=== PATIENT | female | born 1995 | race Caucasian/White ===

== ENCOUNTER 2020-07-16 19:59 | Emergency (ER) | payer MEDICAID, SELFPAY ==
[2020-07-16 20:05] VITALS: BP 110/67; PULSE 64; RESP 16; TEMP 36.4; O2SAT 97; BMI 23.4
--- NOTE | 2020-07-16 20:36 | ED.FEMALEGU ---
HPI - Female Genitourinary General Chief complaint: Vaginal Bleeding Stated complaint: abd pain Time Seen by Provider: 07/16/20 20:27 Source: patient Mode of arrival: ambulatory Limitations: no limitations History of Present Illness HPI Narrative: Who comes to the emergency room complaining of vaginal bleeding for 1 week. Patient states he has been using extra absorbent pads per day the last week. Patient complaining cramping. Patient states a few days ago she was supposed to get her menstrual period. Related Data Previous Rx's Medication Instructions Recorded sulfamethoxazole-trimethoprim 1 tab PO BID #5 tab 07/16/20 [Bactrim] Allergies Allergy/AdvReac Type Severity Reaction Status Date / Time No Known Allergies Allergy Verified 07/16/20 20:05 [No Known Allergies*] Review of Systems Review of Systems: Constitutional : No Weight loss, No Fever, No Chills, No Night Sweats, No Fatigue, No Malaise ENT/Mouth : No Hearing loss, No Ear Pain, No Nasal Congestion, No Sinus Pain, No Hoarseness, No sore throat, No Rhinorrhea, No Swallowing Difficulty Eyes: No Eye Pain, No Swelling, No Redness, No Foreign Body, No Discharge, No Vision Changes Cardiovascular : No Chest Pain, No SOB, No Dyspnea on Exertion, No Orthopnea, No Edema, No Palpitations Respiratory : No Cough, No Sputum, No Wheezing, No Smoke Exposure, No Dyspnea Gastrointestinal : No Nausea, No Vomiting, No Diarrhea, No Constipation, No abdominal Pain, No Hematochezia, No Melena Genitourinary : Patient complaining of irregular vaginal bleeding starting 5 days ago, No Dysuria, No Urinary Frequency, No Hematuria, No Urinary Incontinence, No Urgency, No Flank Pain, No Urinary Flow Changes, No Hesitancy Musculoskeletal : No joint pain, No Myalgias, No Joint Swelling Skin : No Skin Lesions, No rash Neuro : No Weakness, No Numbness, No Paresthesias, No Loss of Consciousness, No Dizziness, No Headache Psych : No Anxiety/Panic, No Depression, No SI/HI/AH/VH, No Social Issues, Heme/Lymph: No Bruising, No Bleeding,No Lymphadenopathy Endocrine : No Polyuria, No Polydipsia, No Temperature Intolerance PMF Past Medical History Surgical History (Updated 07/16/20 @ 20:10 by Kiara Penny) H/O tubal ligation Social History Social History Alcohol intake: unknown Smoked in Last 30 Days: No Use of substances other than those prescribed or required for medical reasons: No Advance Directives: No Advance Directives Information Provided: No Physical Exam Vital Signs: Vital Signs: Last Vital Signs Temp 97.6 F 07/16/20 20:05 Pulse 61 07/16/20 21:26 Resp 16 07/16/20 20:05 BP 101/74 07/16/20 21:26 Pulse Ox 97 07/16/20 20:05 Body Mass Index 23.4 Appearance: Alert. Oriented X3. No acute distress. Eyes: Pupils equal, round and reactive to light. ENT: Pharynx normal. Neck: Normal inspection. Neck supple. No lymph nodes noted. No crepitus CVS: Normal heart rate and rhythm. Pulses normal. Normal S1 and S2 Respiratory: No respiratory distress. Breath sounds normal. No Wheezing. No rales Abdomen: Soft and nontender. No rigidity. No distention. good BS x4 : small to moderate amount of dark colored blood in vaginal canal, there is no active bleeding from the cervix or the vaginal shipley Skin: Skin warm and dry. Normal skin color. Normal skin turgor. Extremities: No lower extremity edema. No lower extremity edema. No Lacerations. No Rash Neuro: Oriented X 3. No motor deficit. No sensory deficit. Moving all extermities. No slurred speech. Course Course Course Narrative: I discussed the labs with the patient, patient will follow-up with her primary care physician. Patient's bleeding likely secondary to dysfunctional uterine bleeding MDM - Female Genitourinary Lab Data Result diagrams: 07/16/20 20:50 07/16/20 20:50 Labs: Lab Results 07/16/20 07/16/20 07/16/20 Range/Units 20:50 20:50 20:50 WBC 8.3 (4.8-10.8) X10*3/uL RBC 4.87 (4.20-5.50) X10*6/uL Hgb 14.1 (12.0-16.0) g/dl Hct 42.9 (37-47) % MCV 88.1 (80-98) fL MCH 29.0 (27.0-33.0) pg MCHC 32.9 (31.0-35.0) g/dl RDW 14.1 (11.0-16.0) % Plt Count 136 L (160-400) X10*3/uL MPV 13.2 H (9.4-12.3) fL Immature Gran % (Auto) 0.1 (0.0-0.4) % Neut % (Auto) 58.0 (45-73) % Lymph % (Auto) 35.5 (20-40) % [place] % (Auto) 3.6 (2-11) % Eos % (Auto) 2.3 (0-4) % Baso % (Auto) 0.5 (0-2) % Lymph # (Auto) 3.0 (1.2-4.9) X10*3/uL [place] # (Auto) 0.3 (0.1-1.2) X10*3/uL Eos # (Auto) 0.2 (0.0-0.4) X10*3/uL Baso # (Auto) 0.0 (0.0-0.2) X10*3/uL Abs Immat Gran (auto) 0.01 (0.00-0.03) X10*3/uL Absolute Neuts (auto) 4.8 (2.0-8.3) X10*3/uL Absolute Nucleated RBC 0.000 (0.0-0.012) X10*3/uL Nucleated RBC % (auto) 0.0 (0.0-0.2) /100WBC Smear Tech's Comments VERIFIED Sodium 142 (135-145) mmol/L Potassium 4.3 (3.3-5.1) mmol/l Chloride 110 H (96-108) mmol/L Carbon Dioxide 23 (22-29) mmol/L Anion Gap 13 (12-20) BUN 12 (9-16) mg/dL Creatinine 0.80 (0.5-1.4) mg/dL Estim Creat Clear Calc 76.5 Estimated GFR > 60 Random Glucose 81 (60-115) mg/dL Calcium 8.5 (8.4-10.2) mg/dL Total Bilirubin 0.3 (0.0-1.0) mg/dL Direct Bilirubin < 0.2 (0.0-0.5) mg/dL AST 14 (5-31) U/L ALT 7 (0-31) U/L Alkaline Phosphatase 67 (39-117) U/L Total Protein 7.0 (6.5-8.0) g/dL Albumin 4.2 (3.5-5.0) g/dL Beta HCG, Quant < 2 mIU/mL Urine Color Urine Appearance Urine pH (5.0-8.0) Ur Specific [place] (1.005-1.025) Urine Protein (NEG-TRACE) MG/DL Urine Glucose (UA) (NEG) MG/DL Urine Ketones (NEG) MG/DL Urine Blood (NEG) Urine Nitrite (NEG) Ur Leukocyte Esterase (NEG) Urine RBC (0) /HPF Urine WBC (0-4) /HPF Ur Squamous Epith Cells /LPF Urine Bacteria /LPF 07/16/ Range/Units 21:14 WBC (4.8-10.8) X10*3/uL RBC (4.20-5.50) X10*6/uL Hgb (12.0-16.0) g/dl Hct (37-47) % MCV (80-98) fL MCH (27.0-33.0) pg MCHC (31.0-35.0) g/dl RDW (11.0-16.0) % Plt Count (160-400) X10*3/uL MPV (9.4-12.3) fL Immature Gran % (Auto) (0.0-0.4) % Neut % (Auto) (45-73) % Lymph % (Auto) (20-40) % [place] % (Auto) (2-11) % Eos % (Auto) (0-4) % Baso % (Auto) (0-2) % Lymph # (Auto) (1.2-4.9) X10*3/uL [place] # (Auto) (0.1-1.2) X10*3/uL Eos # (Auto) (0.0-0.4) X10*3/uL Baso # (Auto) (0.0-0.2) X10*3/uL Abs Immat Gran (auto) (0.00-0.03) X10*3/uL Absolute Neuts (auto) (2.0-8.3) X10*3/uL Absolute Nucleated RBC (0.0-0.012) X10*3/uL Nucleated RBC % (auto) (0.0-0.2) /100WBC Smear Tech's Comments Sodium (135-145) mmol/L Potassium (3.3-5.1) mmol/l Chloride (96-108) mmol/L Carbon Dioxide (22-29) mmol/L Anion Gap (12-20) BUN (9-16) mg/dL Creatinine (0.5-1.4) mg/dL Estim Creat Clear Calc Estimated GFR Random Glucose (60-115) mg/dL Calcium (8.4-10.2) mg/dL Total Bilirubin (0.0-1.0) mg/dL Direct Bilirubin (0.0-0.5) mg/dL AST (5-31) U/L ALT (0-31) U/L Alkaline Phosphatase (39-117) U/L Total Protein (6.5-8.0) g/dL Albumin (3.5-5.0) g/dL Beta HCG, Quant mIU/mL Urine Color RED Urine Appearance TURBID Urine pH 5.0 (5.0-8.0) Ur Specific [place] 1.025 (1.005-1.025) Urine Protein 3+ H (NEG-TRACE) MG/DL Urine Glucose (UA) 100 H (NEG) MG/DL Urine Ketones 15 (NEG) MG/DL Urine Blood 3+ H (NEG) Urine Nitrite POS H (NEG) Ur Leukocyte Esterase 2+ H (NEG) Urine RBC TNTC H (0) /HPF Urine WBC 1-4 (0-4) /HPF Ur Squamous Epith Cells TRACE /LPF Urine Bacteria 2+ /LPF Discharge Plan Discharge Clinical Impression: Dysfunctional uterine bleeding UTI (urinary tract infection) Qualifiers: Urinary tract infection type: site unspecified Patient Disposition: Home, Self-Care Instructions: Dysfunctional Uterine Bleeding (ED) Additional Instructions: Please follow-up with your primary care physician tomorrow. If you have any worsening or new symptoms, please return to the emergency room or call 911 Prescriptions: New sulfamethoxazole-trimethoprim [Bactrim] 400-80 mg tablet 1 tab PO BID Qty: 5 RF: 0
[2020-07-16 20:56] LABS: Hemoglobin 14.1 g/dl (12.0-16.0); Lymphocytes Percent Auto 35.5 % (20-40); MANUAL DIFF FLAG SCAN; Mean Corpuscular HGB Conc 32.9 g/dl (31.0-35.0); Mean Corpuscular Volume 88.1 fL (80-98); Red Cell Distribution Width 14.1 % (11.0-16.0); SCAN SMEAR FLAG 1
[2020-07-16 20:58] LABS: Basophils Percent Auto 0.5 % (0-2); Eosinophils Absolute Auto 0.2 X10*3/uL (0.0-0.4); Eosinophils Percent Auto 2.3 % (0-4); Hematocrit 42.9 % (37-47); Imm Gran Abs Auto 0.01 X10*3/uL (0.00-0.03); Imm Gran Pct Auto 0.1 % (0.0-0.4); Mean Platelet Volume 13.2 fL (9.4-12.3); Monocytes Absolute Auto 0.3 X10*3/uL (0.1-1.2); Monocytes Percent Auto 3.6 % (2-11); Neutrophils Absolute Auto 4.8 X10*3/uL (2.0-8.3); Platelet Count 136 X10*3/uL (160-400); Red Blood Count 4.87 X10*6/uL (4.20-5.50); White Blood Count 8.3 X10*3/uL (4.8-10.8)
--- NOTE | 2020-07-16 20:59 | PC.NURSE ---
pT A&O, NO SOB OR CHEST PAIN. PT STATED SHE IS HAVING IRREGULAR PERIOD.
[2020-07-16 21:00] LABS: PLT ABN DIST 1
[2020-07-16 21:18] LABS: SLIDE REVIEW VERIFIED
[2020-07-16 21:19] LABS: Alanine Aminotransferase 7 U/L (0-31); Albumin Level 4.2 g/dL (3.5-5.0); Alkaline Phosphatase 67 U/L (39-117); Anion Gap 13 (12-20); Aspartate Amino Transferase 14 U/L (5-31); Bilirubin Direct < 0.2 mg/dL (0.0-0.5); Bilirubin Total 0.3 mg/dL (0.0-1.0); Blood Urea Nitrogen 12 mg/dL (9-16); Calcium 8.5 mg/dL (8.4-10.2); Carbon Dioxide 23 mmol/L (22-29); Chloride 110 mmol/L (96-108); Creatinine Clr Calc Pharmacy 76.5; Estimated Glomerular Filt Rate > 60; Glucose Random 81 mg/dL (60-115); Potassium 4.3 mmol/l (3.3-5.1); Sodium 142 mmol/L (135-145)
[2020-07-16 21:25] LABS: HCG Quantitative < 2 mIU/mL
[2020-07-16 21:26] VITALS: BP 101/74; PULSE 61
[2020-07-16] MEDS: Acetaminophen 325 MG TABLET 650 MG PO (21:26)
[2020-07-16 21:34] LABS: Glucose Urine UA 100 MG/DL (NEG); Leukocyte Esterase Urine 2+ (NEG); Nitrite Urine POS (NEG); Specific Gravity - Urine 1.025 (1.005-1.025); Urine Blood 3+ (NEG); Urine Ketones 15 MG/DL (NEG); Urine Protein 3+ MG/DL (NEG-TRACE)
[2020-07-16 21:58] LABS: Appearance Urine TURBID; Color Urine RED
[2020-07-16 21:59] LABS: Bacteria Urine 2+ /LPF; RBC Urine TNTC /HPF (0); Squamous Epithelial Cell Urine TRACE /LPF
--- NOTE | 2020-07-16 23:12 | PC.NURSE ---
pt had no abd pain or n/v. no denies any heavy bleeding at this time.
== END 2020-07-16 23:25 | disposition home or self-care (01) ==
PROVIDERS: Emergency Provider Emergency Medicine; PCP Nurse Practitioner Family
DX: N93.8 Other specified abnormal uterine and vaginal bleeding (principal); N39.0 Urinary tract infection, site not specified
CPT/HCPCS: 36415; 80048; 80076; 81001; 84702; 85025; 87086; 87147; 99283; 99284

== ENCOUNTER 2022-12-11 14:45 | Outpatient (REF) | payer MEDICAID, SELFPAY ==
--- NOTE | ~2022-12-11 | US_ITS ---
EXAMINATION: US DIAGNOSTIC ULTRASOUND BREAST, LEFT CLINICAL INFORMATION: 27-year-old with recent left breast pain. Small palpable nodule noted anterior lateral left breast at time of clinical exam. No ecchymosis. No discharge. Family history breast cancer maternal aunt. No prior breast imaging. TC score 13%. COMPARISON: None available.. TECHNIQUE: Ultrasound left breast is targeted to both areas of recent left breast pain as well as the palpable area noted at clinical exam. Grayscale imaging and color Doppler are performed without and with harmonics. Patient is able to point areas at time of imaging. FINDINGS: There is a small oval simple cyst at site of recent palpable concern anterior upper outer left breast measuring approximately 0.7 x 0.3 cm. There is no solid mass or architectural abnormality or focal duct ectasia. The remainder of the targeted areas demonstrate no cystic or solid mass or architectural abnormality. No skin thickening or edema tracking in soft tissue planes. No abnormal color flow. Results are discussed with the patient at time of visit. US/US breast LT limited IMPRESSION: -Small simple cyst at site of recent palpable concern measuring 0.7 x 0.3 cm. -No solid mass or architectural abnormality. No inflammatory changes. ASSESSMENT: BI-RADS 2: Benign RECOMMENDATION: Routine annual mammography screening, beginning age 40, or earlier as clinical risk factors warrant. This patient's information was entered into a reminder system with a target due date for their next mammogram.
== END 2022-12-11 14:46 | disposition home or self-care (01) ==
LOC: HO.MAMMO 14:45
PROVIDERS: Visit Provider General Practice
DX: N64.4 Mastodynia (principal)
CPT/HCPCS: 76642

== ENCOUNTER 2023-06-17 15:45 | Outpatient (REF) | payer MEDICAID, SELFPAY ==
[2023-06-18 13:41] LABS: CT PCR NOT DETECTED (Not Detect.); NG PCR NOT DETECTED (Not Detect.)
== END 2023-06-17 15:46 | disposition home or self-care (01) ==
LOC: HO.HHCL 15:45
PROVIDERS: Visit Provider Student in an Organized Health Care Education/Training Program
DX: Z11.3 Encounter for screening for infections with a predominantly sexual mode of transmission (principal)
CPT/HCPCS: 0353U

== ENCOUNTER 2023-07-15 16:29 | Outpatient (REF) | payer MEDICAID, SELFPAY ==
[2023-07-16 07:22] LABS: HBS Num1 0.22 mIU/mL (0-7.99); HBc Num1 0.05 S/CO (0.00-0.79); HBsAGNum1 0.44 S/CO (0.00-0.99); HIV AB/AG Nonreactive (Nonreactive); HIV Num 1 0.07 S/CO (0.00-0.99); Hepatitis A Antibody IgM 0.16 Index (0-0.79); Hepatitis B Core Antibody Nonreactive (Nonreactive); Hepatitis B Surface Antigen Negative (Negative); ~HepC Num1 0.05 S/CO (0.00-0.79); ~Hepatitis A Antibody IgM Nonreactive (Nonreactive); ~Hepatitis B Surface Antibody NONREACTIVE (Nonreactive); ~Hepatitis C Antibody Nonreactive (Nonreactive)
[2023-07-16 15:56] LABS: CT PCR NOT DETECTED (Not Detect.); NG PCR NOT DETECTED (Not Detect.)
[2023-07-17 12:01] LABS: BV Int Neg Control Negative (Negative); BV Int Pos Control Positive (Positive)
[2023-07-18 09:34] LABS: RPR Rapid Plasma Reagin NON-REACTIVE (NON-REACTIVE)
== END 2023-07-15 16:30 | disposition home or self-care (01) ==
LOC: HO.HHCL 16:29
PROVIDERS: Visit Provider Internal Medicine
DX: N89.8 Other specified noninflammatory disorders of vagina (principal)
CPT/HCPCS: 0353U; 36415; 86592; 86704; 86706; 86709; 86803; 87340; 87389; 87480; 87510; 87660

== ENCOUNTER 2023-09-04 12:17 | Outpatient (REF) | payer MEDICAID, SELFPAY | END 2023-09-04 12:18 | disposition home or self-care (01) | LOC: HO.HHCL 12:17 | PROVIDERS: Visit Provider Student in an Organized Health Care Education/Training Program | DX: Z00.00 Encounter for general adult medical examination without abnormal findings (principal); R93.89 Abnormal findings on diagnostic imaging of other specified body structures; Z11.3 Encounter for screening for infections with a predominantly sexual mode of transmission; Z11.59 Encounter for screening for other viral diseases; Z13.220 Encounter for screening for lipoid disorders; Z13.1 Encounter for screening for diabetes mellitus; Z13.29 Encounter for screening for other suspected endocrine disorder | CPT/HCPCS: 36415; 80053; 80061; 83036; 84443; 85025; 86704; 86706; 86780; 86803; 87340; 87389 ==

== ENCOUNTER 2024-05-20 | Outpatient (REF) | payer MEDICAID, SELFPAY | END 2024-05-20 00:01 | disposition home or self-care (01) | LOC: HO.HHCLNP | PROVIDERS: Visit Provider Internal Medicine | DX: M54.50 Low back pain, unspecified (principal) | CPT/HCPCS: 87086 ==

== ENCOUNTER 2024-07-16 16:32 | Outpatient (REF) | payer MEDICAID, SELFPAY ==
[2024-07-16 16:51] LABS: Appearance Urine Clear; Color Urine Yellow; Glucose Urine UA Negative (Negative); Leukocyte Esterase Urine Trace (Negative); Nitrite Urine Negative (Negative); PH 6.5 (5.0-9.0); Specific Gravity - Urine 1.025 (1.005-1.025); UMIC TRIGGER UACC YES; Urine Blood Negative (Negative); Urine Ketones Negative (Negative); Urine Protein Negative (Neg-Trace)
[2024-07-16 16:54] LABS: Bacteria Urine None Seen (None Seen); Hyaline Casts Urine 0-2 /LPF (0-2); RBC Urine 0-2 /HPF (0-2); Squamous Epithelial Cell Urine 0-2 /HPF (0-2); UACC Culture Trigger YES
[2024-07-16 18:14] LABS: Bacterial Vaginosis PCR POSITIVE (Negative); Candida Group PCR NOT DETECTED (Not Detect); Candida glab krusei PCR NOT DETECTED (Not Detect); Trichomonas vaginalis PCR DETECTED (Not Detect)
[2024-07-17 04:41] LABS: CT PCR NOT DETECTED (Not Detect.); NG PCR NOT DETECTED (Not Detect.)
== END 2024-07-16 16:33 | disposition home or self-care (01) ==
LOC: HO.HHCLNP 16:32
PROVIDERS: Visit Provider Student in an Organized Health Care Education/Training Program
DX: R10.2 Pelvic and perineal pain (principal)
CPT/HCPCS: 0352U; 81001; 87086; 87491; 87591

== ENCOUNTER 2024-07-23 10:24 | Outpatient (REF) | payer MEDICAID, SELFPAY ==
[2024-07-23 11:21] LABS: MANUAL DIFF FLAG NO
[2024-07-23 11:26] LABS: Basophils Percent Auto 0.5 % (0-2); Eosinophils Absolute Auto 0.1 X10*3/uL (0.0-0.4); Eosinophils Percent Auto 0.7 % (0-4); Hematocrit 41.2 % (37.0-47.0); Hemoglobin 13.9 g/dl (12.0-16.0); Imm Gran Abs Auto 0.03 X10*3/uL (0.00-0.03); Imm Gran Pct Auto 0.4 % (0.0-0.4); Lymphocytes Absolute Auto 2.3 X10*3/uL (1.2-4.9); Lymphocytes Percent Auto 27.4 % (20-40); Mean Corpuscular HGB Conc 33.7 g/dl (31.0-35.0); Mean Corpuscular Hemoglobin 29.3 pg (27.0-33.0); Mean Corpuscular Volume 86.7 fL (80.0-98.0); Mean Platelet Volume 12.9 fL (9.4-12.3); Monocytes Absolute Auto 0.4 X10*3/uL (0.1-1.2); Monocytes Percent Auto 5.1 % (2-11); Neutrophils Absolute Auto 5.6 x10*3/uL (2.0-8.3); Neutrophils Percent Auto 65.9 % (45-73); Platelet Count 161 X10*3/uL (160-400); Red Blood Count 4.75 X10*6/uL (4.20-5.50); Red Cell Distribution Width 15.2 % (11.0-16.0); White Blood Count 8.5 X10*3/uL (4.8-10.8)
[2024-07-23 11:47] LABS: Alanine Aminotransferase 18 U/L (0-31); Alkaline Phosphatase 66 U/L (39-117); Anion Gap 9 (12-20); Aspartate Amino Transferase 24 U/L (5-31); Bilirubin Total 0.2 mg/dL (0.0-1.0); Blood Urea Nitrogen 9 mg/dL (9-16); Calcium 9.2 mg/dL (8.4-10.2); Carbon Dioxide 25 mmol/L (22-29); Chloride 111 mmol/L (96-108); Estimated Glomerular Filt Rate > 60; Glucose Random 89 mg/dL (60-115); Sodium 141 mmol/L (135-145); Total Protein 6.5 g/dL (6.5-8.0)
[2024-07-23 12:00] LABS: HBc Num1 0.09 S/CO (0.00-0.79); HBsAGNum1 0.37 S/CO (0.00-0.99); Hepatitis B Core Antibody Nonreactive (Nonreactive); Hepatitis B Surface Antigen Negative (Negative); ~Hepatitis B Surface Antibody NONREACTIVE (Nonreactive)
[2024-07-24 11:49] LABS: HIV AB/AG Nonreactive (Nonreactive); Syphilis Screen Nonreactive (Nonreactive); ~HepC Num1 0.12 S/CO (0.00-0.79); ~Hepatitis C Antibody Nonreactive (Nonreactive)
[2024-07-26 11:24] LABS: HIV RNA PCR Qn Copies NOT DETECTED copies/mL (NOT DETECTED); HIV RNA PCR Qn Log Copies NOT DETECTED (NOT DETECTED)
== END 2024-07-23 10:25 | disposition home or self-care (01) ==
LOC: HO.HHCL 10:24
PROVIDERS: Visit Provider Student in an Organized Health Care Education/Training Program
DX: Z11.4 Encounter for screening for human immunodeficiency virus [HIV] (principal); R10.2 Pelvic and perineal pain; Z79.899 Other long term (current) drug therapy
CPT/HCPCS: 36415; 80053; 85025; 86704; 86706; 86780; 86803; 87340; 87389; 87536

== ENCOUNTER 2024-08-31 17:54 | Outpatient (REF) | payer MEDICAID, SELFPAY ==
[2024-09-01 05:26] LABS: CT PCR NOT DETECTED (Not Detect.); NG PCR NOT DETECTED (Not Detect.)
[2024-09-01 08:43] LABS: Bacterial Vaginosis PCR POSITIVE (Negative); Candida Group PCR NOT DETECTED (Not Detect); Candida glab krusei PCR NOT DETECTED (Not Detect); Trichomonas vaginalis PCR NOT DETECTED (Not Detect)
== END 2024-08-31 17:55 | disposition home or self-care (01) ==
LOC: HO.HHCLNP 17:54
PROVIDERS: Visit Provider Internal Medicine
DX: N89.8 Other specified noninflammatory disorders of vagina (principal); Z11.3 Encounter for screening for infections with a predominantly sexual mode of transmission
CPT/HCPCS: 0352U; 87491; 87591

== ENCOUNTER 2024-10-01 15:59 | Outpatient (REF) | payer MEDICAID, SELFPAY ==
--- OUTSIDE RECORDS SUMMARY | 2024-10-01 19:28 | XMS_ITS | Encounter Summary ---
Author Organization [facility] Address [address] [place] [phone] Phone Care Team Providers Care Core Stripper Name Role Phone Ericka Cheek MD Primary Care Provider [phone] Encounter Details Date Type Department Care Team (Late st Contact Info) Description 03/12/2012 Documentation EM Family Medicine [address] [place] [address] Family Medicine, Physician [address] [place], [place] [phone] Social History Tobacco Use Types Packs/Day Years Used Date Smoking Tobacco: Never Assessed Comments Unknown Sex and Gender Information Value Date Recorded Sex Assigned at Not on file Legal Sex Female 4:37 PM EDT Gender Identity Not on file Sexual Orientation Not on file documented as of this encounter Plan of Treatment Not on file documented as of this encounter Visit Diagnoses Not on filedocumented in this encounter Care Teams Core Stripper Relationship Specialty Start Date End Date Ericka Cheek MD [address] [place] [address] [place] [address] PCP - General 04/12/17 02/28/23 documented as of this encounter
--- OUTSIDE RECORDS SUMMARY | 2024-10-01 19:28 | XMS_ITS | Encounter Summary ---
Author Organization [employer] Address [address] [facility] 7t [place] [address] Care Team Providers Care Senior Occupational Therapist Name Role Phone Eli Kenny MD Primary Care Pro vider Encounter Details Date Type Department Care Team ([facility] Contact Info) Description 09/01/2024 Telephone [facility] MED & PEDS [address] [place], [place] [phone] Filemon Monge MD [address] [place], [place] [phone] Social History Tobacco Use Types Packs/Day Years Used Date Smoking Tobacco: Some Days Cigarettes Passive Smoke Exposure: Never Smokeless Tobacco: Never Comments:Start smoking 17 y of age ,stopped for few years , 1-2 cig a day Alcohol Use Standard Drinks/Week Comments Never 0 (1 standard drink = 0.6 oz pur e alcohol) Depression Answer Date Recorded Patient Health Questionnaire-9 Score 3 05/17/2023 Housing Stability Answer Date Recorded What is your housing situation today? I have emmanuelle olson 06/17/[address] you li ve. Do you have problems with any of the following? None of the above 06/17/2023 Food Insecurity Answer Date Recorded Within the past 12 months, y ou worried that your food would run out before you got money to buy more: Sometimes True 2022 Within the past 12 months,th e food you bought just didn't last and you didn't have enough money to get more: Sometimes True 06/17/2023 Transportation Answer Date Recorded In the past 12 months, has l ack of transportation kept you from medical appts, meetings, work or from getting things needed for daily living? Yes, it has kept me from medical appointments or getting medications. 06/11/2023 Utilities Answer Date Recorded In the past 12 months, has t he electric, gas, oil or water company threatened to shut off services in your home? No 06/17/2023 Depression Answer Date Recorded Patient Health Questionnaire-2 Score 1 05/17/2023 Comments Unknown Sex and Gender Information Value Date Recorded Sex Assigned at Female 07/02/2022 10:24 AM EDT Legal Sex Female 10:24 AM EDT Gender Identity Female 07/02/2022 10:24 AM EDT Sexual Orientation Straight 07/02/2022 10 :24 AM EDT documented as of this encounter Miscellaneous Notes * Telephone Encounter - Yifan Torres RN - 09/01/2024 9:22 AM EST Patient returned the call. RN informed patient of message below from Dr. Monge. Patient verbalized understanding and agreed to plan. * Telephone Encounter - Yifan Torres RN - 09/01/2024 9:11 AM EST Call placed to patient to inform of message below from Dr. Monge. No answer, left voicemail to return the call. Sending task to PCP's team nurse's to re- attempt call. * Telephone Encounter - Yifan Torres RN - 09/01/2024 9:11 AM EST ----- Message from Filemon Monge MD sent at 09/01/2024 9:00 AM EST ----- Please call. Workup is positive for bacterial vaginosis. Patient was already prescribed metronidazole to start taking 2 times a day for 7 days. No change in management for now. ----- Message ----- From: Iveth Ricardo MA Sent: 08/31/2024 11:20 AM EST To: Filemon Monge MD documented in this encounter Plan of Treatment Not on file documented as of this encounter Visit Diagnoses Not on filedocumented in this encounter Additional Health Concerns Assessment Noted Time PHQ-9 Depression Total Score: 3 05/17/20 23 1:39 PM EDT documented as of this encounter Care Teams Senior Occupational Therapist Relationship Specialty Start Date End Date Eli Kenny MD [address] [place] [address] PCP - General Internal Medicine 02/06/23 documented as of this encounter
--- OUTSIDE RECORDS SUMMARY | 2024-10-01 19:28 | XMS_ITS | Encounter Summary ---
Author Organization [employer] Address [address] [facility] 7 [place] [address] Care Team Providers Care Crushing Mill Operator Name Role Phone Eli Kenny MD Primary Care Pro vider Encounter Details Date Type Department Care Team ([facility] st Contact Info) Description 09/01/2024 Orders Only [facility] CH[facility] MED & PEDS [address] [place], [place] [phone] Filemon Monge MD [address] [place], [place] [phone] Social History Tobacco Use Types Packs/Day Years [...] AM EDT documented as of this encounter Plan of Treatment Not on file documented as of this encounter Visit Diagnoses Not on filedocumented in this encounter Additional Health Concerns Assessment Noted Time PHQ-9 Depression Total Score: 3 05/17/20 23 1:39 PM EDT documented as of this encounter Care Teams Crushing Mill Operator Relationship Specialty Start Date End Date Eli Kenny MD [address] [place] [id number] PCP - General Internal Medicine 02/06/23 documented as of this encounter
--- OUTSIDE RECORDS SUMMARY | 2024-10-01 19:28 | XMS_ITS | Encounter Summary ---
Author Organization [employer] Address [address] [facility] 7[address] [place] [address] Care Team Providers Care Communications Programmer Name Role Phone Eli Kenny MD Primary Care Pro vider Encounter Details Date Type Department Care Team (Latest Contact Info) Description 10/01/2024 Travel Social History Tobacco Use Types Packs/Day Years [...] Patient Health Questionnaire-2 Score 1 05/17/2023 Comments No Sex and Gender Information Value Date Recorded [...] documented as of this encounter Care Teams Communications Programmer Relationship Specialty Start Date End Date Eli Kenny MD [address] [place] [id number] PCP - General Internal Medicine 02/06/23 documented as of this encounter
--- OUTSIDE RECORDS SUMMARY | 2024-10-01 19:28 | XMS_ITS | Encounter Summary ---
Author Organization [employer] Address [address] [facility] 7 [place] [address] Care Team Providers Care Billiard Parlor Manager Name Role Phone Eli Kenny MD Primary Care Pro vider Reason for Visit * Reason Onset Date Comments medication 07/19/2023 Encounter Details Date Type Department Care Team ([facility] st Contact Info) Description 07/19/2023 Telephone [facility] ADULT DENTAL [address], [place] [phone] Alfredito Diaz DDS [address] [place] [address] medication Social History Tobacco Use Types Packs/Day Years [...] encounter Miscellaneous Notes * Telephone Encounter - Tasha Almaraz - 07/19/2023 2:47 PM EST Patient is looking for a script for pain to be sent to the pharmacy because the tylenol is not working. Patient was seen with [employer] student documented in this encounter Plan of Treatment Not on file documented as of this encounter Visit Diagnoses Not on filedocumented in this encounter Additional Health Concerns Assessment Noted Time PHQ-9 Depression Total Score: 3 05/17/20 23 1:39 PM EDT documented as of this encounter Care Teams Billiard Parlor Manager Relationship Specialty Start Date End Date Eli Kenny MD [address] [place] [id number] PCP - General Internal Medicine 02/06/23 documented as of this encounter
--- OUTSIDE RECORDS SUMMARY | 2024-10-01 19:28 | XMS_ITS | Encounter Summary ---
Author Organization [employer] Address [address] [place] [address] Care Team Providers Care Financial Sales Advisor Name Role Phone Eli Kenny MD Primary Care Pro vider Reason for Referral * Consultation (Routine) - Closed Specialty Diagnoses / Procedures Referred By Danyel coronado Referred To Contact Obstetrics Diagnoses Procreative management Anu Ramirez CNM [address] [place] [address] Phone: tel: fax: Reproductive Medicine[address] Phone: tel: fax: Referral ID Status Reason Start Date Expiration Date V isits Requested Visits Authorized [id number] Closed Specialty Services Required 10/01/2024 10/01/2025 1 1 Encounter Details Date Type Department Care Team (Latest Contact Info) Description 10/01/2024 11:00 AM EST Procedure Visit [facility] [address], [place] [phone] Anu Ramirez CNM [address], [place] [phone] Cervical cancer screening (Primary Dx); Procreative management; Nausea; Vaginal discharge Social History Tobacco Use Types Packs/Day Years [...] AM EDT documented as of this encounter Last Filed Vital Signs Vital Sign Reading Time Taken Comments Blood Pressure 116/73 10/01/2024 11:21 AM EST Pulse 66 10/01/2024 11:21 AM EST Temperature 36.4 ??C (97.5 ??F) 10/01/2024 11:[address] Respiratory Rate 20 10/01/2024 11:21 AM EST Oxygen Saturation 99% 10/01/2024 11:21 AM EST Inhaled Oxygen Concentration - - Weight 55.2 kg (121 lb 9.6 oz) 10/01/2024 11:21 AM EST Height 151.1 cm (4' 11.5 ) 10/01/2024 11:[address] Body Mass Index 24.15 10/01/2024 11:21 AM EST documented in this encounter Progress Notes * Anu Ramirez CNM - 10/01/2024 11:00 AM EST Subjective Patient ID: Cadence Medrano is a 29 y.o. female who presents for pap Here for pap, unsure of last pap. Treated for bacterial vaginosis 08/2024, Gonorrhea/Chlamydia/trichomonas negative. Previous history of trichomonas. Still notes discharge after finishing bacterial vaginosis treatment. She isn't sure if partner was ever treated. Has tubal ligation. Interested in tubal ligation reversal. . Previously on Truvada PrEP, doesn't want to continue. Not interested in DoxyPEP at this time. HIV, Hep C, syphilis Gonorrhea/Chlamydianegative with CRS 09/28/2024. Assisted AMAB partner, no safety concerns. Cadence is in residential with children, in process of getting more permanent housing. Feels safe. Notes some dryness of bilateral breast skin since being in residential. Using moisturizer which helps. LMP around 09/06. Notes nausea, some cramping/bloating, increased appetite and urinary frequency. Patient seen in conjunction with Brandy Ricardo, [employer] student. I was present for and confirmed all pertinent elements in the history, exam, assessment of the patient, and the plan of care, and agree with all findings. Review of Systems Genitourinary: Positive for frequency and vaginal discharge. Negative for decreased urine volume, dyspareunia, dysuria, flank pain, hematuria, menstrual problem, pelvic pain, urgency, vaginal bleeding and vaginal pain. Objective BP 116/73 (BP Location: Left arm, Patient Position: Sitting, BP Cuff Size: Adult) Pulse 66 Temp97.5 ??F (36.4 ??C) (Temporal) Resp 20 Ht 4' 11.5 (1.511 m) Wt 121 lb 9.6 oz (55.2 kg) LMP09/06/2024 (Approximate) SpO2 99% BMI 24.15 kg/m?? Physical Exam Exam conducted with a statement services representative present (Anu Ramirez CNM). Constitutional: Appearance: Normal appearance. Chest: Breasts: Right: Normal. No swelling, bleeding, inverted nipple, mass, nipple discharge, skin change or tenderness. Left: Normal. No swelling, bleeding, inverted nipple, mass, nipple discharge, skin change or tenderness. Genitourinary: General: Normal vulva. Labia: Right: No rash, tenderness, lesion or injury. Left: No rash, tenderness, lesion or injury. Vagina: Normal. No signs of injury and foreign body. No vaginal discharge, erythema, tenderness, bleeding or lesions. Cervix: No cervical motion tenderness, discharge, friability, lesion, erythema, cervical bleeding or eversion. Uterus: Normal. Not enlarged and not tender. Adnexa: Right adnexa normal and left adnexa normal. Right: No mass, tenderness or fullness. Left: No mass, tenderness or fullness. Lymphadenopathy: Upper Body: Right upper body: No supraclavicular or axillary adenopathy. Left upper body: No supraclavicular or axillary adenopathy. Neurological: Mental Status: She is alert. Psychiatric: Mood and Affect: Mood normal. Behavior: Behavior normal. Assessment/Plan Diagnoses and all orders for this visit: Cervical cancer screening - Pap Smear Cotest today. Will contact with results. Procreative management Discussed BTL as permanent control. If she is interested in future pregnancies, she would need either surgery to attempt to reverse BTL or in-vitro fertilization. Insurance may not cover these procedures. She would like referral to discuss further with infertility specialist. Nausea - POCT , urine manually resulted test negative today. Advised followup with PCP if symptoms persist. May also come to walkin clinic. Vaginal discharge - Bacterial Vaginosis Panel Bacterial vaginosis swab sent today. Will contact with results. Normal breast exam today. Continue moisturizer. documented in this encounter Plan of Treatment Scheduled Orders Name Type Priority Associated Diagnoses Order Schedule Pap Smear Pathology and Cytology Routine Cervical cancer screening Ordered: 10/01/2024 Bacterial Vaginosis Panel Microbiology Routine Vaginal discharge Ordered: 10/01/2024 Scheduled Referrals Name Type Priority Associated Diagnoses Order Schedule Referral to Infertility Outpatient Referral Routine Procreative management Expected: 10/01/2024 (Approximate), Expires: 10/01/2025 documented as of this encounter Procedures Procedure Name Priority Date/Time Associated Diagnosis Comments POCT , URINE Routine 10/01/2024 12:00 PM EST Nausea documented in this encounter Results * POCT , urine manually resulted (10/01/2024 12:00 PM EST) Preg Test, Ur Negative Negative, Indeterminate, None Detected, Invalid, Specimen unsatisfactory for evaluation, Weakly Positive QC Media Lot # [id number] Lot# Expiration Date [id number] Urine 10/01/2024 12:0 0 PM EST Anu MONTES POINT OF CARE TEST ENTER/ EDIT ORDERABLES Final Result documented in this encounter Visit Diagnoses Diagnosis Cervical cancer screening- Primary Screening for malignant neoplasm of the cervix Procreative management Nausea Nausea alone Vaginal discharge Leukorrhea, not specified as infective documented in this encounter Additional Health Concerns Assessment Noted Time PHQ-9 Depression Total Score: 3 05/17/20 23 1:39 PM EDT documented as of this encounter Care Teams Financial Sales Advisor Relationship Specialty Start Date End Date Eli Kenny MD [address] [place] [id number] PCP - General Internal Medicine 02/06/23 documented as of this encounter
--- OUTSIDE RECORDS SUMMARY | 2024-10-01 19:28 | XMS_ITS | Clinical Summary ---
Author Organization [employer] Address [address] [place] [address] 7 [place] [address] Care Team Providers Care [employer] Name Role Phone Eli Kenny MD Primary Care Pro vider Allergies No known active allergies Medications * This document contains information received from the source organization and may not represent a complete record from that organization. emtricitabine- tenofovir DF (Truvada) 200-300 MG tablet Take 1 tablet by mouth Once per day. 30 tablet 2 4 025 Active Additional Information Patient not taking.Reported on 07/16/2024 Cabotegravir ER (Apretude) 600 MG/3ML Suspension Extended Release 3 mL by Intramuscular route every 8 (eight) weeks. Ventrogluteal inj,start injection every month for 2 doses and then every other month 3 mL 3 4 025 Additional Information Patient not taking.Reported on 07/16/2024 metroNIDAZOLE (Flagyl) 500 MG tabletIndicati ons:Vaginal discharge Take 1 tablet (500 mg) by mouth 2 times daily for 7 days. 14 tablet 4 025 Active Problems Problem Noted Date Diagnosed Date Pelvic pain 07/16/2024 Acute right-sided low back pain without sciatica 05/20/2024 Breast pain 05/20/2024 History of tooth extraction 07/19/2023 Dental caries 07/16/2023 Family conflict 06/24/2023 Healthcare maintenance 05/18/2023 High risk sexual behavior 05/18/2023 Decreased hearing 05/18/2023 Tobacco use 05/18/[address] scan 05/18/2023 Depression, unspecified 05/18/2023 Assessment & Plan (06/24/2023 2:27 PM EDT): Assessment: Patient presents with depressive symptoms. No risk for self-harm, SI, or HI. Reason for visit is to assess symptoms and provide support to patient. Symptoms are present in the passing of her mother one year ago. Provided education on how to cope with symptoms. provider will complete referral for OP therapy. At this time Cadence Medrano meets criteria for Visit Diagnoses: Problem List Items Addressed This Visit Other Depression, unspecified - Primary Family conflict Patient ready to address current needs Yes Strengths include support from aunt PLAN: 1. Follow up with [facility]: Not recommended for follow-up 2. Patient goal is be connected with a therapist 3. Behavioral Recommendations a. Utilize coping skills provided b. Engage in OP therapy once established c. Reach out to [facility] for additional support Headache 05/18/2023 Encounters Date Type Department Care Team Description 10/01/2024 11:00 AM EST Procedure Visit [address] [address] Aun Ramirez CNM Cervical cancer screening (Primary Dx); Procreative management; Nausea; Vaginal discharge 10/01/2024 Travel 09/22/[address] [address] Eli Kenny MD Call Back Request 09/01/2024 Telephone [facility] [address] [place] [phone] Filemon Monge MD 09/01/2024 Orders Only [facility] [address] [place] [address] Filemon Monge MD 08/31/2024 11:20 AM EST Office Visit [facility] [address] [place] [phone] Filemon Monge MD Screen for STD (sexually transmitted disease) (Primary Dx); Vaginal discharge 08/24/[address] [address] Eli Kenny MD Nurse Triage 07/24/[address] [place] [address] Belinda Boateng, commercial electrician Orders 07/23/2024 Orders Only [address] [address] Eli Kenny MD 07/23/2024 Telephone [facility] [address] [place] [phone] Eli Kenny MD Commincation/Results Request (Pt called in requesting results. Per Pedi FD stated to pt, message will be sent to [facility] number. # in chart confirmed. Pt verbally agreed./) 07/22/[address] [address] Eli Kenny MD 07/17/2024 Orders Only [address] [address] Eli Kenny MD 07/16/2024 1:45 PM EST Office Visit [address] [phone] Eli Kenny MD Decreased hearing of left ear (Primary Dx); Pelvic pain; Encounter for immunization; Dietary counseling; Exercise counseling; Breast pain; High risk sexual behavior, unspecified type; Tobacco use 07/16/2024 Travel 07/16/[address] [address] Eli eKnny MD Nurse Triage from Last 3 Months Immunizations Name Administration Dates Next Due DTP 03/01/1995, 4,01/10/1994,10/24 DTaP, 5 pertussis antigens 01/31/1999,,06/07/1994,01/10,1993 HPV, Quadrivalent 06/21/2009, 9,02/16/2009,12/17 Hep B, Adolescent or Pediatric 08/01/1994,1993,1993 Hep B, adult 11/30/2013 Hib (PRP-T) 11/30/1994, 4,01/10/1994,10/24 IPV 01/31/1999, 4,01/10/1994,10/24 Influenza injectable quadriv alent IIV4 with preservative 07/25/2015 Influenza injectable quadriv alent preservative free 05/17/2023,05/29/2016 Influenza, IIV3, injectable 06/11/2013 Influenza, Split (incl. carmela fied surface antigen) 05/23/2011,04/25/2010 Influenza, seasonal, injecta ble, preservative free 07/16/2024 MMR 10/07/2015,01/27/1998,11/30/1994 Meningococcal MCV4P ACYW-135 10/22/2006 OPV 01/31/1999, 4,01/10/1994,10/24 Tdap 07/25/2016,07/01/2013,08/14/2005 Varicella 10/07/2015 Family History Medical History Relation Name Comments DM2 Father DM2, thyroid dx, Mother Relation Name Status Comments Father Mother Social History Tobacco Use Types Packs/Day Years Used Date Smoking Tobacco: Some Days Cigarettes Passive Smoke Exposure: Never Smokeless Tobacco: Never Tobacco Cessation:Ready to Q uit: Not Asked; Counseling Given: Not Answered Comments:Start smoking 17 y of age ,stopped [...] Orientation Straight 07/02/2022 10 :24 AM EDT Last Filed Vital Signs Vital Sign Reading [...] Mass Index 24.15 10/01/2024 11:21 AM EST Plan of Treatment Health Maintenance Due Date Last Done Comments Alcohol/Substance Use Screening 2005 Dental Oral Exam 08/26/2009 02/23/2009 Dental Prophylaxis 06/27/2012 12/26/2011, 0 09/21/2011, 04/17/2011, Additional history exists Pneumococcal Vaccine: Pediatrics (0 to 5 Years) and At-Risk Patients (6 to 49) Years) (1 of 2 - PCV) 2012 Pap Smear 2014 Cervical Cancer Screening 2023 HPV/Cotest 2023 COVID-19 Vaccine ( - season) 2024 SDOH Screening 05/07/2024 05/07/2023 Depression Screening 05/17/2024 05/17/2023, 05/17/20 23 Dental X-Ray: Bitewings 07/17/2024 07/16/20, 10/02/2013, 09/21/2011, Additional history exists Dental X-Ray: Full Mouth 04/07/2025 04/06/2022, 06/03 Family Planning (PISQ) 10/01/2025 10/01/2024 Tobacco Screening 10/01/2025 10/01/2024 DTaP/Tdap/Td Vaccines (9 - Td or Tdap) 07/25/2026 07/25/2016, 07/01/2013, 08/14/2005, Additional history exists Lipid Panel 09/04/2028 09/04/2023 Zoster Vaccines (1 of 2) 2043 RSV Patients and Patients Aged 60 years or older (1 - 1-dose 75+ series) 2068 HIB Vaccines Completed 11/30/1994, 01/1994, 01/10/1994, Additional history exists IPV Vaccines Completed 01/31/1999, 09/1998, 06/07/1994, Additional history exists Meningococcal Vaccine Aged Out 10/22/2006 No tariq larry eligible based on patient's age to complete this topic HPV Vaccines Completed 06/21/2009, 03/02, 02/16/2009, Additional history exists Hepatitis B Vaccines Completed 11/30/2013, 08/01/1994, 1993, Additional history exists Influenza Vaccine Completed 07/16/2024, , 05/29/2016, Additional history exists HIV Screening Completed 07/23/2024, 07/04, 09/04/2023, Additional history exists Hepatitis C Screening Completed 07/23/2024 , 09/04/2023, 07/15/2023, Additional history exists Hepatitis A Vaccines Aged Out No long er eligible based on patient's age to complete this topic RSV under 20 months Aged Out No longe r eligible based on patient's age to complete this topic Rotavirus Vaccines Aged Out No longer eligible based on patient's age to complete this topic Procedures Procedure Name Priority Date/Time Associated Diagnosis Comments POCT , URINE Routine 10/01/2024 12:00 PM EST Nausea POCT URINALYSIS DIPSTICK Routine 08/31/2024 11:18 AM EST Vaginal discharge CHLAMYDIA/N. GONORRHOEAE RNA, TMA, UROGENITAL Routine 08/31/2024 11:10 AM EST Vaginal discharge BACTERIAL VAGINOSIS PANEL Routine 08/31/2024 11:10 AM EST Vaginal discharge HIV 1 RNA, QUANTITATIVE REAL TIME PCR Routine 07/23/2024 10:26 AM EST HIV 1/2 ANTIGEN/ANTIBODY, FOURTH GENERATION W/RFL Routine 07/23/2024 10:26 AM EST HEPATITIS C ANTIBODY Routine 07/23/2024 10:26 AM EST SYPHILIS SCREEN Routine 07/23/2024 10:26 AM EST COMPREHENSIVE METABOLIC PANEL Routine 07/23/2024 10:26 AM EST Pelvic pain CBC WITH AUTO DIFFERENTIAL Routine 07/23/2024 10:26 AM EST Pelvic pain HEPATITIS B SURFACE ANTIGEN, EIA Routine 07/23/2024 10:26 AM EST Pelvic pain HEPATITIS B CORE AB TOTAL Routine 07/23/2024 10:26 AM EST Pelvic pain HEPATITIS B SURFACE ANTIBODY, QUALITATIVE Routine 07/23/2024 10:26 AM EST Pelvic pain POCT , URINE Routine 07/16/2024 2:37 PM EST Pelvic pain POCT URINALYSIS DIPSTICK Routine 07/16/2024 2:35 PM EST Pelvic pain URINALYSIS, COMPLETE, WITH REFLEX TO CULTURE Routine 07/16/2024 2:25 PM EST Pelvic pain CHLAMYDIA/N. GONORRHOEAE RNA, TMA, UROGENITAL Routine 07/16/2024 2:25 PM EST BACTERIAL VAGINOSIS PANEL Routine 07/16/2024 2:25 PM EST CULTURE, URINE, ROUTINE Routine 07/16/2024 12:00 AM EST LIPID PANEL, STANDARD Routine 09/04/2023 12:18 PM EST Health care maintenance BITEWING - SINGLE RADIOGRAPHIC IMAGE Routine 07/16/2023 9:30 AM EST Dental caries PANORAMIC RADIOGRAPHIC IMAGE Routine 04/06/2022 12:00 AM EDT PROPHYLAXIS - ADULT Routine 12/26/2011 1 2:00 AM EDT PERIODIC ORAL EVALUATION - ESTABLISHED PATIENT Routine 02/23/2009 12:00 AM EDT from Last 3 Months or Most Recently Relevant to Health Maintenance Results * POCT , urine manually resulted (10/01/2024 12:00 PM EST) Only the most recent of2 resultswithin the time period is included. Preg Test, Ur Negative Negative, Indeterminate, None Detected, Invalid, Specimen unsatisfactory for evaluation, Weakly Positive QC Media Lot # [id number] Lot# Expiration Date ,026 Urine 10/01/2024 12:0 0 PM EST Anu Ramirez CNM POINT OF CARE TEST ENTER/ EDIT ORDERABLES Final Result * (ABNORMAL) POCT Urinalysis (08/31/2024 11:18 AM EST) Only the most recent of2 resultswithin the time period is included. Color, UA Yellow Clarity, UA Clear Glucose, UA Negative Bilirubin, UA Negative Ketones, UA Negative Spec Grav, UA 1.030 Blood, UA Positive(A) Negative, None Detected Comment:Trace Intact pH, UA 6.0 Protein, UA Negative Urobilinogen, UA 0.2 Leukocytes, UA Negative Negative, Rare, Trace Nitrite, UA Negative Negative, None Detected QC Media Lot # [id number] Lot# Expiration Date 312,[id number] Urine 08/31/2024 11:1 8 AM EST us Filemon Monge MD POINT OF CARE TEST ENTER/ED IT ORDERABLES Final Result * (ABNORMAL) Bacterial Vaginosis Panel (08/31/2024 11:10 AM EST) Only the most recent of2 resultswithin the time period is included. TRICHOMONAS VAGINALIS DETECTION BY PCR NOT DETECTED Not Detect [facility] BACTERIAL VAGINOSIS DETECTION BY PCR POSITIVE(A) Negative [facility] Comment:The BV organism targ ets of the Xpert Xpress MVP test can becommensal in women; Xpert Xpress MVP positive results forbacterial vaginosis should be considered in conjunction withother clinical and patient information to determine thedisease status. Organisms that are not detected by the XpertXpress MVP test have also been reported to be associatedwith BV and aerobic vaginitis.The Xpert Xpress MVP test performance has not been evaluatedin patients under the age of 14. NADIYA GROUP DETECTION BY PCR NOT DETECTED Not Detect [facility] Nadiya glab krusei PCR NOT DETECTED Not Detect [facility] Swab Vaginal structure / Unknown 08/31/2024 11:10 AM EST 08/31/2024 5:55 PM EST Filemon Monge MD LAB MICROBIOLOGY - GENERAL ORDERABLES Final Result [facility] [address] [place] [phone] * Chlamydia/N. Gonorrhoeae RNA, TMA, Urogenitial (08/31/2024 11:10 AM EST) Only the most recent of2 resultswithin the time period is included. CT PCR NOT DETECTED Not Detect. [facility] Comment:A not detected test result does not exclude the possibilityof infection because test results can be affected byimproper specimen collection, concurrent antibiotic therapy,or the number of organisms in the specimen which may bebelow the sensitivity of the test. As with many diagnostictests, results from the Xpert CT/NG assay should beinterpreted in conjunction with other laboratory andclinical data available to the clinician.Xpert CT/NG performance has not been evaluated in patientsless than 14 years of age. The assay should not be used forthe evaluationof suspected sexual abuse or for other medico-legalindications. Additional testing is recommended in anycircumstance when false positive or false negative resultscould lead to adverse medical, social or psychologicalconsequences. NG PCR NOT DETECTED Not Detect. [facility] Comment:A not detected test result does not exclude the possibilityof infection because test results can be affected byimproper specimen collection, concurrent antibiotic therapy,or the number of organisms in the specimen which may bebelow the sensitivity of the test. As with many diagnostictests, results from the Xpert CT/NG assay should beinterpreted in conjunction with other laboratory andclinical data available to the clinician.Xpert CT/NG performance has not been evaluated in patientsless than 14 years of age. The assay should not be used forthe evaluationof suspected sexual abuse or for other medico-legalindications. Additional testing is recommended in anycircumstance when false positive or false negative resultscould lead to adverse medical, social or psychologicalconsequences. Swab Vaginal structure / Unknown 08/31/2024 11:10 AM EST 08/31/2024 5:55 PM EST Narrative [facility] - 09/01/2024 5:26 AM EST Vaginal us Filemon Monge MD LAB MICROBIOLOGY - GENERAL ORDERABLES Final Result Performing Organization Address City/[facility]/ZIP Co de Phone Number [facility] [address] [place] [phone] * Syphilis Screen (07/23/2024 10:26 AM EST) Syphilis Screen Nonreactive Nonreactive [facility] 07/23/2024 10:2 6 AM EST 07/24/2024 11:14 AM EST us Eli Tejada MD LAB BLOOD ORDERAB LES Final Result Performing Organization Address City/[facility]/ZIP Co de Phone Number [facility] [address] [place] [address] [phone] * Hepatitis C Ab (07/23/2024 10:26 AM EST) Pathologist [facility] Hepatitis C Antibody Nonreactive Nonreactive [facility] Comment:Antibodies to HCV no t detected; does not exclude early acuteHCV infection. 07/23/2024 10:2 6 AM EST 07/23/2024 11:13 AM EST us Eli Tejada MD LAB BLOOD ORDERAB LES Final Result [facility] [address] [place] [phone] * (ABNORMAL) CBC auto differential (07/23/2024 10:26 AM EST) [facility] White Blood Count 8.5 4.8 - 10.8 X10*3/uL [facility] Red Blood Count 4.75 4.20 - 5.50 X10*6/uL [facility] Hemoglobin 13.9 12.0 - 16.0 g/dl [facility] Hematocrit 41.2 37.0 - 47.0 % [facility] Mean Corpuscular Volume 86.7 80.0 - 98.0 fL [facility] Mean Corpuscular Hemoglobin 29.3 27.0 - 33.0 pg [facility] Mean Corpuscular HGB Conc 33.7 31.0 - 35.0 g/dl [facility] Red Cell Distribution Width 15.2 11.0 - 16.0 % [facility] Platelet Count 161 160 - 400 X10*3/uL [facility] Mean Platelet Volume 12.9(H) 9.4 - 12.3 fL [facility] Neutrophils Percent Auto 65.9 45 - 73 % [facility] Imm Gran Pct Auto 0.4 0.0 - 0.4 % [facility] Lymphocytes Percent Auto 27.4 20 - 40 % [facility] Monocytes Percent Auto 5.1 2 - 11 % [facility] Eosinophils Percent Auto 0.7 0 - 4 % [facility] Basophils Percent Auto 0.5 0 - 2 % [facility] NRBC Pct Auto 0.0 0.0 - 0.2 /100WBC [facility] Neutrophils Absolute Auto 5.6 2.0 - 8.3 x10*3/uL [facility] Imm Gran Abs Auto 0.03 0.00 - 0.03 X10*3/uL [facility] Lymphocytes Absolute Auto 2.3 1.2 - 4.9 X10*3/uL [facility] Monocytes Absolute Auto 0.4 0.1 - 1.2 X10*3/uL [facility] Eosinophils Absolute Auto 0.1 0.0 - 0.4 X10*3/uL [facility] Basophils Absolute Auto 0.0 0.0 - 0.2 X10*3/uL [facility] NRBC Abs Auto 0.000 0.0 - 0.012 X10*3/uL [facility] Blood Venous blood specimen / Unknown 07/23/2024 10:26 AM EST 07/23/2024 11:13 AM EST us Eli Tejada MD LAB BLOOD ORDERAB LES Final Result Performing Organization Address City/[facility]/ZIP Co de Phone Number [facility] [address] [place] [phone] * Hepatitis B surface antigen, EIA (07/23/2024 10:26 AM EST) Hepatitis B Surface Ag Negative Negative [facility] Blood Venous blood specimen / Unknown 07/23/2024 10:26 AM EST 07/23/2024 11:13 AM EST Eli Tejada MD LAB BLOOD ORDERAB LES Final Result Performing Organization Address City/[facility]/ZIP Co de Phone Number [facility] [address] [place] [phone] [phone] * Hepatitis B Core Antibody, Total (07/23/2024 10:26 AM EST) Pathologist [facility] Hepatitis B Core Antibody Nonreactive Nonreactive [facility] Blood Venous blood specimen / Unknown 07/23/2024 10:26 AM EST 07/23/2024 11:13 AM EST Eli Tejada MD LAB BLOOD ORDERAB LES Final Result Performing Organization Address City/[facility]/ZIP Co de Phone Number [facility] [address] [place] [phone] * HIV-1 RNA, Quantitative, Real-Time PCR (07/23/2024 10:26 AM EST) [facility] HIV RNA PCR Qn Copies NOT DETECTED NOT DETECTED copies/mL [facility] HIV RNA PCR Qn Log Copies NOT DETECTED NOT DETECTED [facility] Comment:Result Units: Log co pies/mLThis test was performed using Real-Time Polymerase ChainReaction.Reportable Range: 20 copies/mL to 10,000,000 copies/mL(1.30 log copies/mL to 7.00 log copies/mL).THIS TEST WAS PERFORMED AT:[address] [place] [phone] MORRIS MD 07/23/2024 10:2 6 AM EST 07/23/2024 11:13 AM EST us Eli Tejada MD LAB BLOOD ORDERAB LES Final Result Performing Organization Address City/[facility]/ZIP Co de Phone Number [facility] [address] [place] [phone] * HIV-1/2 Antigen and Antibodies, Fourth Generation, with Reflexes (07/23/2024 10:26 AM EST) Pathologist [facility] HIV AB/AG Nonreactive Nonreactive [facility] Comment:HIV-1 p24 Ag and/or HIV-1/HIV-2 Ab not detected.A test result that is nonreactive does not exclude thepossibility of exposure to or infection with HIV-1 and/orHIV-2. Nonreactive results in this assay for individualswith prior exposure to HIV-1 and/or HIV-2 may be due toantigen and antibody levels that are below the limit ofdetection of this assay.The [employer] HIV Ag/Ab Combo assay result andsupplemental assay results should be interpreted inconjunction with the patient's clinical presentation,history and other laboratory results. If the results areinconsistent with clinical evidence, additional testing issuggested to confirm the result. 07/23/2024 10:2 6 AM EST 07/23/2024 11:13 AM EST Eli Tejada MD LAB BLOOD ORDERAB LES Final Result Performing Organization Address [facility]/ZIP Co de Phone Number [facility] [address] [place] [phone] * Hepatitis B Surface Antibody, Qualitative (07/23/2024 10:26 AM EST) Pathologist [facility] ~Hepatitis B Surface Antibody NONREACTIVE Nonreactive [facility] Comment:Nonreactive: < 8.00 mIU/mL Blood Venous blood specimen / Unknown 07/23/2024 10:26 AM EST 07/23/2024 11:13 AM EST Eli Tejada MD LAB BLOOD ORDERAB LES Final Result Performing Organization Address [facility]/ZIP Co de Phone Number [facility] [address] [place] [phone] * (ABNORMAL) Comprehensive Metabolic Panel (07/23/2024 10:26 AM EST) Pathologist [facility] Sodium 141 135 - 145 mmol/L [facility] Potassium 4.0 3.3 - 5.1 mmol/L [facility] Chloride 111(H) 96 - 108 mmol/L [facility] Carbon Dioxide 25 22 - 29 mmol/L [facility] Anion Gap 9(L) 12 - 20 [facility] Urea Nitrogen (BUN) 9 9 - 16 mg/dL [facility] Creatinine, Serum 0.79 0.5 - 1.4 mg/dL [facility] Estimated Glomerular Filt Rate >60 [facility] Comment:Chronic Kidney Disea se: Estimated GFR < 60 mL/min/1.58h2Kudlzk Kidney Disease: Estimated GFR < 15 mL/min/1.73m2 Glucose 89 60 - 115 mg/dL [facility] Calcium 9.2 8.4 - 10.2 mg/dL [facility] Bilirubin, Total 0.2 0.0 - 1.0 mg/dL [facility] Aspartate Amino Transferase 24 5 - 31 U/L [facility] Alanine Aminotransferase 18 0 - 31 U/L [facility] Total Protein 6.5 6.5 - 8.0 g/dL [facility] Albumin Level 4.0 3.5 - 5.0 g/dL [facility] Alkaline Phosphatase 66 39 - 117 U/L [facility] Blood Venous blood specimen / Unknown 07/23/2024 10:26 AM EST 07/23/2024 11:28 AM EST us Eli Tejada MD LAB BLOOD ORDERAB LES Final Result [facility] [address] [place] [phone] * (ABNORMAL) Urinalysis, Complete, with Reflex to Culture (07/16/2024 2:25 PM EST) Color Urine Yellow [facility] Appearance Urine Clear [facility] PH 6.5 5.0 - 9.0 [facility] Glucose Urine UA Negative Negative mg/dL [facility] Urine Blood Negative Negative [facility] Specific [place] - Urine 1.025 1.005 - 1.025 [facility] Urine Protein Negative Neg-Trace mg/dL [facility] Urine Ketones Negative Negative mg/dL [facility] Nitrite Urine Negative Negative [facility] Leukocyte Esterase Urine Trace(A) Negative [facility] RBC Urine 0-2 0 - 2 /HPF [facility] Urine WBC 6-10(A) 0 - 5 /HPF [facility] Urine Squamous Epithelial Cell 0-2 0 - 2 /HPF [facility] Urine Bacteria None Seen None Seen [facility] Hyaline Casts, Urine 0-2 0 - 2 /LPF [facility] Urine 07/16/2024 2:25 PM EST 07/16/2024 4:46 PM EST Narrative [facility] - 07/16/2024 5:02 PM EST Urine, Clean Catch Eli Tejada MD LAB URINE ORDERAB LES Final Result Performing Organization Address [facility]/ZIP Co de Phone Number [facility] [address] [place] [phone] * Culture, Urine, Routine (07/16/2024 12:00 AM EST) Urine Urine specimen obtained by clean catch procedure / Unknown 07/16/2024 07/16/2024 Comment:[facility] Narrative [facility] - 07/18/2024 8:37 AM EST Urine Culture Report Result Urine Culture 10,000 to 50,000 cfu/ml Urine Culture Mixed bacterial ricardo characteristic of Urine Culture urogenital contamination. Specimen Source: Urine clean catch us Eli Tejada MD LAB MICROBIOLOGY - GENERAL ORDERABLES Final Result Performing Organization Address City/[facility]/ZIP Co de Phone Number [facility] [address] [place] [phone] * (ABNORMAL) Lipid Panel, Standard (09/04/2023 12:18 PM EST) Triglycerides 117 <150 mg/dL [facility] Comment:Desirable Triglyceri de: less than 150 mg/dLBorderline High Triglyceride 150-199 mg/dLHigh Triglyceride: 200-499 mg/dLVery High Triglyceride: greater than or equal to 5OO mg/dL Cholesterol 186 <200 mg/dL [facility] Comment:Desirable Cholestero l: less than 200 mg/dLBorderline High Cholesterol: 200-239 mg/dLHigh Cholesterol: greater than 239 mg/dL LDL Cholesterol Calculated 122(H) <100 mg/dL [facility] Comment:Desirable LDL: less than 100 mg/dLNear Optimal/Above Optimal LDL: 110- 129 mg/dLBorderline High LDL: 130-159 mg/dLHigh LDL: 160-189 mg/dLVery High LDL: greater than or equal to 190 mg/dL HDL Cholesterol 41 >40 mg/dL [facility] Comment:Desirable HDL: great er than 40 mg/dL Note: This HDL assay may give artificially low results in patients with liver disease. 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
--- OUTSIDE RECORDS SUMMARY | 2024-10-01 19:28 | XMS_ITS | Encounter Summary ---
Author Organization [employer] Address [address] [place] [address] Care Team Providers Care Event Marketing Representative Name Role Phone Eli Kenny MD Primary Care Pro vider Reason for Visit * Reason Onset Date Comments Call Back Request 09/22/2024 Encounter Details Date Type Department Care Team ([facility] Contact Info) Description 09/22/2024 Telephone [facility] MEDICINE [address] [place] [address] Eli Kenny MD [address] [place] [address] Call Back Request Social History Tobacco Use Types Packs/Day Years [...] encounter Miscellaneous Notes * Telephone Encounter - Belinda Boateng RN - 09/23/2024 10:46 AM EST Telephone call returned to pt. Pt states she would like to discuss the risks, benefits, and overview of the procedure to inform any possible decision. Advised pt that per chart, she is overdue for pap. Pt open to scheduling appt with LAURA Ramirez for both reasons, booked for 09/21/24. Pt in agreement with plan, to call clinic PRN. * Telephone Encounter - Sai Hannah - 09/22/2024 10:48 AM EST Tc from pt requesting a callback as she's requesting a referral to Tubal ligation reversal , pt states she will like info on how's the process and what's the best recommendation from PCP. [phone] documented in this encounter Plan of Treatment Not on file documented as of this encounter Visit Diagnoses Not on filedocumented in this encounter Additional Health Concerns Assessment Noted Time PHQ-9 Depression Total Score: 3 05/17/20 23 1:39 PM EDT documented as of this encounter Care Teams Event Marketing Representative Relationship Specialty Start Date End Date Eli Kenny MD [address] [place] [address] PCP - General Internal Medicine 02/06/23 documented as of this encounter
--- OUTSIDE RECORDS SUMMARY | 2024-10-01 19:29 | XMS_ITS | Encounter Summary ---
Author Organization [facility] Address [address] [place] [address] Phone Care Team Providers Care Teacher Asst Name Role Phone Ericka Cheek MD Primary Care Provider [phone] Encounter Details Date Type Department Care Team (Late st Contact Info) Description 02/21/2011 Documentation EM Family Medicine [address] [place] [address] Family Medicine, Physician [address] [place], [place] [phone] Social History Tobacco Use Types Packs/Day Years [...] on filedocumented in this encounter Care Teams Teacher Asst Relationship Specialty Start Date End Date Ericka Cheek MD [address] [place] [address] [place] [address] PCP - General 04/12/17 02/28/23 documented as of this encounter
--- OUTSIDE RECORDS SUMMARY | 2024-10-01 19:29 | XMS_ITS | Encounter Summary ---
Author Organization [facility] Address [address] [place] [address] Phone Care Team Providers Care Clerk Cashier Name Role Phone Ericka Cheek MD Primary Care Provider [phone] Encounter Details Date Type Department Care Team (Late st Contact Info) Description 05/28/2011 Documentation EM Family Medicine [address] [place] [address] Family Medicine, Physician [address] [place], [place] [phone] Social History Tobacco Use Types Packs/Day Years [...] on filedocumented in this encounter Care Teams Clerk Cashier Relationship Specialty Start Date End Date Ericka Cheek MD [address] [place] [address] [place] [address] PCP - General 04/12/17 02/28/23 documented as of this encounter
--- OUTSIDE RECORDS SUMMARY | 2024-10-01 19:29 | XMS_ITS | Encounter Summary ---
Author Organization [facility] Address [address] [place] [address] Phone Care Team Providers Care Truck Driver Flatbed Name Role Phone Ericka Cheek MD Primary Care Provider [phone] Encounter Details Date Type Department Care Team (Late st Contact Info) Description 12/16/2013 Documentation EM Family Medicine [address] [place] [address] Family Medicine, Physician [address] [place], [place] [phone] Social History Tobacco Use Types Packs/Day Years [...] on filedocumented in this encounter Care Teams Truck Driver Flatbed Relationship Specialty Start Date End Date Ericka Cheek MD [address] [place] [address] [place] [address] PCP - General 04/12/17 02/28/23 documented as of this encounter
--- OUTSIDE RECORDS SUMMARY | 2024-10-01 19:29 | XMS_ITS | Encounter Summary ---
Author Organization [facility] Address [address] [place] [address] Phone Care Team Providers Care Refueling Ramp Attendant Name Role Phone Ericka Cheek MD Primary Care Provider [phone] Encounter Details Date Type Department Care Team (Late st Contact Info) Description 08/20/2011 Documentation EM Family Medicine [address] [place] [address] Family Medicine, Physician [address] [place], [place] [phone] Social History Tobacco Use Types Packs/Day Years [...] on filedocumented in this encounter Care Teams Refueling Ramp Attendant Relationship Specialty Start Date End Date Ericka Cheek MD [address] [place] [address] [place] [address] PCP - General 04/12/17 02/28/23 documented as of this encounter
--- OUTSIDE RECORDS SUMMARY | 2024-10-01 19:29 | XMS_ITS | Encounter Summary ---
Author Organization [facility] Address [address] [place] [address] Phone Care Team Providers Care It Risk And Assurance Manager Name Role Phone Ericka Cheek MD Primary Care Provider [phone] Encounter Details Date Type Department Care Team (Late st Contact Info) Description 05/24/2011 Documentation EM Family Medicine [address] [place] [address] Family Medicine, Physician [address] [place], [place] [phone] Social History Tobacco Use Types Packs/Day Years [...] on filedocumented in this encounter Care Teams It Risk And Assurance Manager Relationship Specialty Start Date End Date Ericka Cheek MD [address] [place] [address] [place] [address] PCP - General 04/12/17 02/28/23 documented as of this encounter
--- OUTSIDE RECORDS SUMMARY | 2024-10-01 19:29 | XMS_ITS | Clinical Summary ---
Author Organization [facility] Address [address] [place] [address] Phone Care Team Providers Care Product Builder Name Role Phone Unavailable Primary Care Provider Unavailabl e Immunizations Name Administration Dates Next Due DTP 03/01/1995, 4,01/10/1994, 994 DTaP 5 01/31/1999 HPV, Quadrivalent 06/21/2009,02/16/2009,12/18/19 08 Hep B, ped/adol 08/01/1994,1993,1993 Hib (PRP-T) 11/30/1994, 4,01/10/1994, 994 IPV 01/31/1999, 4,01/10/1994, 99 Influenza Split 05/23/2011,04/25/2010 MMR 01/27/1998,11/30/1994 Meningococcal Conj (Menactra) MCV4P 10/22/2006 Tdap 08/14/2005 Social History Tobacco Use Types Packs/Day Years Used Date Smoking Tobacco: Never Assessed Comments Unknown Sex and Gender Information Value Date Recorded Sex Assigned at Not on file Legal Sex Female 4:37 PM EDT Gender Identity Not on file Sexual Orientation Not on file Last Filed Vital Signs Vital Sign Reading Time Taken Comments Blood Pressure 100/74 05/23/2011 12:00 AM EDT Pulse - - Temperature - - Respiratory Rate - - Oxygen Saturation - - Inhaled Oxygen Concentration - - Weight 55.1 kg (121 lb 8 oz) 05/23/2011 12:00 AM EDT Height 149.9 cm (4' 11 ) 04/25/2010 12:00 AM EDT Body Mass Index - - Plan of Treatment Health Maintenance Due Date Last Done Comments Varicella Vaccines (1 of 2 - 13+ 2-dose series) 2006 DTaP,Tdap,and Td Vaccines (7 - Td or Tdap) 08/14/2015 08/14/2005, 01/31/1999, 03/01/1995, Additional history exists Influenza Vaccines (#1) 2024 05/23/2011, 04/25 COVID-19 Vaccine ( season) 2024 Hepatitis B Vaccines Completed 08/01/1994, 1993, 1993 HIB Vaccines Completed 11/30/1994, 01/1994, 01/10/1994, Additional history exists MMR Vaccines Completed 01/27/1998, 11/30/1994 IPV Vaccines Completed 01/31/1999, 01/1994, 01/10/1994, Additional history exists Meningococcal Vaccine Aged Out 10/22/2006 No tariq larry eligible based on patient's age to complete this topic HPV Vaccines Completed 06/21/2009, 01/31, 12/18/2007 Hepatitis A Vaccines Aged Out No long er eligible based on patient's age to complete this topic Men B Vaccine Aged Out No longer elig ible based on patient's age to complete this topic Pneumococcal Vaccine Aged Out No long er eligible based on patient's age to complete this topic Procedures * Due to [place] [employer] law, this organization might not be sharing sensitive test results. Procedure Name Priority Date/Time Associated Diagnosis Comments CHLAMYDIA AND GONORRHEA, AMPLIFIED Routine 05/24/2011 1:14 PM EDT from Last 3 Months or Most Recently Relevant to Health Maintenance Results * Due to [place] [employer] law, this organization might not be sharing sensitive test results. * Chlamydia and Gonorrhoea, Amplified (05/24/2011 1:14 PM EDT) Pathologist [facility] URINE GC AMP PROBE NEGATIVE [facility] Comment: NO NEISSERIA GONORRHOEAE RNA DETECTED IN THIS PATIENT'S SAMPLE. ? (REFERENCE RANGE/NORMAL VALUE: NOT DETECTED) ? NOTE: THIS TEST USES [employer]OR[employer] PROFESSOR MEDIATED AMPLIFICATION METHOD TO DETECT rRNA FROM C.TRACHOMATIS AND N.GONORRHOEAE. A NEGATIVE RESULT DOES NOT PRECLUDE INFECTION WITH C.TRACHOMATIS OR N.GONORRHOEAE BECAUSE RESULTS ARE DEPENDENT ON ADEQUATE SPECIMEN COLLECTION, ABSENCE OF INHIBITORS, AND SUFFICIENT rRNA TO BE DETECTED. THE APTIMA COMBO2 ASSAY IS NOT INTENDED FOR THE EVALUATION OF SUSPECTED SEXUAL ABUSE OR FOR OTHER MEDICO LEGAL INDICATIONS. IS TRUE FOR ALL NON CULTURE METHODS, A POSITIVE SPECIMEN OBTAINED FROM A PATIENT AFTER THERAPEUTIC TREATMENT CANNOT BE INTERPRETED INDICATING THE PRESENCE OF VIABLE C.TRACHOMATIS OR N.GONORRHOEAE. THERAPEUTIC FAILURE OR SUCCESS CANNOT BE DETERMINED WITH THE APTIMA COMBO2 ASSAY SINCE NUCLEIC ACID MAY PERSIST FOLLOWING APPROPRIATE ANTIMICROBIAL THERAPY. A NEGATIVE URINE RESULT FOR A PATIENT WHO IS CLINICALLY SUSPECTED OF HAVING A CHLAMYDIAL OR GONOCOCCAL INFECTION DOES NOT RULE OUT THE PRESENCE OF C.TRACHOMATIS OR N.GONORRHOEAE IN THE UROGENITAL TRACT. TESTING OF AN ENDOCERVICAL(FEMALE) OR URETHRAL(MALE) SPECIMEN IS RECOMMENDED IF THERE IS HIGH CLINICAL SUSPICION OF INFECTION. PRESERVCYT LIQUID PAP AND URINE SAMPLING ARE NOT DESIGNED TO REPLACE CERVICAL EXAMS AND ENDOCERVICAL SAMPLES FOR DIAGNOSIS OF FEMALE UROGENITAL INFECTIONS. PATIENTS MAY HAVE CERVICITIS, URETHRITIS, URINARY TRACT INFECTIONS, OR VAGINAL INFECTIONS DUE TO OTHER CAUSES OR CONCURRENT INFECTIONS WITH OTHER AGENTS. URINE CHLAMYDIA AMP PROBE NEGATIVE [facility] Comment: NO CHLAMYDIA TRACHOMATIS RNA DETECTED IN THIS PATIENT'S SAMPLE. ? (REFERENCE RANGE/NORMAL VALUE: NOT DETECTED) 05/24/2011 1:14 PM EDT Narrative [facility] - 05/24/2011 1:14 PM EDT URINE CHLAMYDIA GC AMP PROBE us Heather Maynard NP LAB MICROBIOLOGY - GENERAL ORD ERABLES Final Result [facility] [address] [place] [address], [place] from Last 3 Months or Most Recently Relevant to Health Maintenance
--- OUTSIDE RECORDS SUMMARY | 2024-10-01 19:29 | XMS_ITS | Encounter Summary ---
Author Organization [facility] Address [address] [place] [address] Phone Care Team Providers Care Transformer Assembler Name Role Phone Ericka Cheek MD Primary Care Provider [phone] Encounter Details Date Type Department Care Team (Late st Contact Info) Description 05/28/2011 Documentation EM Family Medicine [address] [place] [address] Family Medicine, Physician [address] [place], [place] [phone] Social History Tobacco Use Types Packs/Day Years [...] on filedocumented in this encounter Care Teams Transformer Assembler Relationship Specialty Start Date End Date Ericka Cheek MD [address] [place] [address] [place] [address] PCP - General 04/12/17 02/28/23 documented as of this encounter
--- OUTSIDE RECORDS SUMMARY | 2024-10-01 19:29 | XMS_ITS | Encounter Summary ---
Author Organization [facility] Address [address] [place] [address] Phone Care Team Providers Care Eyeglass Cutter Name Role Phone Ericka Cheek MD Primary Care Provider [phone] Encounter Details Date Type Department Care Team (Late st Contact Info) Description 02/21/2011 Documentation EM Family Medicine [address] [place] [address] Family Medicine, Physician [address] [place], [place] [phone] Social History Tobacco Use Types Packs/Day Years [...] on filedocumented in this encounter Care Teams Eyeglass Cutter Relationship Specialty Start Date End Date Ericka Cheek MD [address] [place] [address] [place] [address] PCP - General 04/12/17 02/28/23 documented as of this encounter
--- OUTSIDE RECORDS SUMMARY | 2024-10-01 19:29 | XMS_ITS | Encounter Summary ---
Author Organization [facility] Address [address] [place] [address] Phone Care Team Providers Care High Reach Operator Name Role Phone Ericka Cheek MD Primary Care Provider [phone] Encounter Details Date Type Department Care Team (Late st Contact Info) Description 04/18/2017 Conversion Encounter [facility] [address] [place] [address] Social History Tobacco Use Types Packs/Day Years [...] on filedocumented in this encounter Care Teams High Reach Operator Relationship Specialty Start Date End Date Ericka Cheek MD [address] [place] [address] PCP - General 04/12/17 02/28/23 documented as of this encounter
--- OUTSIDE RECORDS SUMMARY | 2024-10-01 19:29 | XMS_ITS | Encounter Summary ---
Author Organization [facility] Address [address] [place] [address] Phone Care Team Providers Care Bullard Operator Name Role Phone Ericka Cheek MD Primary Care Provider [phone] Encounter Details Date Type Department Care Team (Late st Contact Info) Description 02/21/2011 Documentation EM Family Medicine [address] [place] [address] Family Medicine, Physician [address] [place], [place] [phone] Social History Tobacco Use Types Packs/Day Years [...] on filedocumented in this encounter Care Teams Bullard Operator Relationship Specialty Start Date End Date Ericka Cheek MD [address] [place] [address] [place] [address] PCP - General 04/12/17 02/28/23 documented as of this encounter
--- OUTSIDE RECORDS SUMMARY | 2024-10-01 19:29 | XMS_ITS | Encounter Summary ---
Author Organization [employer] Address [address] [place] [address] Care Team Providers Care Official Court Reporter Name Role Phone Eli Kenny MD Primary Care Pro vider Encounter Details Date Type Department Care Team (Late st Contact Info) Description 02/15/[address] [facility] ADULT DENTAL [address] [place] [address] Zaki Dumont DMD [address] [place] [address] Social History Tobacco Use Types Packs/Day Years Used Date Smoking Tobacco: Never Smokeless Tobacco: Never Alcohol Use Standard Drinks/Week Comments Never 0 (1 standard drink = 0.6 oz pur e alcohol) Comments Unknown Sex and Gender Information Value [...] on filedocumented in this encounter Care Teams Official Court Reporter Relationship Specialty Start Date End Date Eli Kenny MD [address] [place] [address] PCP - General Internal Medicine 02/06/23 documented as of this encounter
--- OUTSIDE RECORDS SUMMARY | 2024-10-01 19:29 | XMS_ITS | Encounter Summary ---
Author Organization [facility] Address [address] [place] [address] Phone Care Team Providers Care Director Law Enforcement Name Role Phone Ericka Cheek MD Primary Care Provider [phone] Encounter Details Date Type Department Care Team (Late st Contact Info) Description 12/06/2010 Documentation EM Family Medicine [address] [place] [address] Family Medicine, Physician [address] [place], [place] [phone] Social History Tobacco Use Types Packs/Day Years [...] on filedocumented in this encounter Care Teams Director Law Enforcement Relationship Specialty Start Date End Date Ericka Cheek MD [address] [place] [address] [place] [address] PCP - General 04/12/17 02/28/23 documented as of this encounter
--- OUTSIDE RECORDS SUMMARY | 2024-10-01 19:29 | XMS_ITS | Encounter Summary ---
Author Organization [employer] Address [address] [place] [address] Care Team Providers Care Outside Salesperson Name Role Phone Eli Kenny MD Primary Care Pro vider Reason for Visit * Reason Comments Med Refill Encounter Details Date Type Department Care Team ([facility] st Contact Info) Description 03/22/2023 Refill [facility] MEDICINE [address] [place] [address] Edel Montenegro DO [address] [place], [place] [phone] Social History Tobacco Use Types Packs/Day Years Used Date Smoking Tobacco: Never Passive Smoke Exposure: Never Smokeless Tobacco: Never Alcohol Use Standard Drinks/Week Comments Never 0 (1 standard drink = 0.6 oz pur e alcohol) Comments Unknown Sex and Gender Information Value Date Recorded Sex Assigned at Female 07/02/2022 10:24 AM EDT Legal Sex Female 10:24 AM EDT Gender Identity Female 07/02/2022 10:24 AM EDT Sexual Orientation Straight 07/02/2022 10 :24 AM EDT COVID-19 Exposure Response Date Recorded In the last 10 days, have yo u been in contact with someone who was confirmed or suspected to have Coronavirus/COVID-19? No / Unsure 02/22/2023 3:43 PM EDT documented as of this encounter Plan of Treatment Not on file documented as of this encounter Visit Diagnoses Not on filedocumented in this encounter Care Teams Outside Salesperson Relationship Specialty Start Date End Date Eli Kenny MD [address] [place] [address] PCP - General Internal Medicine 02/06/23 documented as of this encounter
--- OUTSIDE RECORDS SUMMARY | 2024-10-01 19:29 | XMS_ITS | Encounter Summary ---
Author Organization [facility] Address [address] [place] [address] Phone Care Team Providers Care Book Coverer Name Role Phone Ericka Cheek MD Primary Care Provider [phone] Encounter Details Date Type Department Care Team (Late st Contact Info) Description 05/24/2011 Documentation EM Family Medicine [address] [place] [address] Family Medicine, Physician [address] [place], [place] [phone] Social History Tobacco Use Types Packs/Day Years [...] on filedocumented in this encounter Care Teams Book Coverer Relationship Specialty Start Date End Date Ericka Cheek MD [address] [place] [address] [place] [address] PCP - General 04/12/17 02/28/23 documented as of this encounter
[2024-10-02 10:43] LABS: Bacterial Vaginosis PCR POSITIVE (Negative); Candida Group PCR NOT DETECTED (Not Detect); Candida glab krusei PCR NOT DETECTED (Not Detect); Trichomonas vaginalis PCR NOT DETECTED (Not Detect)
[2024-10-12 10:20] LABS: HPV Genotype 16 Negative (Negative); HPV Genotype 18 Negative (Negative); HPV High Risk Negative (Negative)
== END 2024-10-01 16:00 | disposition home or self-care (01) ==
LOC: HO.HHCLNP 15:59
PROVIDERS: Visit Provider Advanced Practice Midwife
DX: N89.8 Other specified noninflammatory disorders of vagina (principal); Z12.4 Encounter for screening for malignant neoplasm of cervix
CPT/HCPCS: 81515; 87626; 88175

== ENCOUNTER 2024-10-30 13:52 | Outpatient (REF) | payer MEDICAID, SELFPAY ==
[2024-10-30 15:35] LABS: Bacterial Vaginosis PCR POSITIVE (Negative); Candida Group PCR NOT DETECTED (Not Detect); Candida glab krusei PCR NOT DETECTED (Not Detect); Trichomonas vaginalis PCR NOT DETECTED (Not Detect)
--- OUTSIDE RECORDS SUMMARY | 2024-10-30 16:03 | XMS_ITS | Encounter Summary ---
Author Organization [employer] Address [address] [place] [address] Care Team Providers Care Hand Filer Balance Wheel Name Role Phone Eli Kenny MD Primary Care Pro vider Encounter Details Date Type Department Care Team ([facility] st Contact Info) Description 10/01/2024 Orders Only [facility] MEDICINE [address] [place], [place] [phone] Anu Ramirez CN [address] [place], [place] [phone] Social History Tobacco Use Types Packs/Day Years [...] as of this encounter Plan of Treatment Upcoming Encounters Date Type Department Care Team (Late st Contact Info) Description 12/02/2024 9:00 AM EDT Office Visit [facility] MEDICINE [address] [place] [address] Eli Kenny MD [address] [place], [place] [phone] documented as of this encounter Procedures Procedure Name Priority Date/Time Associated Diagnosis Comments HPV DNA, LOW/HIGH RISK Routine 10/01/2024 11:36 AM EST documented in this encounter Results * HPV DNA, Low/High Risk (10/01/2024 11:36 AM EST) HPV High Risk Negative Negative [facility] HPV Genotype 16 Negative Negative [facility] HPV Genotype 18 Negative Negative [facility] Comment:HPV testing performe d at [facility] (CLIA#[id number]), [address] [place] [address].Testing for HPV was performed using the Annette FRANKY 6800system. The presence of HPV in the female genital tract isassociated with a number of diseases, including cervicalcarcinoma. The HPV DNA high risk pool tests for HPV 31, 33,35, 39, 45, 51, 52, 56, 58, 59, 66 and 68. The testing forHPV 16 and 18 genotypes has also been performed. A positiveresult indicates detection of nucleic acid sequences fromone or more subtypes, whereas a negative result indicatessuch sequences were not detected. 10/01/2024 11:3 6 AM EST 10/02/2024 7:24 AM EST us Anu Ramirez CNBob LAB BLOOD ORDERABLES Shruti sullivan Result [facility] [address] [place] [address] [phone] documented in this encounter Visit Diagnoses Not on filedocumented in this encounter Additional Health Concerns Assessment Noted Time PHQ-9 Depression Total Score: 3 05/17/20 23 1:39 PM EDT documented as of this encounter Care Teams Hand Filer Balance Wheel Relationship Specialty Start Date End Date Eli Kenny MD [address] [place] [address] PCP - General Internal Medicine 02/06/23 documented as of this encounter
--- OUTSIDE RECORDS SUMMARY | 2024-10-30 16:03 | XMS_ITS | Encounter Summary ---
Author Organization [employer] Address [address] [facility] 7t [place] [address] Care Team Providers Care Acid Cutter Name Role Phone Eli Kenny MD Primary [...] Description 12/02/2024 9:00 AM EDT Office Visit [facility] MEDICINE [address] [place] [address] Eli Kenny MD [address] [place] [phone] documented as of this encounter Visit Diagnoses Not on filedocumented in this encounter Additional Health Concerns Assessment Noted Time PHQ-9 Depression Total Score: 3 05/17/20 23 1:39 PM EDT documented as of this encounter Care Teams Acid Cutter Relationship Specialty Start Date End Date Eli Kenny MD [address] [place] [address] PCP - General Internal Medicine 02/06/23 documented as of this encounter
--- OUTSIDE RECORDS SUMMARY | 2024-10-30 16:03 | XMS_ITS | Encounter Summary ---
Author Organization [employer] Address [address] [facility] 7t [place] [address] Care Team Providers Care Audio/Visual Manager Name Role Phone Eli Kenny MD Primary Care Pro vider Encounter Details Date Type Department Care Team (Latest Contact Info) Description 10/30/2024 Travel Social History Tobacco Use Types Packs/Day [...] Description 12/02/2024 9:00 AM EDT Office Visit [facility] [address] [place] [phone] Eli Kenny MD [address] [place] [address] [phone] documented as of this encounter Visit Diagnoses Not on filedocumented in this encounter Additional Health Concerns Assessment Noted Time PHQ-9 Depression Total Score: 3 05/17/20 23 1:39 PM EDT documented as of this encounter Care Teams Audio/Visual Manager Relationship Specialty Start Date End Date Eli Kenny MD [address] [place] [phone] PCP - General Internal Medicine 02/06/23 documented as of this encounter
--- OUTSIDE RECORDS SUMMARY | 2024-10-30 16:03 | XMS_ITS | Encounter Summary ---
Author Organization [employer] Address [address] [place] [address] Care Team Providers Care Recreation Supervisor Name Role Phone Eli Kenny MD Primary Care Pro vider Reason for Referral * Consultation (Routine) - Closed Specialty Diagnoses / Procedures Referred By Danyel coronado Referred To Contact Obstetrics Diagnoses Procreative management Anu Madrigal CNM [address] [place] [address] Phone: tel: fax: Reproductive Medicine[address] Phone: tel: fax: Referral ID Status Reason Start Date Expiration Date V isits Requested Visits Authorized [id number] Closed Specialty Services Required 10/01/2024 10/01/2025 1 1 Encounter Details Date Type Department Care Team (Latest Contact Info) Description 10/01/2024 11:00 AM EST Procedure Visit [facility] [address], [place] [phone] Anu Madrigal CNM [address], [place] [phone] Cervical cancer screening (Primary Dx); Procreative management; [...] in this encounter Progress Notes * Anu Madrigal CNM - 10/01/2024 11:00 AM EST Subjective [...] Hep C, syphilis Gonorrhea/Chlamydianegative with CRS 09/28/2024. Mcc AMAB partner, no safety concerns. Cadence is in group home with children, in process of getting more permanent housing. Feels safe. Notes some dryness of bilateral breast skin since being in group home. Using moisturizer which helps. LMP around 09/06. [...] kg/m?? Physical Exam Exam conducted with a bike assembler present (Anu Madrigal CNM). Constitutional: Appearance: Normal appearance. Chest: Breasts: [...] today. Continue moisturizer. documented in this encounter Miscellaneous Notes * Result Encounter Note - Anu Madrigal CNM - 10/01/2024 11:00 AM EST Please let Cadence know her pap was normal, HPV neg. This is good. It doesn't look like she got my message about bacterial vaginosis. Could you please confirm? Thanks! documented in this encounter Plan of Treatment Upcoming Encounters Date Type Department Care Team (Late st Contact Info) Description 12/02/2024 9:00 AM EDT Office Visit [facility] [address], [place] [phone] Eli Kenny MD [address] [place], [place] [phone] Scheduled Referrals Name Type Priority Associated Diagnoses Order Schedule Referral to Infertility Outpatient Referral Routine Procreative management Expected: 10/01/2024 (Approximate), Expires: 10/01/2025 documented as of this encounter Procedures Procedure Name Priority Date/Time Associated Diagnosis Comments BACTERIAL VAGINOSIS PANEL Routine 10/01/2024 12:01 PM EST Vaginal discharge POCT , URINE Routine 10/01/2024 12:00 PM EST Nausea PAP SMEAR Routine 10/01/2024 11:36 AM EST Cervical cancer screening documented in this encounter Results * (ABNORMAL) Bacterial Vaginosis Panel (10/01/2024 12:01 PM EST) TRICHOMONAS VAGINALIS DETECTION BY PCR NOT DETECTED Not Detect [facility] BACTERIAL VAGINOSIS DETECTION BY PCR POSITIVE(A) Negative [facility] Comment:The BV organism targ [...] DETECTION BY PCR NOT DETECTED Not Detect [facility] Nadiya glab krusei PCR NOT DETECTED Not Detect [facility] Swab Vaginal structure / Unknown 10/01/2024 12:01 PM EST 10/01/2024 4:01 PM EST Anu Madrigal CNM LAB MICROBIOLOGY - GENERA L ORDERABLES Final Result [facility] [address] [place] [address] [phone] * POCT , urine manually resulted (10/01/2024 12:00 PM EST) Preg Test, Ur Negative Negative, Indeterminate, None Detected, Invalid, Specimen unsatisfactory for evaluation, Weakly Positive QC Media Lot # [id number] Lot# Expiration Date [id number] Urine 10/01/2024 12:0 0 PM EST Anu Madrigal CNM POINT OF CARE TEST ENTER/ EDIT ORDERABLES Final Result * Pap Smear (10/01/2024 11:36 AM EST) Swab Cervix uteri structure / Unknown 10/01/2024 11:36 AM EST 10/02/2024 6:30 AM EST Narrative [facility] - 10/13/2024 12:29 PM EST ----- ------- Name: Cadence Medrano ?Age/Sex: 29/F ? : 1995 Unit#: [id number] ?? Attend Dr: ANU MADRIGAL CNM ?Re10/01/24 ?Status: DEP REF ? [facility] ? Disch: ? ----- ------- SPEC : [id number] ? RECD: 10/02/24 ? STATUS: ??SOUT ? REQ NUM: [id number] ? THEODORE: 10/01/24 ? SUBM DR: ANU MADRIGAL CNM ? ENTERED: ??10/02/24 ?SP TYPE: Pap Smr ?OTHR DR: ? ORDERED: ??Pap Smear ? Interpretation ?? Satisfactory for evaluation. ?? Negative for intraepithelial lesion or malignancy. ?? No endocervical cells seen. ?? Coccobacilli consistent with shift in vaginal ricardo. ? HPV High Risk: ??Negative ? HPV Genotyping 16: ??Negative ?? HPV Genotyping 18: ??Negative ?Clinical Information LMP: Previous PAP test: Unk Other surgery: Other history: ? Material Received ?? ThinPrep-Cervical ----- ------- Signed (signature on file) VINAY Mcclain (ASCP) 10/13/24 1229 ? ----- ------- ? END OF REPORT ? us Anu Madrigal [facility] CYTOLOGY ORDERABLES F inal Result [facility] [address] [place] [address] [phone] documented in this encounter Visit Diagnoses Diagnosis Cervical cancer screening- Primary Screening for malignant neoplasm of the cervix Procreative management Nausea Nausea alone Vaginal discharge Leukorrhea, not specified as infective documented in this encounter Additional Health Concerns Assessment Noted Time PHQ-9 Depression Total Score: 3 05/17/20 23 1:39 PM EDT documented as of this encounter Care Teams Recreation Supervisor Relationship Specialty Start Date End Date Eli Kenny MD [address] [place], [place] [phone] PCP - General Internal Medicine 02/06/23 documented as of this encounter
--- OUTSIDE RECORDS SUMMARY | 2024-10-30 16:03 | XMS_ITS | Clinical Summary ---
Author Organization [employer] Address [address] [place] [address] 7 [place] [address] Care Team Providers Care Director Distribution Name Role Phone Eli Kenny MD Primary Care Pro vider Allergies No known active allergies Medications * This document contains information received from the source organization and may not represent a complete record from that organization. emtricitabine-t enofovir DF (Truvada) 200-300 MG tablet Take 1 tablet by mouth Once per day. 30 tablet 2 4 02/26/20 25 Active Additional Information Patient not taking.Reported on 07/16/2024 metroNIDAZOLE (Metrogel) 0.75 % vaginal gel Insert 1 Application. into the vagina at bedtime for 5 doses. One applicator in the vagina every night x 5 nights 70 g 5 10/07/19 25 Active Problems Problem Noted Date Diagnosed Date [...] from aunt PLAN: 1. Follow up with [facility]: Not recommended for follow-up 2. Patient goal is be connected with a therapist 3. Behavioral Recommendations a. Utilize coping skills provided b. Engage in OP therapy once established c. Reach out to [facility] for additional support Headache 05/18/2023 Encounters Date Type Department Care Team Description 10/30/2024 11:45 AM EST Office Visit [address] [address] Rena Padron FNP Dysuria; Vaginal discharge 10/30/2024 Travel 10/30/[address] [address] Eli Kenny MD Nurse Triage 10/13/[address] [address] Geni Li, RN Results 10/05/[address] [address] Shaila Ontiveros [place] Nasreen recall 10/02/2024 Orders Only [address] [address] Trent Madrigal CNM 10/01/2024 11:00 AM EST Procedure Visit [address] [address] Trent Madrigal CNM Cervical cancer screening (Primary Dx); Procreative management; Nausea; Vaginal discharge 10/01/2024 Orders Only [address] [address] Trent Madrigal CNM 10/01/2024 Travel 09/22/[address] [address] Eli Kenny MD Call Back Request 09/01/2024 Telephone [facility] [address] [place] [address] Filemon Monge MD 09/01/2024 Orders Only [facility] [address] [place] [address] Filemon Monge MD 08/31/2024 11:20 AM EST Office Visit [facility] [address] [place], [place] [phone] Filemon Monge MD Screen for STD (sexually transmitted disease) (Primary Dx); Vaginal discharge 08/24/2024 Telephone [facility] [address] [place], [place] [phone] Eli Kenny MD Nurse Triage from Last 3 Months [...] Influenza, IIV3, injectable 06/11/2013 Influenza, Split (incl. caremla fied surface antigen) 05/23/2011,04/25/2010 Influenza, seasonal, injecta [...] Sign Reading Time Taken Comments Blood Pressure 116/71 10/30/2024 11:58 AM EST Pulse 77 10/30/2024 11:58 AM EST Temperature 36.4 ??C (97.5 ??F) 10/30/2024 11:[address] Respiratory Rate 20 10/30/2024 11:58 AM EST Oxygen Saturation 99% 10/01/2024 11:21 AM EST Inhaled Oxygen Concentration - - Weight 56.7 kg (125 lb) 10/30/2024 11:58 AM EST Height 151.1 cm (4' 11.5 ) 10/30/2024 11:[address] Body Mass Index 24.82 10/30/2024 11:58 AM EST Plan of Treatment Upcoming Encounters Date Type Department Care Team (Late st Contact Info) Description 12/02/2024 9:00 AM EDT Office Visit [facility] [address] [place] [address] [phone] Eli Kenny MD [address] [place], [place] [phone] Health Maintenance Due Date Last Done Comments Alcohol/Substance Use Screening 2005 Dental Oral Exam 08/26/2009 02/23/2009 Dental Prophylaxis 06/27/2012 12/26/2011, 0 09/21/2011, 04/17/2011, Additional history exists Pneumococcal Vaccine: Pediatrics (0 to 5 Years) and At-Risk Patients (6 to 49) Years) (1 of 2 - PCV) 2012 COVID-19 Vaccine ( - season) 2024 SDOH Screening 05/07/2024 05/07/2023 Depression Screening 05/17/2024 05/17/2023, 05/17/20 Dental X-Ray: Bitewings 07/17/2024 07/16/20, 10/02/2013, 09/21/2011, Additional history exists Dental X-Ray: Full Mouth 04/07/2025 04/06/2022, 06/03 Family Planning (PISQ) 10/01/2025 10/01/2024 Tobacco Screening 10/30/2025 10/30/2024 DTaP/Tdap/Td Vaccines (9 - Td or Tdap) 07/25/2026 07/25/2016, 07/01/2013, 08/14/2005, Additional history exists Lipid Panel 09/04/2028 09/04/2023 Cervical Cancer Screening 10/01/2029 HPV/Cotest 10/01/2029 10/01/2024 Pap Smear 10/01/2029 10/01/2024 Zoster Vaccines (1 of 2) 2043 RSV [...] Associated Diagnosis Comments BACTERIAL VAGINOSIS PANEL Routine 10/30/2024 12:17 PM EST Vaginal discharge POCT URINALYSIS DIPSTICK Routine 10/30/2024 12:15 PM EST Dysuria BACTERIAL VAGINOSIS PANEL Routine 10/01/2024 12:01 PM EST Vaginal discharge POCT , URINE Routine 10/01/2024 12:00 PM EST Nausea PAP SMEAR Routine 10/01/2024 11:36 AM EST Cervical cancer screening HPV DNA, LOW/HIGH RISK Routine 10/01/2024 11:36 AM EST POCT URINALYSIS DIPSTICK Routine 08/31/2024 11:18 AM EST Vaginal discharge CHLAMYDIA/N. GONORRHOEAE RNA, TMA, UROGENITAL Routine 08/31/2024 11:10 AM EST Vaginal discharge BACTERIAL VAGINOSIS PANEL Routine 08/31/2024 11:10 AM EST Vaginal discharge HEPATITIS C ANTIBODY Routine 07/23/2024 10:26 AM EST HIV 1/2 ANTIGEN/ANTIBODY, FOURTH GENERATION W/RFL Routine 07/23/2024 10:26 AM EST LIPID PANEL, STANDARD Routine 09/04/2023 [...] Recently Relevant to Health Maintenance Results * (ABNORMAL) Bacterial Vaginosis Panel (10/30/2024 12:17 PM EST) Only the most recent of3 resultswithin the time period is included. TRICHOMONAS VAGINALIS DETECTION BY PCR NOT DETECTED Not Detect [facility] BACTERIAL VAGINOSIS DETECTION BY PCR POSITIVE(A) Negative [facility] Comment:The BV organism targ ets of [...] DETECTION BY PCR NOT DETECTED Not Detect [facility] Nadiya glab krusei PCR NOT DETECTED Not Detect [facility] Swab Vaginal structure / Unknown 10/30/2024 12:17 PM EST 10/30/2024 1:53 PM EST Result [facility] LAB MICROBIOLOGY - GENERAL OR DERABLES Final Result [facility] [address] [place] [phone] * (ABNORMAL) POCT Urinalysis (10/30/2024 12:15 PM EST) Only the most recent of2 resultswithin the time period is included. Color, UA Yellow Clarity, UA Clear Glucose, UA Negative Bilirubin, UA Negative Ketones, UA Negative Spec Grav, UA 1.020 Blood, UA Negative Negative, None Detected pH, UA 8.5 Protein, UA Trace Urobilinogen, UA 1.0 Leukocytes, UA Negative Negative, Rare, Trace Nitrite, UA Negative Negative, None Detected Appearance, UA yellow Urine 10/30/2024 12:1 5 PM EST Result [facility] POINT OF CARE TEST ENTER/EDIT ORDERABLES Final Result * POCT , urine manually resulted (10/01/2024 12:00 PM EST) Preg Test, Ur Negative Negative, Indeterminate, None Detected, Invalid, Specimen unsatisfactory for evaluation, Weakly Positive QC Media Lot # [id number] Lot# Expiration Date [id number] Urine 10/01/2024 12:0 0 PM EST Result [facility] Trent MONTES POINT OF CARE TEST ENTER/ EDIT ORDERABLES Final Result * HPV DNA, Low/High Risk (10/01/2024 11:36 AM EST) HPV High Risk Negative Negative [facility] HPV Genotype 16 Negative Negative [facility] HPV Genotype 18 Negative Negative [facility] Comment:HPV testing performe d at [facility] (CLIA#[id number]), [address] [place] [phone].Testing for HPV was performed using the Annette [...] AM EST 10/02/2024 7:24 AM EST us Trent Madrigal [facility] BLOOD ORDERABLES Shruti l Result [facility] [address] [place] [phone] * Pap Smear (10/01/2024 11:36 AM EST) Swab Cervix uteri structure / Unknown 10/01/2024 11:36 AM EST 10/02/2024 6:30 AM EST Narrative [facility] - 10/13/2024 12:29 PM EST ----- ------- Name: Cadence Medrano ?Age/Sex: 29/F ? : 1995 Unit#: [id number] ?? Attend Dr: TRENT MADRIGAL CNM ?Re10/01/24 ?Status: DEP REF ? Location: [facility] ? Disch: ? ----- ------- SPEC : [id number] ? RECD: 10/02/24 ? STATUS: ??SOUT ? REQ NUM: [id number] ? THEODORE: 10/01/24 ? SUBM DR: TRENT MADRIGAL CNM ? ENTERED: ??10/02/24 ?SP TYPE: [...] ------- ? END OF REPORT ? us Trent Madrigal [facility] CYTOLOGY ORDERABLES F inal Result [facility] [address] [place] [phone] * Chlamydia/N. Gonorrhoeae RNA, TMA, Urogenitial (08/31/2024 11:10 AM EST) CT PCR NOT DETECTED Not Detect. [facility] Comment:A not detected test result does [...] psychologicalconsequences. NG PCR NOT DETECTED Not Detect. [facility] Comment:A not detected test result does [...] AM EST 08/31/2024 5:55 PM EST Narrative [facility] - 09/01/2024 5:26 AM EST Vaginal us Filemon Monge MD LAB MICROBIOLOGY - GENERAL ORDERABLES Final Result [facility] [address] [place] [phone] * Hepatitis C Ab (07/23/2024 10:26 AM EST) Hepatitis C Antibody Nonreactive Nonreactive [facility] Comment:Antibodies to HCV no t detected; does not exclude early acuteHCV infection. 07/23/2024 10:2 6 AM EST 07/23/2024 11:13 AM EST us Eli Tejada MD LAB BLOOD ORDERAB LES Final Result Performing Organization Address City/[facility]/ZIP Co de Phone Number [facility] [address] [place] [address] [phone] * HIV-1/2 Antigen and Antibodies, Fourth Generation, with Reflexes (07/23/2024 10:26 AM EST) HIV AB/AG Nonreactive Nonreactive [facility] Comment:HIV-1 p24 Ag and/or HIV-1/HIV-2 Ab not detected.A test result that is nonreactive does not exclude thepossibility of exposure to or infection with HIV-1 and/orHIV-2. Nonreactive results in this assay for individualswith prior exposure to HIV-1 and/or HIV-2 may be due toantigen and antibody levels that are below the limit ofdetection of this assay.The [employer] HIV Ag/Ab Combo assay result andsupplemental assay results should be interpreted inconjunction with the patient's clinical presentation,history and other laboratory results. If the results areinconsistent with clinical evidence, additional testing issuggested to confirm the result. 07/23/2024 10:2 6 AM EST 07/23/2024 11:13 AM EST us Eli Tejada MD LAB BLOOD ORDERAB LES Final Result Performing Organization Address City/[facility]/ZIP Co de Phone Number [facility] [address] [place] [address] [phone] * (ABNORMAL) Lipid Panel, Standard (09/04/2023 12:18 PM EST) Triglycerides 117 <150 mg/dL [facility] Comment:Desirable Triglyceri de: less than 150 mg/dLBorderline High Triglyceride 150-199 mg/dLHigh Triglyceride: 200-499 mg/dLVery High Triglyceride: greater than or equal to 5OO mg/dL Cholesterol 186 <200 mg/dL [facility] Comment:Desirable Cholestero l: less than 200 mg/dLBorderline High Cholesterol: 200-239 mg/dLHigh Cholesterol: greater than 239 mg/dL LDL Cholesterol Calculated 122(H) <100 mg/dL [facility] Comment:Desirable LDL: less than 100 mg/dLNear Optimal/Above Optimal LDL: 110- 129 mg/dLBorderline High LDL: 130-159 mg/dLHigh LDL: 160-189 mg/dLVery High LDL: greater than or equal to 190 mg/dL HDL Cholesterol 41 >40 mg/dL [facility] Comment:Desirable HDL: great er than 40 mg/dL Note: This HDL assay may give artificially low results in patients with liver disease. Blood Venous blood specimen / Unknown 09/04/2023 12:18 PM EST 09/04/2023 1:10 PM EST Eli Tejada MD LAB BLOOD ORDERAB LES Final Result Performing Organization Address City/State/[facility] Co de Phone Number [facility] [address] [place] [phone] from Last 3 Months or Most Recently Relevant to Health Maintenance Insurance [facility] C3 DENTAL-[facility] MEDICAID STAND ADULT * Guarantor: Cadence Medrano Account Type Relation to Patient Date of Phone Billing Address Personal/Family Self 2 [facility] Care Teams Director Distribution Relationship Specialty Start Date End Date Eli Kenny MD [address] [place] [address] [place] [address] PCP - General Internal Medicine 02/06/23
--- OUTSIDE RECORDS SUMMARY | 2024-10-30 16:03 | XMS_ITS | Encounter Summary ---
Author Organization [facility] Address [address] [place] [phone] Phone Care Team Providers Care Black Topper Name Role Phone Ericka Cheek MD Primary Care Provider [phone] Encounter Details Date Type Department Care Team (Late st Contact Info) Description 12/16/2013 Documentation EM Family Medicine [address] [place] [address] Family Medicine, Physician [address] [place], [place] [phone] Social History Tobacco Use Types Packs/Day Years [...] on filedocumented in this encounter Care Teams Black Topper Relationship Specialty Start Date End Date Ericka Cheek MD [address] [place] [address] [place] [address] PCP - General 04/12/17 02/28/23 documented as of this encounter
--- OUTSIDE RECORDS SUMMARY | 2024-10-30 16:03 | XMS_ITS | Encounter Summary ---
Author Organization [facility] Address [address] [place] [phone] Phone Care Team Providers Care Orange Grower Name Role Phone Ericka Cheek MD Primary Care Provider [phone] Encounter Details Date Type Department Care Team (Late st Contact Info) Description 03/12/2012 Documentation EM Family Medicine [address] [place] [address] Family Medicine, Physician [address] [place], [place] [phone] Social History Tobacco Use Types Packs/Day Years [...] on filedocumented in this encounter Care Teams Orange Grower Relationship Specialty Start Date End Date Ericka Cheek MD [address] [place] [address] [place] [address] PCP - General 04/12/17 02/28/23 documented as of this encounter
--- OUTSIDE RECORDS SUMMARY | 2024-10-30 16:03 | XMS_ITS | Encounter Summary ---
Author Organization [employer] Address [address] [place] [address] Care Team Providers Care Newspaper Library Manager Name Role Phone Eli Kenny MD Primary Care Pro vider Reason for Visit * Reason Onset Date Comments December10/05/2024 Encounter Details Date Type Department Care Team (Late st Contact Info) Description 10/05/2024 Telephone [facility] [address] [place], [place] [phone] Shaila Ontiveros MA December Social History Tobacco Use Types Packs/Day Years [...] is your housing situation today? I have emmanuellemarvin olson 06/17/[address] you [...] encounter Miscellaneous Notes * Telephone Encounter - Shaila Ontiveros MA - 10/05/2024 11:57 AM EST T/C- Chief Construction Inspector and Patient made a Office Visit appointment with Rudy for December. Appointment reminder sent via mail. Patient had Question about Medication she was prescribed but never called and informed about. [facility] was the one [facility] informed about new medication sent to her. Chief Construction Inspector and Nurse Carri informed Patient she came out positive for Bacterial Vaginosis and the medication is metroNIDAZOLE a Gell. We also informed we closed early last Saturday and what happened is that we received the results late Saturday when no one was in. Patient felt better about everything being cleared up and isn't concerned. documented in this encounter Plan of Treatment Upcoming Encounters Date Type Department Care Team (Late st Contact Info) Description 12/02/2024 9:00 AM EDT Office Visit [facility] [address] [place] [address] Eli Kenny MD [address] [place] [address] documented as of this encounter Visit Diagnoses Not on filedocumented in this encounter Additional Health Concerns Assessment Noted Time PHQ-9 Depression Total Score: 3 05/17/20 23 1:39 PM EDT documented as of this encounter Care Teams Newspaper Library Manager Relationship Specialty Start Date End Date Eli Kenny MD [address] [place] [address] PCP - General Internal Medicine 02/06/23 documented as of this encounter
--- OUTSIDE RECORDS SUMMARY | 2024-10-30 16:03 | XMS_ITS | Encounter Summary ---
Author Organization [employer] Address [address] [place] [address] Care Team Providers Care Public Transit Trolley Driver Name Role Phone Eli Kenny MD Primary Care Pro vider Reason for Visit * Reason Onset Date Comments Nurse Triage 10/30/2024 Encounter Details Date Type Department Care Team ([facility] st Contact Info) Description 10/30/2024 Telephone [facility] MEDICINE [address] [place] [address] Eli Kenny MD [address] [place] [address] Nurse Triage Social History Tobacco Use Types Packs/Day Years [...] encounter Miscellaneous Notes * Telephone Encounter - Roxanne ChewALEX - 10/30/2024 10:19 AM EST Triage call returned to patient who confirms that she completed her BV treatment earlier this month. Had her menses and things seemed better but that over the last three days she has noted she does not feel well. Feels weird NO fever no N/V. No vaginal bleeding LMP in Oct date unsure no concern for as post tubal ligation. Has had abdominal cramping and some low back pain. No blood or p us noted in urine. Noted that she had some slight white discharge no inner labial itching and scantodor. Patient went and purchased test strips for UTI and reports + result. Disposition reviewed andpatient in agreement with plan. ASK/F.[place] MILK DRYING MACHINE OPERATOR today at 1145am. Multiple (2) protocols were used on this call. Disposition for Call: See in Office or Video Visit Today Protocol Used: Urinary Symptoms (Adult) Protocol-Based Disposition: See in Office or Video Visit Today Video visit not offered Positive Triage Question: * Side (flank) or lower back pain present * All higher-acuity triage questions were negative Care Advice Discussed: * Reasons To Call Back - Fever occurs - Pain or burning with urination - Unable to urinate and bladder feels full - You become worse Protocol Used: Vaginal Symptoms (Adult) Protocol-Based Disposition: See in Office or Video Visit within 3 Days Positive Triage Question: * Vaginal odor (bad smell) not improved > 3 days following Care Advice * All higher-acuity triage questions were negative Care Advice Discussed: * Genital Hygiene * Reasons To Call Back - Vaginal discharge becomes yellow or green - Vaginal discharge becomes foul smelling or itchy - Fever or abdomen pain occur - You become worse * Telephone Encounter - Karri Gutierrez - 10/30/2024 9:48 AM EST Symptoms: Back Pain - Not From Injury, Vaginal Symptoms - Not Bleeding Outcome: Schedule an urgent appointment (within 4 hours) or talk to a nurse or provider soon Reason: Foul-smelling vaginal discharge Please contact pt at [phone]. documented in this encounter Plan of Treatment Upcoming Encounters Date Type Department Care Team (Late st Contact Info) Description 12/02/2024 9:00 AM EDT Office Visit [facility] MEDICINE [address] [place] [address] Eli Kenny MD [address] [place] [address] documented as of this encounter Visit Diagnoses Not on filedocumented in this encounter Additional Health Concerns Assessment Noted Time PHQ-9 Depression Total Score: 3 05/17/20 23 1:39 PM EDT documented as of this encounter Care Teams Public Transit Trolley Driver Relationship Specialty Start Date End Date Eli Kenny MD [address] [place] [address] PCP - General Internal Medicine 02/06/23 documented as of this encounter
--- OUTSIDE RECORDS SUMMARY | 2024-10-30 16:03 | XMS_ITS | Encounter Summary ---
Author Organization [facility] Address [address] [place] [address] Phone Care Team Providers Care Homicide Detective Name Role Phone Ericka Cheek MD Primary Care Provider [phone] Encounter Details Date Type Department Care Team (Late st Contact Info) Description 12/06/2010 Documentation EM Family Medicine [address] [place] [address] Family Medicine, Physician [address] [place], [place] [phone] Social History Tobacco Use Types Packs/Day Years [...] on filedocumented in this encounter Care Teams Homicide Detective Relationship Specialty Start Date End Date Ericka Cheek MD [address] [place] [address] [place] [address] PCP - General 04/12/17 02/28/23 documented as of this encounter
--- OUTSIDE RECORDS SUMMARY | 2024-10-30 16:03 | XMS_ITS | Encounter Summary ---
Author Organization [employer] Address [address] [place] [address] Care Team Providers Care Oil Heaterman Name Role Phone Eli Kenny MD Primary Care Pro vider Encounter Details Date Type Department Care Team ([facility] st Contact Info) Description 10/02/2024 Orders Only [facility] MEDICINE [address] [place], [place] [phone] Anu Ramirez CN [address] [place], [place] [phone] Social History Tobacco Use Types Packs/Day Years [...] Description 12/02/2024 9:00 AM EDT Office Visit [facility] [address] [place] [address] Eli Kenny MD [address] [place] [address] documented as of this encounter Visit Diagnoses Not on filedocumented in this encounter Additional Health Concerns Assessment Noted Time PHQ-9 Depression Total Score: 3 05/17/20 23 1:39 PM EDT documented as of this encounter Care Teams Oil Heaterman Relationship Specialty Start Date End Date Eli Kenny MD [address] [place] [address] PCP - General Internal Medicine 02/06/23 documented as of this encounter
--- OUTSIDE RECORDS SUMMARY | 2024-10-30 16:03 | XMS_ITS | Encounter Summary ---
Author Organization [facility] Address [address] [place] [address] Phone Care Team Providers Care Director Food Safety Name Role Phone Ericka Cheek MD Primary Care Provider [phone] Encounter Details Date Type Department Care Team (Late st Contact Info) Description 02/21/2011 Documentation EM Family Medicine [address] [place] [address] Family Medicine, Physician [address] [place], [place] [phone] Social History Tobacco Use Types Packs/Day Years [...] filedocumented in this encounter Care Teams Director Food Safety Relationship Specialty Start Date End Date Ericka Cheek MD [address] [place] [address] [place] [address] PCP - General 04/12/17 02/28/23 documented as of this encounter
--- OUTSIDE RECORDS SUMMARY | 2024-10-30 16:03 | XMS_ITS | Encounter Summary ---
Author Organization [employer] Address [address] [facility] 7 [place] [address] Care Team Providers Care Instrument And Electrical Technician Name Role Phone Eli Kenny MD Primary Care Pro vider Encounter Details Date Type Department Care Team (Late st Contact Info) Description 10/30/2024 11:45 AM EST Office Visit [facility] MEDICINE 230 [place], [place] [phone] [facility] 230 [place], [place] [phone] Dysuria; Vaginal discharge Social History Tobacco Use Types [...] 20 10/30/2024 11:58 AM EST Oxygen Saturation - - Inhaled Oxygen Concentration - - Weight 56.7 kg (125 lb) 10/30/2024 11:58 AM EST Height 151.1 cm (4' 11.5 ) 10/30/2024 11:[address] Body Mass Index 24.82 10/30/2024 11:58 AM EST documented in this encounter Plan of Treatment Upcoming Encounters Date Type Department Care Team (Late st Contact Info) Description 12/02/2024 9:00 AM EDT Office Visit [facility] MEDICINE [address] [place] [address] Eli Kenny MD 230 [place] [address] Scheduled Orders Name Type Priority Associated Diagnoses Orde r Schedule Chlamydia/N. Gonorrhoeae RNA, TMA, Urogenitial Microbiology Routine Vaginal discharge Ordered: 10/30/2024 Syphilis Screen Lab Routine Vaginal discharge Expected: 10/30/2024, Expires: 10/30/2025 HIV-1/2 Antigen and Antibodies, Fourth Generation, with Reflexes Lab Routine Vaginal discharge Expected: 10/30/2024 (Approximate), Expires: 10/30/2025 Hepatitis C Antibody with Reflex to HCV, RNA, Quantitative, Real-Time PCR Lab Routine Vaginal discharge Expected: 10/30/2024, Expires: 10/30/2025 documented as of this encounter Procedures Procedure Name Priority Date/Time Associated Diagnosis Comments BACTERIAL VAGINOSIS PANEL Routine 10/30/2024 12:17 PM EST Vaginal discharge POCT URINALYSIS DIPSTICK Routine 10/30/2024 12:15 PM EST Dysuria documented in this encounter Results * (ABNORMAL) Bacterial Vaginosis Panel (10/30/2024 12:17 PM EST) TRICHOMONAS VAGINALIS DETECTION BY PCR NOT DETECTED Not Detect [facility] BACTERIAL VAGINOSIS DETECTION BY PCR POSITIVE(A) Negative [facility] Comment:The BV organism targ ets [...] DETECTION BY PCR NOT DETECTED Not Detect [facility] Nadiya glab krusei PCR NOT DETECTED Not Detect [facility] Swab Vaginal structure / Unknown 10/30/2024 12:17 PM EST 10/30/2024 1:53 PM EST [facility] LAB MICROBIOLOGY - GENERAL OR DERABLES Final Result [facility] [address] [place] [phone] * (ABNORMAL) POCT Urinalysis (10/30/2024 12:15 PM EST) Color, UA Yellow Clarity, UA Clear Glucose, UA Negative Bilirubin, UA Negative Ketones, UA Negative Spec Grav, UA 1.020 Blood, UA Negative Negative, None Detected pH, UA 8.5 Protein, UA Trace Urobilinogen, UA 1.0 Leukocytes, UA Negative Negative, Rare, Trace Nitrite, UA Negative Negative, None Detected Appearance, UA yellow Urine 10/30/2024 12:1 5 PM EST [facility] SUPERVISOR SHIPFITTERS POINT OF CARE TEST ENTER/EDIT ORDERABLES Final Result documented in this encounter Visit Diagnoses Diagnosis Dysuria Vaginal discharge Leukorrhea, not specified as infective documented in this encounter Additional Health Concerns Assessment Noted Time PHQ-9 Depression Total Score: 3 05/17/20 1:39 PM EDT documented as of this encounter Care Teams Instrument And Electrical Technician Relationship Specialty Start Date End Date Eli Kenny MD [address] [place] [address] PCP - General Internal Medicine 02/06/23 documented as of this encounter
--- OUTSIDE RECORDS SUMMARY | 2024-10-30 16:03 | XMS_ITS | Encounter Summary ---
Author Organization [employer] Address [address] [facility] 7 [place] [address] Care Team Providers Care Mailroom Personnel Name Role Phone Eli Kenny MD Primary Care Pro vider Encounter Details Date Type Department Care Team ([facility] st Contact Info) Description 09/01/2024 Orders Only [facility] [address] [place], [place] [phone] Filemon Monge MD [address] [place], [place] [phone] Social History Tobacco Use Types Packs/Day Years [...] AM EDT Office Visit [facility] MEDICINE [address] [place] [address] Eli Kenny MD [address] [place] [address] documented as of this encounter Visit Diagnoses Not on filedocumented in this encounter Additional Health Concerns Assessment Noted Time PHQ-9 Depression Total Score: 3 05/17/20 23 1:39 PM EDT documented as of this encounter Care Teams Mailroom Personnel Relationship Specialty Start Date End Date Eli Kenny MD [address] [place] [address] PCP - General Internal Medicine 02/06/23 documented as of this encounter
--- OUTSIDE RECORDS SUMMARY | 2024-10-30 16:03 | XMS_ITS | Encounter Summary ---
Author Organization [employer] Address [address] [facility] 7 [place] [address] Care Team Providers Care Bottom Steep Tender Name Role Phone Eli Kenny MD Primary Care Pro vider Reason for Visit * Reason Onset Date Comments medication 07/19/2023 Encounter Details Date Type Department Care Team ([facility] st Contact Info) Description 07/19/2023 Telephone [facility] ADULT DENTAL [address] [place], [place] [phone] Alfredito Diaz DDS 230 [place] [address] medication Social History Tobacco Use Types Packs/Day [...] Description 12/02/2024 9:00 AM EDT Office Visit [facility] MEDICINE [address] [place] [address] [phone] Eli Kenny MD [address] [place] [address] documented as of this encounter Visit Diagnoses Not on filedocumented in this encounter Additional Health Concerns Assessment Noted Time PHQ-9 Depression Total Score: 3 05/17/20 23 1:39 PM EDT documented as of this encounter Care Teams Bottom Steep Tender Relationship Specialty Start Date End Date Eli Kenny MD [address] [place] [address] [phone] PCP - General Internal Medicine 02/06/23 documented as of this encounter
--- OUTSIDE RECORDS SUMMARY | 2024-10-30 16:03 | XMS_ITS | Encounter Summary ---
Author Organization [employer] Address [address] [facility] [address] [facility] [address] 7[address] [place] [address] Care Team Providers Care Assistant Professor Of Surgery Name Role Phone Eli Kenny MD Primary Care Pro vider Reason for Visit * Reason Onset Date Comments Results 10/13/2024 Encounter Details Date Type Department Care Team ([facility] st Contact Info) Description 10/13/2024 Telephone [facility] MEDICINE 230 [place], [place] [phone] Geni Li RN Results Social History Tobacco Use Types Packs/Day Years [...] encounter Miscellaneous Notes * Telephone Encounter - Anu Ramirez CNM - 10/13/2024 1:37 PM EST Noted, thanks. No further tx needed if symptoms do not recur after menses. * Telephone Encounter - Geni Li RN - 10/13/2024 1:12 PM EST TC placed to pt to inform of Anu Ramirez's message below regarding most recent PAP results. Pt advised of negative results including HPV. Pt confirmed that she did not see the message sent by Anu but did finish the duration of the Metronidazole 0.75% gel sent to the pt pharmacy. Pt does not endorse any further symptoms but is currently on her period so she is unsure. ----- Message from Anu Ramirez sent at 10/13/2024 12:46 PM EST ----- Please let Cadence know her pap was normal, HPV neg. This is good. It doesn't look like she got my message about bacterial vaginosis. Could you please confirm? Thanks! documented in this encounter Plan of Treatment Upcoming Encounters Date Type Department Care Team (Late st Contact Info) Description 12/02/2024 9:00 AM EDT Office Visit [facility] MEDICINE [address] [place] [address] Eli Kenny MD 230 [place] [address] documented as of this encounter Visit Diagnoses Not on filedocumented in this encounter Additional Health Concerns Assessment Noted Time PHQ-9 Depression Total Score: 3 05/17/20 23 1:39 PM EDT documented as of this encounter Care Teams Assistant Professor Of Surgery Relationship Specialty Start Date End Date Eli Kenny MD 230 [place] [address] PCP - General Internal Medicine 02/06/23 documented as of this encounter
--- OUTSIDE RECORDS SUMMARY | 2024-10-30 16:03 | XMS_ITS | Encounter Summary ---
Author Organization [employer] Address [address] [place] [address] Care Team Providers Care Ship Superintendent Name Role Phone Eli Kenny MD Primary Care Pro vider Reason for Visit * Reason Comments Med Refill Encounter Details Date Type Department Care Team (Late st Contact Info) Description 03/22/2023 Refill [facility] MEDICINE [address] [place] [address] [phone] Edel Montenegro DO 230 [place], [place] [phone] Social History Tobacco Use Types Packs/Day Years [...] Encounters Date Type Department Care Team (Late Contact Info) Description 12/02/2024 9:00 AM EDT Office Visit [facility] MEDICINE [address] [place] [address] Eli Kenny MD [address] [place] [address] documented as of this encounter Visit Diagnoses Not on filedocumented in this encounter Care Teams Ship Superintendent Relationship Specialty Start Date End Date Eli Kenny MD [address] [place] [address] PCP - General Internal Medicine 02/06/23 documented as of this encounter
--- OUTSIDE RECORDS SUMMARY | 2024-10-30 16:03 | XMS_ITS | Encounter Summary ---
Author Organization [facility] Address [address] [place] [address] Phone Care Team Providers Care Offender Employment Specialist Name Role Phone Ericka Cheek MD Primary Care Provider [phone] Encounter Details Date Type Department Care Team (Late st Contact Info) Description 04/18/2017 Conversion Encounter [facility] [address] [place] [address] Social History Tobacco Use Types Packs/Day Years [...] on filedocumented in this encounter Care Teams Offender Employment Specialist Relationship Specialty Start Date End Date Ericka Cheek MD 150 [place] [address] PCP - General 04/12/17 02/28/23 documented as of this encounter
--- OUTSIDE RECORDS SUMMARY | 2024-10-30 16:03 | XMS_ITS | Clinical Summary ---
Author Organization [facility] Address [address] [place] [address] Phone Care Team Providers Care Grocery Packer Name Role Phone Unavailable Primary Care Provider Unavailabl e Immunizations Immunization Administration Dates Next Due DTP 03/01/1995,199 4,01/10/1994, 994 DTaP 5 01/31/1999 HPV, Quadrivalent [...] complete this topic Procedures * Due to [place] Notizza law, this organization might not be sharing sensitive test results. Procedure Name Priority Date/Time Associated Diagnosis Comments CHLAMYDIA AND GONORRHEA, AMPLIFIED Routine 05/24/2011 1:14 PM EDT from Last 3 Months or Most Recently Relevant to Health Maintenance Results * Due to [place] Notizza law, this organization might not be sharing sensitive test results. * Chlamydia and Gonorrhoea, Amplified (05/24/2011 1:14 PM EDT) Pathologist [facility] URINE GC AMP PROBE NEGATIVE [facility] Comment: NO NEISSERIA GONORRHOEAE RNA DETECTED IN THIS PATIENT'S SAMPLE. ? (REFERENCE RANGE/NORMAL VALUE: NOT DETECTED) ? NOTE: THIS TEST USES GRAVITY METER OPERATOR MEDIATED AMPLIFICATION METHOD TO DETECT rRNA FROM [...] OTHER AGENTS. URINE CHLAMYDIA AMP PROBE NEGATIVE [facility] Comment: NO CHLAMYDIA TRACHOMATIS RNA DETECTED IN THIS PATIENT'S SAMPLE. ? (REFERENCE RANGE/NORMAL VALUE: NOT DETECTED) 05/24/2011 1:14 PM EDT Narrative [facility] - 05/24/2011 1:14 PM EDT URINE CHLAMYDIA GC AMP PROBE us Heather Maynard NP LAB MICROBIOLOGY - GENERAL ORD ERABLES Final Result [facility] [address] [place] [address], [place] from Last 3 Months or Most Recently Relevant to Health Maintenance
--- OUTSIDE RECORDS SUMMARY | 2024-10-30 16:04 | XMS_ITS | Encounter Summary ---
Author Organization [facility] Address [address] [place] [address] Phone Care Team Providers Care Shoulder Pad Molder Name Role Phone Ericka Cheek MD Primary Care Provider [phone] Encounter Details Date Type Department Care Team (Late st Contact Info) Description 05/28/2011 Documentation EM Family Medicine [address] [place] [address] Family Medicine, Physician [address] [place], [place] [phone] Social History Tobacco Use Types Packs/Day Years [...] on filedocumented in this encounter Care Teams Shoulder Pad Molder Relationship Specialty Start Date End Date Ericka Cheek MD [address] [place] [address] [place] [address] PCP - General 04/12/17 02/28/23 documented as of this encounter
--- OUTSIDE RECORDS SUMMARY | 2024-10-30 16:04 | XMS_ITS | Encounter Summary ---
Author Organization [facility] Address [address] [place] [address] Phone Care Team Providers Care Assistant Editor Name Role Phone Ericka Cheek MD Primary Care Provider [phone] Encounter Details Date Type Department Care Team (Late st Contact Info) Description 02/21/2011 Documentation EM Family Medicine [address] [place] [address] Family Medicine, Physician [address] [place], [place] [phone] Social History Tobacco Use Types Packs/Day Years [...] on filedocumented in this encounter Care Teams Assistant Editor Relationship Specialty Start Date End Date Ericka Cheek MD [address] [place] [address] [place] [address] PCP - General 04/12/17 02/28/23 documented as of this encounter
--- OUTSIDE RECORDS SUMMARY | 2024-10-30 16:04 | XMS_ITS | Encounter Summary ---
Author Organization [facility] Address [address] [place] [address] Phone Care Team Providers Care Coding Validator Name Role Phone Ericka Cheek MD Primary Care Provider [phone] Encounter Details Date Type Department Care Team (Late st Contact Info) Description 05/28/2011 Documentation EM Family Medicine [address] [place] [address] Family Medicine, Physician [address] [place], [place] [phone] Social History Tobacco Use Types Packs/Day Years [...] on filedocumented in this encounter Care Teams Coding Validator Relationship Specialty Start Date End Date Ericka Cheek MD [address] [place] [address] [place] [address] PCP - General 04/12/17 02/28/23 documented as of this encounter
--- OUTSIDE RECORDS SUMMARY | 2024-10-30 16:04 | XMS_ITS | Encounter Summary ---
Author Organization [facility] Address [address] [place] [address] Phone Care Team Providers Care Vascular Radiologist Name Role Phone Ericka Cheek MD Primary Care Provider [phone] Encounter Details Date Type Department Care Team (Late st Contact Info) Description 02/21/2011 Documentation EM Family Medicine [address] [place] [address] Family Medicine, Physician [address] [place], [place] [phone] Social History Tobacco Use Types Packs/Day Years [...] on filedocumented in this encounter Care Teams Vascular Radiologist Relationship Specialty Start Date End Date Ericka Cheek MD [address] [place] [address] [place] [address] PCP - General 04/12/17 02/28/23 documented as of this encounter
--- OUTSIDE RECORDS SUMMARY | 2024-10-30 16:04 | XMS_ITS | Encounter Summary ---
Author Organization [employer] [facility] Address [address] [place] [address] Care Team Providers Care Engraver Lettering Name Role Phone Eli Kenny MD Primary Care Pro vider Encounter Details Date Type Department Care Team (Late st Contact Info) Description 02/15/2023 Abstract [facility] ADULT DENTAL [address] [place] [address] Zaki Dumont DMD [address] [place] [address] Social History Tobacco Use Types Packs/Day Years [...] Description 12/02/2024 9:00 AM EDT Office Visit [facility] MEDICINE [address] [place] [address] Eli Kenny MD 230 [place] [address] documented as of this encounter Visit Diagnoses Not on filedocumented in this encounter Care Teams Engraver Lettering Relationship Specialty Start Date End Date Eli Kenny MD [address] [place] [address] PCP - General Internal Medicine 02/06/23 documented as of this encounter
--- OUTSIDE RECORDS SUMMARY | 2024-10-30 16:04 | XMS_ITS | Encounter Summary ---
Author Organization [facility] Address [address] [place] [address] Phone Care Team Providers Care Drywall Finisher Foreman Name Role Phone Ericka Cheek MD Primary Care Provider [phone] Encounter Details Date Type Department Care Team (Late st Contact Info) Description 05/24/2011 Documentation EM Family Medicine [address] [place] [address] Family Medicine, Physician [address] [place], [place] [phone] Social History Tobacco Use Types Packs/Day Years [...] on filedocumented in this encounter Care Teams Drywall Finisher Foreman Relationship Specialty Start Date End Date Ericka Cheek MD [address] [place] [address] [place] [address] PCP - General 04/12/17 02/28/23 documented as of this encounter
--- OUTSIDE RECORDS SUMMARY | 2024-10-30 16:04 | XMS_ITS | Encounter Summary ---
Author Organization [facility] Address [address] [place] [address] Phone Care Team Providers Care Principal Accounts Clerk Name Role Phone Ericka Cheek MD Primary Care Provider [phone] Encounter Details Date Type Department Care Team (Late st Contact Info) Description 08/20/2011 Documentation EM Family Medicine [address] [place] [address] Family Medicine, Physician [address] [place], [place] [phone] Social History Tobacco Use Types Packs/Day Years [...] on filedocumented in this encounter Care Teams Principal Accounts Clerk Relationship Specialty Start Date End Date Ericka Cheek MD [address] [place] [address] [place] [address] PCP - General 04/12/17 02/28/23 documented as of this encounter
--- OUTSIDE RECORDS SUMMARY | 2024-10-30 16:04 | XMS_ITS | Encounter Summary ---
Author Organization [facility] Address [address] [place] [address] Phone Care Team Providers Care Assurance Senior Manager Insurance Name Role Phone Ericka Cheek MD Primary Care Provider [phone] Encounter Details Date Type Department Care Team (Late st Contact Info) Description 05/24/2011 Documentation EM Family Medicine [address] [place] [address] Family Medicine, Physician [address] [place], [place] [phone] Social History Tobacco Use Types Packs/Day Years [...] on filedocumented in this encounter Care Teams Assurance Senior Manager Insurance Relationship Specialty Start Date End Date Ericka Cheek MD [address] [place] [address] [place] [address] PCP - General 04/12/17 02/28/23 documented as of this encounter
[2024-10-30 19:37] LABS: CT PCR NOT DETECTED (Not Detect.); NG PCR NOT DETECTED (Not Detect.)
== END 2024-10-30 13:53 | disposition home or self-care (01) ==
LOC: HO.HHCLNP 13:52
PROVIDERS: Visit Provider Registered Nurse
DX: N89.8 Other specified noninflammatory disorders of vagina (principal)
CPT/HCPCS: 81515; 87491; 87591

== ENCOUNTER 2024-12-09 17:06 | Outpatient (REF) | payer MEDICAID, SELFPAY ==
--- OUTSIDE RECORDS SUMMARY | 2024-12-09 17:55 | XMS_ITS | Encounter Summary ---
Author Organization [facility] Address [address] [place] [address] Phone Care Team Providers Care Child Adolescent Psychiatrist Name Role Phone Ericka Cheke MD Primary Care Provider Encounter Details Date Type Department Care Team (Late st Contact Info) Description 03/12/2012 Documentation EM Family Medicine [address] [place] [address] Family Medicine, Physician [address] [place], [place] [phone] Social History Tobacco Use Types Packs/Day Years [...] on filedocumented in this encounter Care Teams Child Adolescent Psychiatrist Relationship Specialty Start Date End Date Ericka Cheek MD [address] [place] [address] [place] [address] PCP - General 04/12/17 02/28/23 documented as of this encounter
--- OUTSIDE RECORDS SUMMARY | 2024-12-09 17:56 | XMS_ITS | Encounter Summary ---
Author Organization [facility] Address [address] [place] [address] Phone Care Team Providers Care In Store Marketing Representative Name Role Phone Ericka Cheek MD Primary Care Provider [phone] Encounter Details Date Type Department Care Team (Late st Contact Info) Description 02/21/2011 Documentation EM Family Medicine [address] [place] [address] Family Medicine, Physician [address] [place], [place] [phone] Social History Tobacco Use Types Packs/Day Years [...] on filedocumented in this encounter Care Teams In Store Marketing Representative Relationship Specialty Start Date End Date Ericka Cheek MD [address] [place] [address] [place] [address] PCP - General 04/12/17 02/28/23 documented as of this encounter
--- OUTSIDE RECORDS SUMMARY | 2024-12-09 17:56 | XMS_ITS | Encounter Summary ---
Author Organization [facility] Address [address] [place] [address] Phone Care Team Providers Care Plunger Machine Operator Name Role Phone Ericka Cheek MD Primary Care Provider [phone] Encounter Details Date Type Department Care Team (Late st Contact Info) Description 02/21/2011 Documentation EM Family Medicine [address] [place] [address] Family Medicine, Physician [address] [place], [place] [phone] Social History Tobacco Use Types Packs/Day Years [...] on filedocumented in this encounter Care Teams Plunger Machine Operator Relationship Specialty Start Date End Date Ericka Cheek MD [address] [place] [address] [place] [address] PCP - General 04/12/17 02/28/23 documented as of this encounter
--- OUTSIDE RECORDS SUMMARY | 2024-12-09 17:56 | XMS_ITS | Encounter Summary ---
Author Organization [facility] Address [address] [place] [address] Phone Care Team Providers Care Fire Prevention Forester Name Role Phone Ericka Cheek MD Primary Care Provider [phone] Encounter Details Date Type Department Care Team (Late st Contact Info) Description 05/24/2011 Documentation EM Family Medicine [address] [place] [address] Family Medicine, Physician [address] [place], [place] [phone] Social History Tobacco Use Types Packs/Day Years [...] on filedocumented in this encounter Care Teams Fire Prevention Forester Relationship Specialty Start Date End Date Ericka Cheek MD [address] [place] [address] [place] [address] PCP - General 04/12/17 02/28/23 documented as of this encounter
--- OUTSIDE RECORDS SUMMARY | 2024-12-09 17:56 | XMS_ITS | Encounter Summary ---
Author Organization [employer] [facility] Address [address] [place] [address] Care Team Providers Care Pbx Teacher Name Role Phone Eli Kenny MD Primary Care Pro vider Encounter Details Date Type Department Care Team (Late st Contact Info) Description 02/15/[address] [facility] ADULT DENTAL [address] [place] [address] Zaki Dumont DMD [address] [place] [address] Social History Tobacco Use Types Packs/Day Years [...] Care Team (Late st Contact Info) Description 12/30/2024 11:00 AM EDT Office Visit [facility] ADULT D[facility] [address] [place] [address] Kesha Willis documented as of this encounter Visit Diagnoses Not on filedocumented in this encounter Care Teams Pbx Teacher Relationship Specialty Start Date End Date Eli Kenny MD [address] [place] [address] PCP - General Internal Medicine 02/06/23 documented as of this encounter
--- OUTSIDE RECORDS SUMMARY | 2024-12-09 17:56 | XMS_ITS | Encounter Summary ---
Author Organization [facility] Address [address] [place] [address] Phone Care Team Providers Care Clinical Team Manager Name Role Phone Ericka Cheek MD Primary Care Provider [phone] Encounter Details Date Type Department Care Team (Late st Contact Info) Description 05/28/2011 Documentation EM Family Medicine [address] [place] [address] Family Medicine, Physician [address] [place], [place] [phone] Social History Tobacco Use Types Packs/Day Years [...] on filedocumented in this encounter Care Teams Clinical Team Manager Relationship Specialty Start Date End Date Ericka Cheek MD [address] [place] [address] [place] [address] PCP - General 04/12/17 02/28/23 documented as of this encounter
--- OUTSIDE RECORDS SUMMARY | 2024-12-09 17:56 | XMS_ITS | Clinical Summary ---
Author Organization [email or web address] Address [address] [place] [address] 7 [place] [address] Care Team Providers Care Boiler Control Room Operator Name Role Phone Eli Kenny MD Primary Care Pro vider Allergies No known active allergies Medications * This document contains information received from the source organization and may not represent a complete record from that organization. emtricitabine- tenofovir DF (Truvada) 200-300 MG tablet Take 1 tablet by mouth Once per day. 30 tablet 2 02/26/20 24 025 Discontinued(Me d list cleanup (will not trigger notification to Pharmacy)) neomycin-polym yxin-hydrocort isone (Cortisporin) otic solutionIndica tions:Acute otitis externa of left ear, unspecified type Administer 3 drops into the left ear 3 times daily for 5 days. 10 mL 11/07/19 25 025 Active Problems Problem Noted Date Diagnosed [...] from aunt PLAN: 1. Follow up with [facility]: Not recommended for follow-up 2. Patient goal is be connected with a therapist 3. Behavioral Recommendations a. Utilize coping skills provided b. Engage in OP therapy once established c. Reach out to [facility] for additional support Headache 05/18/2023 Encounters Date Type Department Care Team Description 12/09/2024 10:00 AM EDT Office Visit [facility] [address] [address] Edel Montenegro DO Vaginal discharge (Primary Dx); Nipple problem 12/02/[address] [address] Eli Kenny MD 11/23/2024 Patient Outreach [address] [address] Jack Edward Care Coordination (CHW outreach for SDOH PT-1 and food needs-LVM ) 11/23/[address] [address] Eli Kenny MD chart prep 11/23/2024 Patient Outreach [address] [address] Eli Kenny MD Pre-visit Planning (SDOH Screening positive and Tobacco screening positive) 11/13/2024 Population Health Risk Score [facility] Department [address] [phone] Provider, Population Health Generic 11/06/2024 9:40 AM EST Office Visit [facility] [address] [address] Kg Stone MD Acute otitis externa of left ear, unspecified type (Primary Dx) 11/05/[address] [address] Eli Kenny MD Nurse Triage 11/02/[address] [place] [address] ClintonRena, SOCIAL WORK THERAPIST Results 10/31/2024 Orders Only [facility] [address] [place] [address] Clinton Rena, SOCIAL WORK THERAPIST Bacterial vaginosis (Primary Dx) 10/30/2024 11:45 AM EST Office Visit [address] [place] [address] Clinton Rena, SOCIAL WORK THERAPIST Vaginal discharge 10/30/2024 Travel 10/30/[address] [address] Eli Kenny MD Nurse Triage 10/13/[address] [address] Geni Li RN Results 10/05/[address] [address] Shaila Ontiveros MA Nasreen recall 10/02/2024 Orders Only [address] [address] Trent Madrigal CNM 10/01/2024 11:00 AM EST Procedure Visit [address] [address] Trent Madrigal CNM Cervical cancer screening (Primary Dx); Procreative management; Nausea; Vaginal discharge 10/01/2024 Orders Only [address] [address] Trent Madrigal CNM 10/01/2024 Travel 09/22/[address] [address] Eli Kenny MD Call Back Request from Last 3 Months Immunizations Name Administration [...] 07/16/2024 MMR 10/07/2015,01/27/1998,11/30/1994 Meningococcal MCV4P ACYW-135 10/22/2006 OPV, Trivalent 01/31/1999, 4,01/10/1994,10/24 Tdap 07/25/2016,07/01/2013,08/14/2005 Varicella 10/07/2015 Family [...] What is your housing situation today? I do not have housing (Staying with others, in a hotel, in a mcc, living outside on the street, on a beach, in a car, or in a park 11/23/[address] you li ve. Do you have problems with any of the following? None of the above 11/23/2024 Food Insecurity Answer Date Recorded Within the past 12 months, y ou worried that your food would run out before you got money to buy more: Sometimes True 2024 Within the past 12 months,th e food you bought just didn't last and you didn't have enough money to get more: Sometimes True 11/23/2024 Transportation Answer Date Recorded In the past 12 months, has l ack of transportation kept you from medical appts, meetings, work or from getting things needed for daily living? Yes, it has kept me from medical appointments or getting medications. 11/23/2024 Utilities Answer Date Recorded In the past 12 months, has t he electric, gas, oil or water company threatened to shut off services in your home? No 11/23/2024 Depression Answer Date Recorded Patient Health Questionnaire-2 Score 1 05/17/2023 Internet Access Answer Date Recorded Internet Access Q1 Yes 11/23/2024 Internet Access Q2 Not on file 11/23/2024 Comments No Sex and Gender Information Value Date Recorded Sex Assigned at Female 07/02/2022 10:24 AM EDT Legal Sex Female 10:24 AM EDT Gender Identity Female 07/02/2022 10:24 AM EDT Sexual Orientation Straight 07/02/2022 10 :24 AM EDT Last Filed Vital Signs Vital Sign Reading Time Taken Comments Blood Pressure 118/77 12/09/2024 10:14 AM EDT Pulse 83 12/09/2024 10:14 AM EDT Temperature 36.8 ??C (98.2 ??F) 12/09/2024 10:14 AM E DT Respiratory Rate 16 12/09/2024 10:14 AM EDT Oxygen Saturation 99% 12/09/2024 10:14 AM EDT Inhaled Oxygen Concentration - - Weight 57.2 kg (126 lb) 12/09/2024 10:14 AM EDT Height 149.9 cm (4' 11 ) 12/09/2024 10:14 AM EDT Body Mass Index 25.45 12/09/2024 10:14 AM EDT Plan of Treatment Upcoming Encounters Date Type Department Care Team (Late st Contact Info) Description 12/30/2024 11:00 AM EDT Office Visit [facility] ADULT [facility] [address] [place] [address] Kesha Willis Health Maintenance Due Date Last Done Comments Alcohol/Substance Use Screening 2005 Dental Oral Exam 08/26/2009 02/23/2009 Dental Prophylaxis 06/27/2012 12/26/2011, 0 09/21/2011, 04/17/2011, Additional history exists Pneumococcal Vaccine: Pediatrics (0 to 5 Years) and At-Risk Patients (6 to 49) Years) (1 of 2 - PCV) 2012 COVID-19 Vaccine ( - season) 2024 Depression Screening 05/17/2024 05/17/2023, 05/17/20 Dental X-Ray: Bitewings 07/17/2024 07/16/20, 10/02/2013, 09/21/2011, Additional history exists Dental X-Ray: Full Mouth 04/07/2025 04/06/2022, 06/03 Family Planning (PISQ) 10/01/2025 10/01/2024 SDOH Screening 11/23/2025 11/23/2024 Tobacco Screening 12/09/2025 12/09/2024 DTaP/Tdap/Td Vaccines (9 - Td or Tdap) [...] Name Priority Date/Time Associated Diagnosis Comments POCT URINALYSIS DIPSTICK Routine 12/09/2024 10:23 AM EDT Vaginal discharge POCT , URINE Routine 12/09/2024 10:22 AM EDT Vaginal discharge CHLAMYDIA/N. GONORRHOEAE RNA, TMA, UROGENITAL Routine 10/30/2024 12:36 PM EST Vaginal discharge BACTERIAL VAGINOSIS PANEL Routine 10/30/2024 12:17 PM EST Vaginal discharge POCT URINALYSIS DIPSTICK Routine 10/30/2024 12:15 PM EST Vaginal discharge BACTERIAL VAGINOSIS PANEL Routine 10/01/2024 12:01 PM EST Vaginal discharge POCT , URINE Routine 10/01/2024 12:00 PM EST Nausea PAP SMEAR Routine 10/01/2024 11:36 AM EST Cervical cancer screening HPV DNA, LOW/HIGH RISK Routine 10/01/2024 11:36 AM EST HEPATITIS C ANTIBODY Routine 07/23/2024 [...] Relevant to Health Maintenance Results * POCT urinalysis dipstick manually resulted (12/09/2024 10:23 AM EDT) Only the most recent of2 resultswithin the time period is included. Color, UA Yellow Comment:Dark Clarity, UA Clear Glucose, UA Negative Bilirubin, UA Negative Ketones, UA Positive Comment:Trace Spec Grav, UA 1.030 Blood, UA Negative Negative, None Detected pH, UA 6.0 Protein, UA Trace Urobilinogen, UA 1.0 Leukocytes, UA Negative Negative, Rare, Trace Nitrite, UA Negative Negative, None Detected Appearance, UA OK Urine 12/09/2024 10:2 3 AM EDT Edel Montenegro DO POINT OF CARE TEST ENTER/MELINDA T ORDERABLES Final Result * POCT , urine manually resulted (12/09/2024 10:22 AM EDT) Only the most recent of2 resultswithin the time period is included. Preg Test, Ur Negative Negative, Indeterminate, None Detected, Invalid, Specimen unsatisfactory for evaluation, Weakly Positive Urine 12/09/2024 10:2 2 AM EDT Edelnelia Montenegro DO POINT OF CARE TEST ENTER/MELINDA T ORDERABLES Final Result * Chlamydia/N. Gonorrhoeae RNA, TMA, Urogenitial (10/30/2024 12:36 PM EST) CT PCR NOT DETECTED Not Detect. [facility] Comment:A not detected test [...] psychologicalconsequences. NG PCR NOT DETECTED Not Detect. [facility] Comment:A not detected test [...] lead to adverse medical, social or psychologicalconsequences. Urine (Urine, Random) 10/30/2024 12:36 PM EST 10/30/2024 5:53 PM EST Narrative [facility] - 10/30/2024 7:37 PM EST Urine [facility] MICROBIOLOGY - GENERAL OR DERABLES Final Result [facility] [address] [place] [phone] * (ABNORMAL) Bacterial Vaginosis Panel (10/30/2024 12:17 PM EST) Only the most recent of2 resultswithin the time period is included. TRICHOMONAS VAGINALIS DETECTION BY PCR NOT DETECTED Not Detect [facility] BACTERIAL VAGINOSIS DETECTION BY PCR POSITIVE(A) Negative [facility] Comment:The BV organism targ [...] DETECTION BY PCR NOT DETECTED Not Detect [facility] Nadiya glab krusei PCR NOT DETECTED Not Detect [facility] Swab Vaginal structure / Unknown 10/30/2024 12:17 PM EST 10/30/2024 1:53 PM EST [facility] LAB MICROBIOLOGY - GENERAL OR DERABLES Final Result [facility] [address] [place] [phone] * HPV DNA, Low/High Risk (10/01/2024 11:36 AM EST) HPV High Risk Negative Negative [facility] HPV Genotype 16 Negative Negative [facility] HPV Genotype 18 Negative Negative [facility] Comment:HPV testing performe d at [facility] (CLIA#[id number]), [address] [place] [address].Testing for HPV was performed using the [employer]system. The presence of HPV in the female [...] 10/02/2024 7:24 AM EST us Trent Madrigal CNM LAB BLOOD ORDERABLES Shruti nate Result [facility] [address] [place] [phone] * Pap Smear (10/01/2024 11:36 AM EST) Swab Cervix uteri structure / Unknown 10/01/2024 11:36 AM EST 10/02/2024 6:30 AM EST Kamila [facility] - 10/13/2024 12:29 PM EST ----- ------- Name: Cadence Medrano ?Age/Sex: 29/F ? : 1995 Unit#: [id number] ?? Attend Dr: TRENT MADRIGAL CNM ?Re10/01/24 ?Status: DEP REF ? Location: HO.HHCLNP ? Disch: ? ----- ------- SPEC : [id number] ? RECD: 10/02/24 ? STATUS: ??SOUT ? REQ NUM: [id number] ? THEODORE: 10/01/24 ? SUBM DR: TRENT MADRIGAL CNM ? ENTERED: ??10/02/24 ?SP TYPE: Pap Smr ?OTHR : ? ORDERED: ??Pap Smear ? Interpretation ?? [...] ------- Signed (signature on file) VINAY Mcclain ([facility]) 10/13/24 1229 ? ----- ------- ? END OF REPORT ? us Trent Madrigal CNM LAB CYTOLOGY ORDERABLES F inal Result Performing Organization Address [facility]/ZIP Co de Phone Number [facility] [address] [place] [address] [phone] * Hepatitis C Ab (07/23/2024 10:26 AM EST) Pathologist [facility] Hepatitis C Antibody Nonreactive Nonreactive [facility] Comment:Antibodies to HCV no t detected; does not exclude early acuteHCV infection. 07/23/2024 10:2 6 AM EST 07/23/2024 11:13 AM EST us Eli Tejada MD LAB BLOOD ORDERAB LES Final Result Performing Organization Address [facility]/ZIP Co de Phone Number [facility] [address] [place] [address] [phone] * HIV-1/2 Antigen and Antibodies, Fourth Generation, with Reflexes (07/23/2024 10:26 AM EST) Pathologist [facility] HIV AB/AG Nonreactive Nonreactive [facility] Comment:HIV-1 p24 Ag and/or HIV-1/HIV-2 Ab not detected.A test result that is nonreactive does not exclude thepossibility of exposure to or infection with HIV-1 and/orHIV-2. Nonreactive results in this assay for individualswith prior exposure to HIV-1 and/or HIV-2 may be due toantigen and antibody levels that are below the limit ofdetection of this assay.The [employer] HIV Ag/Ab Combo assay result andsupplemental assay results should be interpreted inconjunction with the patient's clinical presentation,history and other laboratory results. If the results areinconsistent with clinical evidence, additional testing issuggested to confirm the result. 07/23/2024 10:2 6 AM EST 07/23/2024 11:13 AM EST us Eli Tejada MD LAB BLOOD ORDERAB LES Final Result [facility] [address] [place] [phone] [phone] * (ABNORMAL) Lipid Panel, Standard (09/04/2023 12:18 PM EST) Triglycerides 117 <150 mg/dL [facility] Comment:Desirable Triglyceri de: less than 150 mg/dLBorderline High Triglyceride 150-199 mg/dLHigh Triglyceride: 200-499 mg/dLVery High Triglyceride: greater than or equal to 5OO mg/dL Cholesterol 186 <200 mg/dL [facility] Comment:Desirable Cholestero l: less than 200 mg/dLBorderline High Cholesterol: 200-239 mg/dLHigh Cholesterol: greater than 239 mg/dL LDL Cholesterol Calculated 122(H) <100 mg/dL [facility] Comment:Desirable LDL: less than 100 mg/dLNear Optimal/Above Optimal LDL: 110- 129 mg/dLBorderline High LDL: 130-159 mg/dLHigh LDL: 160-189 mg/dLVery High LDL: greater than or equal to 190 mg/dL HDL Cholesterol 41 >40 mg/dL [facility] Comment:Desirable HDL: great er than 40 mg/dL Note: This HDL assay may give artificially low results in patients with liver disease. Blood Venous blood specimen / Unknown 09/04/2023 12:18 PM EST 09/04/2023 1:10 PM EST Eli Tejada MD LAB BLOOD ORDERAB LES Final Result [facility] [address] [place] [address] [phone] from Last 3 Months or Most Recently Relevant to Health Maintenance Insurance [facility] C3 DENTAL-[facility] MEDICAID STAND ADULT Care Teams Boiler Control Room Operator Relationship Specialty Start Date End Date Eli Kenny MD [address] [place] [address] [phone] PCP - General Internal Medicine 02/06/23
--- OUTSIDE RECORDS SUMMARY | 2024-12-09 17:56 | XMS_ITS | Encounter Summary ---
Author Organization [employer] [facility] Address [address] [place] [address] [address] [place] [address] Care Team Providers Care Manager Intran[employer] Name Role Phone Eli Kenny MD Primary Care Pro vider Reason for Visit * Reason Comments Med Refill Encounter Details Date Type Department Care Team (Late st Contact Info) Description 03/22/2023 Refill [facility] [address] [place] [address] Edel Montenegro DO [address] [place], [place] [phone] Social History Tobacco Use Types Packs/Day Years [...] Description 12/30/2024 11:00 AM EDT Office Visit [facility] [address] [place] [address] Kesha Willis documented as of this encounter Visit Diagnoses Not on filedocumented in this encounter Care Teams Manager Intranet Relationship Specialty Start Date End Date Eli Kenny MD [address] [place] [phone] PCP - General Internal Medicine 02/06/23 documented as of this encounter
--- OUTSIDE RECORDS SUMMARY | 2024-12-09 17:56 | XMS_ITS | Clinical Summary ---
Author Organization [facility] Address [address] [place] [address] Phone Care Team Providers Care Mainspring Barrel Assembly Cleaner Name Role Phone Unavailable Primary Care Provider [...] complete this topic Procedures * Due to [place] [employer]st law, this organization might not be sharing sensitive test results. Procedure Name Priority Date/Time Associated Diagnosis Comments CHLAMYDIA AND GONORRHEA, AMPLIFIED Routine 05/24/2011 1:14 PM EDT from Last 3 Months or Most Recently Relevant to Health Maintenance Results * Due to [place] You[employer]st law, this organization might not be sharing sensitive test results. * Chlamydia and Gonorrhoea, Amplified (05/24/2011 1:14 PM EDT) Pathologist [facility] URINE GC AMP PROBE NEGATIVE [facility] Comment: NO NEISSERIA GONORRHOEAE RNA DETECTED IN THIS PATIENT'S SAMPLE. ? (REFERENCE RANGE/NORMAL VALUE: NOT DETECTED) ? NOTE: THIS TEST USES DIESEL ENGINE ENGINEER MEDIATED AMPLIFICATION METHOD TO DETECT rRNA FROM [...] AGENTS. URINE CHLAMYDIA AMP PROBE NEGATIVE [facility] Comment: NO CHLAMYDIA TRACHOMATIS RNA DETECTED IN THIS PATIENT'S SAMPLE. ? (REFERENCE RANGE/NORMAL VALUE: NOT DETECTED) 05/24/2011 1:14 PM EDT Narrative [facility] - 05/24/2011 1:14 PM EDT URINE CHLAMYDIA GC AMP PROBE us Heather Maynard NP LAB MICROBIOLOGY - GENERAL ORD ERABLES Final Result [facility] [address] [place] [address], [place] from Last 3 Months or Most Recently Relevant to Health Maintenance
--- OUTSIDE RECORDS SUMMARY | 2024-12-09 17:56 | XMS_ITS | Encounter Summary ---
Author Organization [employer] Address [address] [facility] 7 [place] [address] Care Team Providers Care Juice Mixer Name Role Phone Eli Kenny MD Primary Care Pro vider Reason for Visit * Reason Onset Date Comments medication 07/19/2023 Encounter Details Date Type Department Care Team ([facility] st Contact Info) Description 07/19/[address] [facility] ADULT DENTAL [address] [place], [place] [phone] Alfredito Diaz DDS [address] [place] [address] medication Social History Tobacco Use Types Packs/Day [...] 11:00 AM EDT Office Visit [facility]ULT [facility] [address] [place] [address] Kesha Willis documented as of this encounter Visit Diagnoses Not on filedocumented in this encounter Additional Health Concerns Assessment Noted Time PHQ-9 Depression Total Score: 3 05/17/20 23 1:39 PM EDT documented as of this encounter Care Teams Juice Mixer Relationship Specialty Start Date End Date Eli Kenny MD [address] [place] [address] PCP - General Internal Medicine 02/06/23 documented as of this encounter
--- OUTSIDE RECORDS SUMMARY | 2024-12-09 17:56 | XMS_ITS | Encounter Summary ---
Author Organization [facility] Address [address] [place] [address] Phone Care Team Providers Care Medical Billing Supervisor Name Role Phone Ericka Cheek MD Primary Care Provider [phone] Encounter Details Date Type Department Care Team (Late st Contact Info) Description 05/24/2011 Documentation EM Family Medicine [address] [place] [address] Family Medicine, Physician [address] [place], [place] [phone] Social History Tobacco Use Types Packs/Day Years [...] on filedocumented in this encounter Care Teams Medical Billing Supervisor Relationship Specialty Start Date End Date Ericka Cheek MD [address] [place] [address] [place] [address] PCP - General 04/12/17 02/28/23 documented as of this encounter
--- OUTSIDE RECORDS SUMMARY | 2024-12-09 17:56 | XMS_ITS | Encounter Summary ---
Author Organization [facility] Address [address] [place] [address] Phone Care Team Providers Care Employee Relations Representative Name Role Phone Ericka Cheek MD Primary Care Provider [phone] Encounter Details Date Type Department Care Team (Late st Contact Info) Description 05/28/2011 Documentation EM Family Medicine [address] [place] [address] Family Medicine, Physician [address] [place], [place] [phone] Social History Tobacco Use Types Packs/Day Years [...] on filedocumented in this encounter Care Teams Employee Relations Representative Relationship Specialty Start Date End Date Ericka Cheek MD [address] [place] [address] [place] [address] PCP - General 04/12/17 02/28/23 documented as of this encounter
--- OUTSIDE RECORDS SUMMARY | 2024-12-09 17:56 | XMS_ITS | Encounter Summary ---
Author Organization [employer] Address [address] [facility] 7 [place] [address] Care Team Providers Care Looseleaf Binder Coverer Name Role Phone Eli Kenny MD Primary Care Pro vider Encounter Details Date Type Department Care Team ([facility] st Contact Info) Description 09/01/2024 Orders Only [facility]EDS [address] [place], [place] [phone] Filemon Monge MD [address] [place], [place] [phone] Social History Tobacco Use Types Packs/Day Years [...] Description 12/30/2024 11:00 AM EDT Office Visit [facility] ADULT DENTAL [address] [place] [address] Kesha Willis documented as of this encounter Visit Diagnoses Not on filedocumented in this encounter Additional Health Concerns Assessment Noted Time PHQ-9 Depression Total Score: 3 05/17/20 23 1:39 PM EDT documented as of this encounter Care Teams Looseleaf Binder Coverer Relationship Specialty Start Date End Date Eli Kenny MD [address] [place] [address] PCP - General Internal Medicine 02/06/23 documented as of this encounter
--- OUTSIDE RECORDS SUMMARY | 2024-12-09 17:56 | XMS_ITS | Encounter Summary ---
Author Organization [employer] Address [address] [place] [address] 7 [place] [address] Care Team Providers Care Crop Or Grain Farmer Name Role Phone Eli Kenny MD Primary Care Pro vider Reason for Visit * Reason Comments Vaginal Discharge Encounter Details Date Type Department Care Team ([facility] st Contact Info) Description 12/09/2024 10:00 AM EDT Office Visit [facility] [address] [place] [address] Edel Montenegro DO [address] [place] [address] Vaginal discharge (Primary Dx); Nipple problem Social History Tobacco Use Types Packs/Day Years [...] with others, in a hotel, in a group home, living outside on the street, on a [...] Mass Index 25.45 12/09/2024 10:14 AM EDT documented in this encounter Progress Notes * Edel Montenegro, DO - 12/09/2024 10:00 AM EDT SUBJECTIVE: Cadence Medrano is a 29 y.o. year old female who presents for sick visit . HPI She comes to [place] c/o vaginal discharge since yesterday. She says that a few days ago she had some pelvic cramping across her lower abd. She says the following day she started noticing a slight vaginal odor and yesterday developed a clear, slightly thick vaginal discharge. She says that her pelvic cramping has significantly improved. She denies any UTI sx. She feels that the odor/discharge could be BV. She has h/o trich which was treated in Jul 2024. She reports h/o frequent BV, last tested positive Oct 2024. She says that she bought some feminine gummies off of [employer] tok which she was taking and hersx started when she ran out of the gummies. Her last period finished last week. She is sexually active with her BF. No new partners. She has h/o BTL and does not use contraception. She reports an episode of b/l nipple tingling a couple of days ago. She says that she took a showerand her sx resolved. No breast masses. No nipple discharge. No skin changes. Menarche age 10. Firstpregnancy age 16. No family h/o breast cancer. History provided by: Patient wash driller helper used: No Vaginal Discharge Quality: Watery and clear Severity: Mild Duration: 1 day Timing: Intermittent Context: spontaneously Context: not recent antibiotic use Associated symptoms: no abdominal pain, no dyspareunia, no dysuria, no fever, no genital lesions, no nausea, no urinary incontinence and no vomiting Risk factors: unprotected sex Risk factors: no new sexual partner Review of Systems Constitutional: Negative for chills and fever. Respiratory: Negative for shortness of breath. Cardiovascular: Negative for chest pain and leg swelling. Gastrointestinal: Negative for abdominal pain, diarrhea, nausea and vomiting. Genitourinary: Positive for pelvic pain and vaginal discharge. Negative for bladder incontinence, dyspareunia, dysuria, flank pain, frequency, hematuria, urgency, vaginal bleeding and vaginal pain. Neurological: Negative for headaches. Patient Active Problem List Diagnosis Healthcare maintenance High risk sexual behavior Decreased hearing Tobacco use Abnormal CT scan Depression, unspecified Headache Family conflict Dental caries History of tooth extraction Acute right-sided low back pain without sciatica Breast pain Pelvic pain No Known Allergies OBJECTIVE Vitals: 12/09/24 1014 BP: 118/77 BP Location: Left arm Patient Position: Sitting BP Cuff Size: Adult Pulse: 83 Resp: 16 Temp: 98.2 ??F (36.8 ??C) TempSrc: Temporal SpO2: 99% Weight: 126 lb (57.2 kg) Height: 4' 11 (1.499 m) Physical Exam Constitutional: General: She is not in acute distress. Appearance: Normal appearance. Cardiovascular: Rate and Rhythm: Normal rate and regular rhythm. Heart sounds: Normal heart sounds. No murmur heard. Pulmonary: Effort: Pulmonary effort is normal. Breath sounds: Normal breath sounds. No wheezing or rhonchi. Abdominal: General: Bowel sounds are normal. Palpations: Abdomen is soft. There is no mass. Tenderness: There is no abdominal tenderness. There is no right CVA tenderness, left CVA tenderness, guarding or rebound. Neurological: General: No focal deficit present. Mental Status: She is alert and oriented to person, place, and time. Cranial Nerves: No cranial nerve deficit. Motor: No weakness. Gait: Gait normal. Psychiatric: Mood and Affect: Mood normal. Office Visit on 12/09/2024 Component Date Value Ref Range Status Preg Test, Ur 12/09/2024 Negative Negative, Indeterminate, None Detected, Invalid, Specimen unsatisfactory for evaluation, Weakly Positive Final Color, UA 12/09/2024 Yellow Final Dark Clarity, UA 12/09/2024 Clear Final Glucose, UA 12/09/2024 Negative Final Bilirubin, UA 12/09/2024 Negative Final Ketones, UA 12/09/2024 Positive Final Trace Spec Grav, UA 12/09/2024 1.030 Final Blood, UA 12/09/2024 Negative Negative, None Detected Final pH, UA 12/09/2024 6.0 Final Protein, UA 12/09/2024 Trace Final Urobilinogen, UA 12/09/2024 1.0 Final Leukocytes, UA 12/09/2024 Negative Negative, Rare, Trace Final Nitrite, UA 12/09/2024 Negative Negative, None Detected Final Appearance, UA 12/09/2024 OK Final ASSESSMENT/PLAN Diagnoses and all orders for this visit: Vaginal discharge With h/o recurrent BV, HCG negative -send BV and GC/CT -send urine culture r/o UTI -advised pt will treat pending results -advised rtc if sx do not resolve - POCT , urine manually resulted - POCT urinalysis dipstick manually resulted - Bacterial Vaginosis - Chlamydia/N. Gonorrhoeae RNA, TMA, Urogenitial - Culture, Urine, Routine Nipple problem Episode of tingling sensation, sx resolved -advised rtc if sx recur, she agrees with plans F/U with PCP as scheduled or sooner prn No current outpatient medications on file. documented in this encounter Plan of Treatment Upcoming Encounters Date Type Department Care Team (Late st Contact Info) Description 12/30/2024 11:00 AM EDT Office Visit [facility] ADULT [facility] [address] [place] [address] Kesha Willis Scheduled Orders Name Type Priority Associated Diagnoses Orde r Schedule Bacterial Vaginosis Microbiology Routine Vaginal discharge Ordered: 12/09/2024 Chlamydia/N. Gonorrhoeae RNA, TMA, Urogenitial Microbiology Routine Vaginal discharge Ordered: 12/09/2024 Culture, Urine, Routine Microbiology Routine Vaginal discharge Ordered: 12/09/2024 documented as of this encounter Procedures Procedure Name Priority Date/Time Associated Diagnosis Comments POCT URINALYSIS DIPSTICK Routine 12/09/2024 10:23 AM EDT Vaginal discharge POCT , URINE Routine 12/09/2024 10:22 AM EDT Vaginal discharge documented in this encounter Results * POCT urinalysis dipstick manually resulted (12/09/2024 10:23 AM EDT) Color, UA Yellow Comment:Dark Clarity, UA Clear [...] urine manually resulted (12/09/2024 10:22 AM EDT) Preg Test, Ur Negative Negative, Indeterminate, None Detected, Invalid, Specimen unsatisfactory for evaluation, Weakly Positive Urine 12/09/2024 10:2 2 AM EDT Edel Moni DO POINT OF CARE TEST ENTER/MELINDA T ORDERABLES Final Result documented in this encounter Visit Diagnoses Diagnosis Vaginal discharge- Primary Leukorrhea, not specified as infective Nipple problem Other sign and symptom in breast documented in this encounter Additional Health Concerns Assessment Noted Time PHQ-9 Depression Total Score: 3 05/17/20 23 1:39 PM EDT documented as of this encounter Care Teams Crop Or Grain Farmer Relationship Specialty Start Date End Date Eli Kenny MD [address] [place] [address] PCP - General Internal Medicine 02/06/23 documented as of this encounter
--- OUTSIDE RECORDS SUMMARY | 2024-12-09 17:56 | XMS_ITS | Encounter Summary ---
Author Organization [facility] Address [address] [place] [address] Phone Care Team Providers Care Shredded Filler Cigar Maker Machine Name Role Phone Ericka Cheek MD Primary Care Provider [phone] Encounter Details Date Type Department Care Team (Late st Contact Info) Description 12/06/2010 Documentation EM Family Medicine [address] [place] [address] Family Medicine, Physician [address] [place], [place] [phone] Social History Tobacco Use Types Packs/Day Years [...] on filedocumented in this encounter Care Teams Shredded Filler Cigar Maker Machine Relationship Specialty Start Date End Date Ericka Cheek MD [address] [place] [address] [place] [address] PCP - General 04/12/17 02/28/23 documented as of this encounter
--- OUTSIDE RECORDS SUMMARY | 2024-12-09 17:56 | XMS_ITS | Encounter Summary ---
Author Organization [facility] Address [address] [place] [address] Phone Care Team Providers Care Plastic Parts Fabricator Trimmer Name Role Phone Ericka Cheek MD Primary Care Provider [phone] Encounter Details Date Type Department Care Team (Late st Contact Info) Description 04/18/2017 Conversion Encounter [facility] [address] [place] [address] Social History Tobacco Use Types Packs/Day Years [...] on filedocumented in this encounter Care Teams Plastic Parts Fabricator Trimmer Relationship Specialty Start Date End Date Ericka Cheek MD [address] [place] [address] PCP - General 04/12/17 02/28/23 documented as of this encounter
--- OUTSIDE RECORDS SUMMARY | 2024-12-09 17:56 | XMS_ITS | Encounter Summary ---
Author Organization [facility] Address [address] [place] [address] Phone Care Team Providers Care Senior Dynamics Crm Developer Name Role Phone Ericka Cheek MD Primary Care Provider [phone] Encounter Details Date Type Department Care Team (Late st Contact Info) Description 08/20/2011 Documentation EM Family Medicine [address] [place] [address] Family Medicine, Physician [address] [place], [place] [phone] Social History Tobacco Use Types Packs/Day Years [...] on filedocumented in this encounter Care Teams Senior Dynamics Crm Developer Relationship Specialty Start Date End Date Ericka Cheek MD [address] [place] [address] [place] [address] PCP - General 04/12/17 02/28/23 documented as of this encounter
--- OUTSIDE RECORDS SUMMARY | 2024-12-09 17:56 | XMS_ITS | Encounter Summary ---
Author Organization [facility] Address [address] [place] [address] Phone Care Team Providers Care Travel Rn Or Name Role Phone Ericka Cheek MD Primary Care Provider Encounter Details Date Type Department Care Team (Late st Contact Info) Description 12/16/2013 Documentation EM Family Medicine [address] [place] [address] Family Medicine, Physician [address] [place], [place] [phone] Social History Tobacco Use Types Packs/Day Years [...] on filedocumented in this encounter Care Teams Travel Rn Or Relationship Specialty Start Date End Date Ericka Cheek MD [address] [place] [address] [place] [address] PCP - General 04/12/17 02/28/23 documented as of this encounter
--- OUTSIDE RECORDS SUMMARY | 2024-12-09 17:56 | XMS_ITS | Encounter Summary ---
Author Organization [facility] Address [address] [place] [address] Phone Care Team Providers Care Airborne Operations Name Role Phone Ericka Cheek MD Primary Care Provider [phone] Encounter Details Date Type Department Care Team (Late st Contact Info) Description 02/21/2011 Documentation EM Family Medicine [address] [place] [address] Family Medicine, Physician [address] [place], [place] [phone] Social History Tobacco Use Types Packs/Day Years [...] on filedocumented in this encounter Care Teams Airborne Operations Relationship Specialty Start Date End Date Ericka Cheek MD [address] [place] [address] [place] [address] PCP - General 04/12/17 02/28/23 documented as of this encounter
[2024-12-10 09:39] LABS: CT PCR NOT DETECTED (Not Detect.); NG PCR NOT DETECTED (Not Detect.)
[2024-12-10 10:35] LABS: Bacterial Vaginosis PCR POSITIVE (Negative); Candida Group PCR NOT DETECTED (Not Detect); Candida glab krusei PCR NOT DETECTED (Not Detect); Trichomonas vaginalis PCR NOT DETECTED (Not Detect)
== END 2024-12-09 17:07 | disposition home or self-care (01) ==
LOC: HO.HHCLNP 17:06
PROVIDERS: Visit Provider Family Medicine
DX: N89.8 Other specified noninflammatory disorders of vagina (principal)
CPT/HCPCS: 81515; 87086; 87491; 87591

== ENCOUNTER 2025-02-01 13:07 | Outpatient (REF) | payer MEDICAID, SELFPAY ==
--- OUTSIDE RECORDS SUMMARY | 2025-02-01 14:11 | XMS_ITS | Encounter Summary ---
Author Organization [facility] Address [address] [place] [address] Phone Care Team Providers Care Side Stitching Machine Operator Name Role Phone Ericka Cheek MD Primary Care Provider [phone] Encounter Details Date Type Department Care Team (Late st Contact Info) Description 03/12/2012 Documentation EM Family Medicine [address] [place] [address] Family Medicine, Physician [address] [place], [place] [phone] Social History Tobacco Use Types Packs/Day Years [...] on filedocumented in this encounter Care Teams Side Stitching Machine Operator Relationship Specialty Start Date End Date Ericka Cheek MD [address] [place] [address] [place] [address] PCP - General 04/12/17 02/28/23 documented as of this encounter
[2025-02-01 15:12] LABS: CT PCR NOT DETECTED (Not Detect.); NG PCR NOT DETECTED (Not Detect.)
[2025-02-01 16:17] LABS: Bacterial Vaginosis PCR NEGATIVE (Negative); Candida Group PCR NOT DETECTED (Not Detect); Candida glab krusei PCR NOT DETECTED (Not Detect); Trichomonas vaginalis PCR NOT DETECTED (Not Detect)
[2025-02-01 17:16] LABS: HCG Quantitative < 2 mIU/mL
== END 2025-02-01 13:08 | disposition home or self-care (01) ==
LOC: HO.HHCL 13:07
PROVIDERS: Visit Provider Internal Medicine
DX: N64.4 Mastodynia (principal); N89.8 Other specified noninflammatory disorders of vagina
CPT/HCPCS: 36415; 81515; 84702; 87491; 87591

== ENCOUNTER 2025-03-12 15:41 | Outpatient (REF) | payer MEDICAID, SELFPAY ==
--- OUTSIDE RECORDS SUMMARY | 2025-03-12 15:43 | XMS_ITS | Encounter Summary ---
Author Organization [facility] Address [address] [place] [address] Phone Care Team Providers Care Stores Laborer Name Role Phone Ericka Cheek MD Primary Care Provider [phone] Encounter Details Date Type Department Care Team (Late st Contact Info) Description 03/12/2012 Documentation EM Family Medicine [address] [place] [address] Family Medicine, Physician [address] [place], [place] [phone] Social History Tobacco Use Types Packs/Day Years [...] on filedocumented in this encounter Care Teams Stores Laborer Relationship Specialty Start Date End Date Ericka Cheek MD [address] [place] [address] [place] [address] PCP - General 04/12/17 02/28/23 documented as of this encounter
--- OUTSIDE RECORDS SUMMARY | 2025-03-12 15:43 | XMS_ITS | Clinical Summary ---
Author Organization [employer] Address [address] [place] [address] Care Team Providers Care Greenhouse Transplanter Name Role Phone Eli Kenny MD Primary Care Pro vider Allergies No known active allergies Medications * This document contains information received from the source organization and may not represent a complete record from that organization. naproxen (Naprosyn) 500 MG tablet Take 1 tablet (500 mg) by mouth 2 times daily. 60 tablet 03/12/2025 Active Active Problems Problem Noted Date Diagnosed Date [...] from aunt PLAN: 1. Follow up with [facility]: Not recommended for follow-up 2. Patient goal is be connected with a therapist 3. Behavioral Recommendations a. Utilize coping skills provided b. Engage in OP therapy once established c. Reach out to [facility] for additional support Headache 05/18/2023 Encounters Date Type Department Care Team Description 03/12/2025 3:40 PM EDT Office Visit [facility] [address] [address] Gurdeep Haile MD STD exposure (Primary Dx) 03/12/2025 Travel 03/12/[address] [address] Eli Kenny MD Nurse Triage 02/10/2025 Telephone [facility] [address] [place] [address] Filemon Monge MD Lab Orders 02/08/2025 Orders Only [address] [address] Nurys Schuler RN 02/02/2025 Orders Only [facility] [address] [place] [address] Filemon Monge MD Breast tenderness in female (Primary Dx) 02/02/[address] [address] Eli Kenny MD Results 02/01/2025 9:40 AM EDT Office Visit [facility] [address] [address] Filemon Monge MD Breast tenderness in female (Primary Dx); Vaginal discharge 02/01/2025 Results Follow-Up [facility] [address] [place] [address] Filemon Monge MD POCT , urine manually resulted, Chlamydia/N. Gonorrhoeae RNA, TMA, Urogenitial, Bacterial Vaginosis, hCG, Total, Quantitative 12/15/[address] [address] Eli Kenny MD Nurse Triage from Last 3 Months Immunizations Immunization Administration Dates Next Due DTP 03/01/1995, 4,01/10/1994,10/24 [...] with others, in a hotel, in a skilled nursing, living outside on the street, on a [...] Sign Reading Time Taken Comments Blood Pressure 116/75 03/12/2025 3:20 PM EDT Pulse 83 03/12/2025 3:20 PM EDT Temperature 37 C (98.6 F) 03/12/2025 3:20 PM EDT Respiratory Rate 18 03/12/2025 3:20 PM EDT Oxygen Saturation 98% 03/12/2025 3:20 PM EDT Inhaled Oxygen Concentration - - Weight 59.4 kg (131 lb) 03/12/2025 3:20 PM EDT Height 149.9 cm (4' 11 ) 12/09/2024 10:14 AM EDT Body Mass Index 26.46 12/09/2024 10:14 AM EDT Plan of Treatment Health Maintenance Due Date Last Done Comments Disability Screening 1995 Alcohol/Substance Use Screening 2005 Dental Oral Exam 08/26/2009 02/23/2009 Dental Prophylaxis 06/27/2012 12/26/2011, 0 09/21/2011, 04/17/2011, Additional history exists Pneumococcal Vaccine: Pediatrics (0 to 5 Years) and At-Risk Patients (6 to 49) Years (1 of 2 - PCV) 2012 COVID-19 Vaccine ( - season) 2024 Depression Screening 05/17/2024 05/17/2023, 05/17/20 Dental X-Ray: Bitewings 07/17/2024 07/16/20, 10/02/2013, 09/21/2011, Additional history exists Dental X-Ray: Full Mouth 04/07/2025 04/06/2022, 06/03 Influenza Vaccine (#1) 2025 , 05/17/2023, 05/29/2016, Additional history exists Family Planning (PISQ) 10/01/2025 10/01/2024 SDOH Screening 11/23/2025 11/23/2024 Tobacco Screening 02/01/2026 02/01/2025 DTaP/Tdap/Td Vaccines (9 - Td or Tdap) [...] Completed 11/30/2013, 08/01/1994, 1993, Additional history exists HIV Screening Completed 02/01/2025, 07/04, 07/23/2024, Additional history exists Hepatitis C Screening Completed 02/01/2025 , 07/23/2024, 09/04/2023, Additional history exists Hepatitis A Vaccines Aged Out No long er eligible based on patient's age to complete this topic Meningococcal B Vaccine Aged Out No l onger eligible based on patient's age to complete this topic RSV under 20 months Aged Out No longe r eligible based on patient's age to complete this topic Rotavirus Vaccines Aged Out No longer eligible based on patient's age to complete this topic Procedures Procedure Name Priority Date/Time Associated Diagnosis Comments POCT URINALYSIS DIPSTICK Routine 03/12/2025 3:32 PM EDT STD exposure HCG, TOTAL, QN Routine 02/01/2025 1:08 PM EDT Vaginal discharge Breast tenderness in female POCT , URINE Routine 02/01/2025 9:50 AM EDT Vaginal discharge CHLAMYDIA/N. GONORRHOEAE RNA, TMA, UROGENITAL Routine 02/01/2025 9:43 AM EDT Vaginal discharge BACTERIAL VAGINOSIS PANEL Routine 02/01/2025 9:43 AM EDT Vaginal discharge HIV ANTIBODY/ANTIGEN ([place] DPH) Routine 02/01/2025 HEPATITIS C ANTIBODY ([place] DPH) Routine 02/01/2025 SYPHILIS ABS ([place] DPH) Routine 02/01/2025 HPV DNA, LOW/HIGH RISK Routine 10/01/2024 11:36 AM EST PAP SMEAR Routine 10/01/2024 11:36 AM EST Cervical cancer screening LIPID PANEL, STANDARD Routine 09/04/2023 12:18 PM [...] Results * POCT urinalysis dipstick manually resulted (03/12/2025 3:32 PM EDT) Color, UA Yellow Clarity, UA Clear Glucose, UA Negative Bilirubin, UA Trace Comment:small Ketones, UA Positive Comment:trace Spec Grav, UA 1.025 Blood, UA Negative Negative, None Detected pH, UA 6.0 Protein, UA Negative Urobilinogen, UA 0.2 Leukocytes, UA Negative Negative, Rare, Trace Nitrite, UA Negative Negative, None Detected Urine 03/12/2025 3:32 PM EDT Gurdeep Vogel MD POINT OF CARE TEST ENTER/EDIT ORDERABLES Final Result * hCG, Total, Quantitative (02/01/2025 1:08 PM EDT) HCG Quantitative <2 mIU/mL [facility] Comment:Weeks post LMP Appro ximate hCG(Last Menstrual Period) Range (mIU/ml)3 - 4 weeks 9 - 1304 - 5 weeks 75 - 2,6005 - 6 weeks 850 - 20,8006 - 7 weeks 4000 - 100,2007 - 12 weeks 11,500 - 289,82297 - 16 weeks 18,300 - 137,86849 - 29 weeks (2nd trimester) 1,400 - 53,34373 - 41 weeks (3rd trimester) 940 - 60,000The Pedroza B- hCG assay is used for the early detection ofpregnancy; it cannot be used to diagnose any conditionunrelated to . If a B-hCG level is not supportedby the clinical evidence, results should be confirmed by analternative method (qualitative urine hCG, for example). Blood Venous blood specimen / Unknown 02/01/2025 1:08 PM EDT 02/01/2025 4:04 PM EDT Filemon Monge MD LAB BLOOD ORDERABLES Final Result [facility] [address] [place] [phone] * POCT , urine manually resulted (02/01/2025 9:50 AM EDT) Preg Test, Ur Negative Negative, Indeterminate, None Detected, Invalid, Specimen unsatisfactory for evaluation, Weakly Positive, 2+ Urine 02/01/2025 9:50 AM EDT Filemon Monge MD POINT OF CARE TEST ENTER/ED IT ORDERABLES Final Result * Bacterial Vaginosis (02/01/2025 9:43 AM EDT) TRICHOMONAS VAGINALIS DETECTION BY PCR NOT DETECTED Not Detect [facility] BACTERIAL VAGINOSIS DETECTION BY PCR NEGATIVE Negative [facility] Comment:The BV organism targ ets [...] DETECTION BY PCR NOT DETECTED Not Detect [facility] Nadiya glab krusei PCR NOT DETECTED Not Detect [facility] Swab Vaginal structure / Unknown 02/01/2025 9:43 AM EDT 02/01/2025 1:28 PM EDT us Filemon Monge MD LAB MICROBIOLOGY - GENERAL ORDERABLES Final Result [facility] [address], [place] [phone] * Chlamydia/N. Gonorrhoeae RNA, TMA, Urogenitial (02/01/2025 9:43 AM EDT) CT PCR NOT DETECTED Not Detect. [facility] Comment:A not detected test result [...] psychologicalconsequences. NG PCR NOT DETECTED Not Detect. [facility] Comment:A not detected test result [...] medical, social or psychologicalconsequences. Urine (Urine, Random) 02/01/2025 9:43 AM EDT 02/01/2025 1:28 PM EDT Narrative [facility] - 02/01/2025 3:13 PM EDT Urine Filemon Monge MD LAB MICROBIOLOGY - GENERAL ORDERABLES Final Result [facility] [address] [facility] [place] [address] [phone] * Syphilis Antibodies (DPH) (02/01/2025) Syphilis Abs Nonreactive Borderline, Nonreactive, Weakly Reactive, Inconclusive, Specimen unsatisfactory for evaluation Blood Venous blood specimen / Unknown 02/01/2025 Result [facility] Provider LAB BLOOD ORDERABLES Shruti l Result * Hepatitis C Antibody ([facility]) (02/01/2025) Hepatitis C Ab Nonreactive Blood 02/01/2025 Result [facility] Provider LAB BLOOD ORDERABLES Shruti l Result * HIV Ab/Ag ([facility]) (02/01/2025) HIV Ag/Ab Nonreactive Blood 02/01/2025 Result [facility] Provider LAB BLOOD ORDERABLES Edit ed Result - Final * HPV DNA, Low/High Risk (10/01/2024 11:36 AM EST) HPV High Risk Negative Negative [facility] HPV Genotype 16 Negative Negative [facility] HPV Genotype 18 Negative Negative [facility] Comment:HPV testing performe d at [facility] (CLIA#[id number]), [address] [place] [address].Testing for HPV was performed using the Annette [...] 6 AM EST 10/02/2024 7:24 AM EST Trent MONTES LAB BLOOD ORDERABLES Shruti l Result [facility] [address] [place] [phone] * Pap Smear (10/01/2024 11:36 AM EST) Swab Cervix uteri structure / Unknown 10/01/2024 11:36 AM EST 10/02/2024 6:30 AM EST [facility] - 10/13/2024 12:29 PM EST ----- ------- Name: Cadence Medrano Age/Sex: 29/F : 1995 Unit#: [id number] Attend Dr: TRENT MADRIGAL CNM Re10/01/24 Status: DEP REF Location: HO.HHCLNP Disch: ----- ------- SPEC : [id number] RECD: 10/02/24 STATUS: KAROL SPRINGER NUM: [id number] THEODORE: 10/01/24-[address] [facility] [address]: TRENT MADRIGAL CNM ENTERED: 10/02/24 SP TYPE: Pap Smr OTHR DR: ORDERED: Pap Smear Interpretation Satisfactory for evaluation. Negative for intraepithelial lesion or malignancy. No endocervical cells seen. Coccobacilli consistent with shift in vaginal ricardo. HPV High Risk: Negative HPV Genotyping 16: Negative HPV Genotyping 18: Negative Clinical Information LMP: Previous PAP test: Unk Other surgery: Other history: Material Received ThinPrep-Cervical ----- ------- Signed (signature on file) VINAY Mcclain (ASCP) 10/13/24 1229 ----- ------- END OF REPORT us Trent MONTES LAB CYTOLOGY ORDERABLES F inal Result [facility] [address] [place] [phone] * (ABNORMAL) Lipid Panel, Standard (09/04/2023 12:18 PM EST) Triglycerides 117 <150 mg/dL [facility] Comment:Desirable Triglyceri de: less than 150 mg/dLBorderline High Triglyceride 150-199 mg/dLHigh Triglyceride: 200-499 mg/dLVery High Triglyceride: greater than or equal to 5OO mg/dL Cholesterol 186 <200 mg/dL [facility] Comment:Desirable Cholestero l: less than 200 mg/dLBorderline High Cholesterol: 200-239 mg/dLHigh Cholesterol: greater than 239 mg/dL LDL Cholesterol Calculated 122(H) <100 mg/dL [facility] Comment:Desirable LDL: less than 100 mg/dLNear Optimal/Above Optimal LDL: 110- 129 mg/dLBorderline High LDL: 130-159 mg/dLHigh LDL: 160-189 mg/dLVery High LDL: greater than or equal to 190 mg/dL HDL Cholesterol 41 >40 mg/dL [facility] Comment:Desirable HDL: great er than 40 mg/dL Note: This HDL assay may give artificially low results in patients with liver disease. Blood Venous blood specimen / Unknown 09/04/2023 12:18 PM EST 09/04/2023 1:10 PM EST us Eli Tejada MD LAB BLOOD ORDERAB LES Final Result [facility] [address] [place] [address] [phone] from Last 3 Months or Most Recently Relevant to Health Maintenance [place] [address] [place] [address] C[employer] [facility] MEDICAID STAND ADULT Care Teams Greenhouse Transplanter Relationship Specialty Start Date End Date Eli Kenny MD [address] [place] [phone] PCP - General Internal Medicine 02/06/23
[2025-03-12 21:45] LABS: Bacterial Vaginosis PCR POSITIVE (Negative); Candida Group PCR NOT DETECTED (Not Detect); Candida glab krusei PCR NOT DETECTED (Not Detect); Trichomonas vaginalis PCR NOT DETECTED (Not Detect)
[2025-03-12 22:16] LABS: CT PCR NOT DETECTED (Not Detect.); NG PCR NOT DETECTED (Not Detect.)
[2025-03-13 08:27] LABS: Syphilis Screen Nonreactive (Nonreactive)
[2025-03-13 08:41] LABS: HIV Num 1 0.06 S/CO (0.00-0.99); ~HepC Num1 0.11 S/CO (0.00-0.79); ~Hepatitis C Antibody Nonreactive (Nonreactive)
== END 2025-03-12 15:42 | disposition home or self-care (01) ==
LOC: HO.HHCL 15:41
PROVIDERS: Internal Medicine; PCP Internal Medicine; Visit Provider Internal Medicine
DX: N64.4 Mastodynia (principal); Z20.2 Contact with and (suspected) exposure to infections with a predominantly sexual mode of transmission
CPT/HCPCS: 36415; 81515; 84702; 86780; 86803; 87086; 87389; 87491; 87591

== ENCOUNTER 2025-03-16 16:54 | Outpatient (REF) | payer MEDICAID, SELFPAY ==
--- OUTSIDE RECORDS SUMMARY | 2025-03-16 16:56 | XMS_ITS | Clinical Summary ---
Author Organization [employer] Address [address] [place] [address] Care Team Providers Care Network Engineer Administrator Name Role Phone Eli Kenny MD Primary Care Pro vider Allergies No known active allergies Medications * This document contains information received from the source organization and may not represent a complete record from that organization. naproxen (Naprosyn) 500 MG tablet Take 1 tablet (500 mg) by mouth 2 times daily. 60 tablet 03/12/2025 04/11/20 25 Active metroNIDAZOLE (Flagyl) 500 MG tablet Take 1 tablet (500 mg) by mouth 2 times daily for 7 days. 14 tablet 03/15/2025 03/22/20 25 Active lidocaine (Xylocaine) 5 % ointment Apply up to 5 times a day as needed to affected area 30 g 03/16/2025 Active valACYclovir (Valtrex) 1 g tablet Take 1 tablet (1,000 mg) by mouth 2 times daily for 7 days. 14 tablet 03/16/2025 03/23/20 25 Active Active Problems Problem Noted Date Diagnosed [...] aunt PLAN: 1. Follow up with [facility]: Not recommended for follow-up 2. Patient goal is be connected with a therapist 3. Behavioral Recommendations a. Utilize coping skills provided b. Engage in OP therapy once established c. Reach out to [facility] for additional support Headache 05/18/2023 Encounters Date Type Department Care Team Description 03/16/2025 10:00 AM EDT Office Visit [address] [address] Trent Madrigal CNM Ulcer of perianal area, unspecified ulcer stage (CMS/HCC) (Primary Dx) 03/16/2025 Travel 03/15/[address] [address] Trent Madrigal CNM chart prep 03/15/2025 Results Follow-Up [facility] [address] [place] [address] Gurdeep Haile MD POCT urinalysis dipstick manually resulted, Bacterial Vaginosis Panel, Chlamydia/N. Gonorrhoeae RNA, TMA, Urogenitial, Additional followed-up results: 4 03/15/[address] [address] Eli Kenny MD Nurse Triage 03/15/[address] [address] Eli Kenny MD Results 03/12/2025 3:40 PM EDT Office Visit [facility] [address] [place] [address] Gurdeep Haile MD STD exposure (Primary Dx) 03/12/2025 Travel 03/12/[address] [address] Eli Kenny MD Nurse Triage 02/10/2025 Telephone [facility] [address] [place] [address] Filemon Monge MD Lab Orders 02/08/2025 Orders Only [address] [address] Nurys Schuler, JESÚS 02/02/2025 Orders Only [facility] [address] [place] [address] Filemon Monge MD Breast tenderness in female (Primary Dx) 02/02/[address] [address] Eli Kenny MD Results 02/01/2025 9:40 AM EDT Office Visit [facility] [address] [place] [address] Filemon Monge MD Breast tenderness in female (Primary Dx); Vaginal discharge 02/01/2025 Results Follow-Up [facility] [address] [place] [address] Filemon Monge MD POCT , urine manually resulted, Chlamydia/N. Gonorrhoeae RNA, TMA, Urogenitial, Bacterial Vaginosis, hCG, Total, Quantitative 12/15/[address] [address] Eli Kenny MD Nurse Triage from Last [...] Date Recorded Patient Health Questionnaire-9 Score 3 03/16/2025 Patient Health Questionnaire-9 Score 3 03/16/2025 Last PHQ-9: Questionnaire Data Not on file 0 03/16/2025 Housing Stability Answer Date Recorded What is your housing situation today? I do not have housing (Staying with others, in a hotel, in a prison, living outside on the street, on a [...] Date Recorded Patient Health Questionnaire-2 Score 1 03/16/2025 Internet Access Answer Date Recorded Internet Access Q1 Yes 11/23/2024 Internet Access Q2 Not on file 11/23/2024 Comments No Intention Date Recorded No desire to become (finding) 0 03/16/2025 Sex and Gender Information Value Date Recorded Sex Assigned at Female 07/02/2022 10:24 AM EDT Legal Sex Female 10:24 AM EDT Gender Identity Female 07/02/2022 10:24 AM EDT Sexual Orientation Straight 07/02/2022 10 :24 AM EDT Last Filed Vital Signs Vital Sign Reading Time Taken Comments Blood Pressure 110/75 03/16/2025 10:11 AM EDT Pulse 81 03/16/2025 10:11 AM EDT Temperature 37 C (98.6 F) 03/12/2025 3:20 PM EDT Respiratory Rate 20 03/16/2025 10:11 AM EDT Oxygen Saturation 98% 03/12/2025 3:20 PM EDT Inhaled Oxygen Concentration - - Weight 59.4 kg (131 lb) 03/16/2025 10:11 AM EDT Height 149.9 cm (4' 11 ) 03/16/2025 10:11 AM EDT Body Mass Index 26.46 03/16/2025 10:11 AM EDT Plan of Treatment Health Maintenance Due Date Last Done Comments Dental Oral Exam 08/26/2009 02/23/2009 Dental Prophylaxis 06/27/2012 12/26/2011, 0 09/21/2011, 04/17/2011, Additional history exists Pneumococcal Vaccine: Pediatrics (0 to 5 Years) and At-Risk Patients (6 to 49) Years (1 of 2 - PCV) 2012 COVID-19 Vaccine ( - 2023- season) 2024 Dental X-Ray: Bitewings 07/17/2024 07/16/20, 10/02/2013, 09/21/2011, Additional history exists Dental X-Ray: Full Mouth 04/07/2025 04/06/2022, 06/03 Influenza Vaccine (#1) 2025 , 05/17/2023, 05/29/2016, Additional history exists SDOH Screening 11/23/2025 11/23/2024 Alcohol/Substance Use Screening 03/16/2026 03/16/2025 Depression Screening 03/16/2026 03/16/2025, 03/16/20 Disability Screening 03/16/2026 03/16/2025 Family Planning (PISQ) 03/16/2026 03/16/2025 Tobacco Screening 03/16/2026 03/16/2025 DTaP/Tdap/Td Vaccines (9 - Td or Tdap) [...] 1995, Additional history exists HIV Screening Completed 03/12/2025, 06/0 10/2024, 07/23/2024, Additional history exists Hepatitis C Screening Completed 03/12/2025 , 02/01/2025, 07/23/2024, Additional history exists Hepatitis A Vaccines Aged [...] Procedure Name Priority Date/Time Associated Diagnosis Comments SYPHILIS SCREEN Routine 03/12/2025 3:46 PM EDT STD exposure HEPATITIS C AB W/REFL TO HCV RNA, QN, PCR Routine 03/12/2025 3:46 PM EDT STD exposure HIV 1/2 ANTIGEN/ANTIBODY, FOURTH GENERATION W/RFL Routine 03/12/2025 3:46 PM EDT STD exposure HCG, TOTAL, QN Routine 03/12/2025 3:46 PM EDT Breast tenderness in female CULTURE, URINE, ROUTINE Routine 03/12/2025 3:35 PM EDT STD exposure CHLAMYDIA/N. GONORRHOEAE RNA, TMA, UROGENITAL Routine 03/12/2025 3:35 PM EDT STD exposure BACTERIAL VAGINOSIS PANEL Routine 03/12/2025 3:35 PM EDT STD exposure POCT URINALYSIS DIPSTICK Routine 03/12/2025 3:32 PM [...] Recently Relevant to Health Maintenance Results * Syphilis Screen (03/12/2025 3:46 PM EDT) Syphilis Screen Nonreactive Nonreactive [facility] Blood 03/12/2025 3:46 PM EDT 03/12/2025 5:31 PM EDT Gurdeep Vogel MD LAB BLOOD ORDERABL ES Final Result [facility] [address] [place] [phone] * Hepatitis C Antibody with Reflex to HCV, RNA, Quantitative, Real-Time PCR (03/12/2025 3:46 PM EDT) Hepatitis C Antibody Nonreactive Nonreactive [facility] Comment:Antibodies to HCV no t detected; does not exclude early acuteHCV infection. Blood Venous blood specimen / Unknown 03/12/2025 3:46 PM EDT 03/12/2025 5:31 PM EDT Gurdeep Vogel MD LAB BLOOD ORDERABL ES Final Result Performing Organization Address [facility]/ZIP Co de Phone Number [facility] [address] [place] [phone] * HIV-1/2 Antigen and Antibodies, Fourth Generation, with Reflexes (03/12/2025 3:46 PM EDT) HIV AB/AG Nonreactive Nonreactive [facility] Comment:HIV-1 p24 Ag and/or HIV-1/HIV-2 Ab not detected.A test result that is nonreactive does not exclude thepossibility of exposure to or infection with HIV-1 and/orHIV-2. Nonreactive results in this assay for individualswith prior exposure to HIV-1 and/or HIV-2 may be due toantigen and antibody levels that are below the limit ofdetection of this assay.The ZIRX HIV Ag/Ab Combo assay result andsupplemental assay results should be interpreted inconjunction with the patient's clinical presentation,history and other laboratory results. If the results areinconsistent with clinical evidence, additional testing issuggested to confirm the result. Blood Venous blood specimen / Unknown 03/12/2025 3:46 PM EDT 03/12/2025 5:31 PM EDT Gurdeep Vogel MD LAB BLOOD ORDERABL ES Final Result Performing Organization Address [facility]/ZIP Co de Phone Number [facility] [address] [place] [phone] * hCG, Total, Quantitative (03/12/2025 3:46 PM EDT) Only the most recent of2 resultswithin the time period is included. HCG Quantitative <2 mIU/mL [facility] Comment:Weeks post LMP Appro ximate hCG(Last Menstrual Period) Range (mIU/ml)3 - 4 weeks 9 - 1304 - 5 weeks 75 - 2,6005 - 6 weeks 850 - 20,8006 - 7 weeks 4000 - 100,2007 - 12 weeks 11,500 - 289,33769 - 16 weeks 18,300 - 137,65520 - 29 weeks (2nd trimester) 1,400 - 53,50209 - 41 weeks (3rd trimester) 940 - 60,000The Pedroza B- hCG assay is used for the early detection ofpregnancy; it cannot be used to diagnose any conditionunrelated to . If a B-hCG level is not supportedby the clinical evidence, results should be confirmed by analternative method (qualitative urine hCG, for example). Blood Venous blood specimen / Unknown 03/12/2025 3:46 PM EDT 03/12/2025 5:31 PM EDT us Filemon Monge MD LAB BLOOD ORDERABLES Final Result [facility] [address] [place] [phone] * (ABNORMAL) Bacterial Vaginosis Panel (03/12/2025 3:35 PM EDT) Only the most recent of2 resultswithin [...] HOSPITAL LABS Swab Vaginal structure / Unknown 03/12/2025 3:35 PM EDT 03/12/2025 5:33 PM EDT Gurdeep Vogel MD LAB MICROBIOLOGY - GENERAL ORDERABLES Final Result [facility] [address] [place] [phone] * Chlamydia/N. Gonorrhoeae RNA, TMA, Urogenitial (03/12/2025 3:35 PM EDT) Only the most recent of2 resultswithin the time period is included. CT PCR NOT DETECTED Not Detect. [facility] Comment:A not detected test result [...] psychologicalconsequences. NG PCR NOT DETECTED Not Detect. [facility] Comment:A not detected test result [...] or psychologicalconsequences. Swab Vaginal structure / Unknown 03/12/2025 3:35 PM EDT 03/12/2025 5:33 PM EDT Gurdeep Vogel MD LAB MICROBIOLOGY - GENERAL ORDERABLES Final Result Performing Organization Address City/[facility]/ZIP Co de Phone Number [facility] [address] [place] [phone] * Culture, Urine, Routine (03/12/2025 3:35 PM EDT) Urine Urine specimen obtained by clean catch procedure / Unknown 03/12/2025 3:35 PM EDT 03/12/2025 5:33 PM EDT Comment:UACC Narrative [facility] - 03/14/2025 1:16 PM EDT Urine Culture No growth. Specimen Source: Urine clean catch Gurdeep Vogel MD LAB MICROBIOLOGY - GENERAL ORDERABLES Final Result Performing Organization Address [facility] Co de Phone Number [facility] [address] [place] [phone] * POCT urinalysis dipstick manually resulted (03/12/2025 [...] Result * POCT , urine manually resulted (02/01/2025 9:50 AM EDT) Preg Test, Ur Negative Negative, Indeterminate, None Detected, Invalid, Specimen unsatisfactory for evaluation, Weakly Positive, 2+ Urine 02/01/2025 9:50 AM EDT Filemon Monge MD POINT OF CARE TEST ENTER/ED IT ORDERABLES Final Result * Syphilis Antibodies (DPH) (02/01/2025) Syphilis Abs Nonreactive Borderline, Nonreactive, Weakly Reactive, Inconclusive, Specimen unsatisfactory for evaluation Blood Venous blood specimen / Unknown 02/01/2025 [facility] Provider LAB BLOOD ORDERABLES Shruti l Result * Hepatitis C Antibody ([facility]) (02/01/2025) Pathologist [facility] Hepatitis C Ab Nonreactive Blood 02/01/2025 [facility] Provider LAB BLOOD ORDERABLES Shruti l Result * HIV Ab/Ag ([facility]) (02/01/2025) Pathologist [facility] HIV Ag/Ab Nonreactive Blood 02/01/2025 Historical Provider LAB BLOOD ORDERABLES Edit ed Result - Final * HPV DNA, Low/High Risk (10/01/2024 11:36 AM EST) Pathologist [facility] HPV High Risk Negative Negative [facility] HPV Genotype 16 Negative Negative [facility] HPV Genotype 18 Negative Negative [facility] Comment:HPV testing performe d at [facility] (CLIA#[id number]), [address] [place] [address].Testing for HPV was performed using the Annette [...] AM EST 10/02/2024 7:24 AM EST Trent Madrigal CNM LAB BLOOD ORDERABLES Shruti sullivan Result [facility] [address] [place] [phone] * Pap Smear (10/01/2024 11:36 AM EST) Swab Cervix uteri structure / Unknown 10/01/2024 11:36 AM EST 10/02/2024 6:30 AM EST [facility] - 10/13/2024 12:29 PM EST ----- ------- Name: MitchellCadence Age/Sex: 29/F : 1995 Unit#: [id number] Attend Dr: TRENT MADRIGAL CNM Re10/01/24 Status: DEP REF Location: [facility] Disch: ----- ------- SPEC : [id number] RECD: 10/02/24 STATUS: KAROL SPRINGER NUM: [id number] THEODORE: 10/01/24-[address] [facility] [address]: TRENT MADRIGAL CNM ENTERED: 10/02/24 SP [...] ----- ------- END OF REPORT us Trent Madrigal CNM LAB CYTOLOGY ORDERABLES F inal Result [facility] [address] [place] [phone] * (ABNORMAL) Lipid Panel, Standard (09/04/2023 12:18 PM EST) Triglycerides 117 <150 mg/dL [facility] Comment:Desirable Triglyceri de: less than 150 mg/dLBorderline High Triglyceride 150-199 mg/dLHigh Triglyceride: 200-499 mg/dLVery High Triglyceride: greater than or equal to 5OO mg/dL Cholesterol 186 <200 mg/dL [facility] Comment:Desirable Cholestero l: less than 200 mg/dLBorderline High Cholesterol: 200-239 mg/dLHigh Cholesterol: greater than 239 mg/dL LDL Cholesterol Calculated 122(H) <100 mg/dL [facility] Comment:Desirable LDL: less than 100 mg/dLNear Optimal/Above Optimal LDL: 110- 129 mg/dLBorderline High LDL: 130-159 mg/dLHigh LDL: 160-189 mg/dLVery High LDL: greater than or equal to 190 mg/dL HDL Cholesterol 41 >40 mg/dL [facility] Comment:Desirable HDL: great er than 40 mg/dL Note: This HDL assay may give artificially low results in patients with liver disease. Blood Venous blood specimen / Unknown 09/04/2023 12:18 PM EST 09/04/2023 1:10 PM EST Eli Tejada MD LAB BLOOD ORDERAB LES Final Result [facility] [address], [place] [phone] from Last 3 Months or Most Recently Relevant to Health Maintenance Insurance [facility] C3 DENTAL-[facility] MEDICAID STAND ADULT Care Teams Network Engineer Administrator Relationship Specialty Start Date End Date Eli Kenny MD [address] [place] [phone] PCP - General Internal Medicine 02/06/23
--- OUTSIDE RECORDS SUMMARY | 2025-03-16 16:56 | XMS_ITS | Encounter Summary ---
Author Organization [facility] Address [address] [place] [phone] Phone Care Team Providers Care Tile Trimmer Name Role Phone Ericka Cheek MD Primary Care Provider [phone] Encounter Details Date Type Department Care Team (Late st Contact Info) Description 03/12/2012 Documentation EM Family Medicine [address] [place] [address] Family Medicine, Physician [address] [place], [place] [phone] Social History Tobacco Use Types Packs/Day Years [...] on filedocumented in this encounter Care Teams Tile Trimmer Relationship Specialty Start Date End Date Ericka Cheek MD [address] [place] [address] [place] [id number] PCP - General 04/12/17 02/28/23 documented as of this encounter
== END 2025-03-16 16:55 | disposition home or self-care (01) ==
LOC: HO.HHCLNP 16:54
PROVIDERS: Visit Provider Advanced Practice Midwife
DX: L98.499 Non-pressure chronic ulcer of skin of other sites with unspecified severity (principal)
CPT/HCPCS: 36415; 87255

== ENCOUNTER 2025-03-24 08:58 | Outpatient (REF) | payer MEDICAID, SELFPAY ==
--- OUTSIDE RECORDS SUMMARY | 2025-03-24 09:24 | XMS_ITS | Encounter Summary ---
Author Organization [facility] Address [address] [place] [phone] Phone Care Team Providers Care Cloth Bin Packer Name Role Phone Ericka Cheek MD Primary Care Provider [phone] Encounter Details Date Type Department Care Team (Late st Contact Info) Description 03/12/2012 Documentation EM Family Medicine [address] [place] [address] Family Medicine, Physician [address] [place], [place] [phone] Social History Tobacco Use Types Packs/Day Years [...] on filedocumented in this encounter Care Teams Cloth Bin Packer Relationship Specialty Start Date End Date Ericka Cheek MD [address] [place] [address] [place] [phone] PCP - General 04/12/17 02/28/23 documented as of this encounter
[2025-03-24 11:23] LABS: Appearance Urine Clear; Glucose Urine UA Negative (Negative); PH 5.5 (5.0-9.0); Specific Gravity - Urine 1.025 (1.005-1.025); UMIC TRIGGER UA YES
[2025-03-24 11:54] LABS: Syphilis Screen Nonreactive (Nonreactive)
[2025-03-24 11:59] LABS: HIV Num 1 0.05 S/CO (0.00-0.99); ~HepC Num1 0.11 S/CO (0.00-0.79); ~Hepatitis C Antibody Nonreactive (Nonreactive)
== END 2025-03-24 08:59 | disposition home or self-care (01) ==
LOC: HO.HHCL 08:58
PROVIDERS: Internal Medicine; Registered Nurse; PCP Internal Medicine; Visit Provider Advanced Practice Midwife
DX: Z11.3 Encounter for screening for infections with a predominantly sexual mode of transmission (principal); Z11.4 Encounter for screening for human immunodeficiency virus [HIV]; Z11.59 Encounter for screening for other viral diseases; N89.8 Other specified noninflammatory disorders of vagina; L98.499 Non-pressure chronic ulcer of skin of other sites with unspecified severity
CPT/HCPCS: 36415; 81001; 86695; 86696; 86780; 86803; 87389

== ENCOUNTER 2025-04-27 18:50 | Outpatient (REF) | payer MEDICAID, SELFPAY ==
--- OUTSIDE RECORDS SUMMARY | 2025-04-24 19:19 | XMS_ITS | Encounter Summary ---
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 Name Role Phone Stacey Nayak NP Primary Care Provider [phone] Reason for Visit * Reason Comments Headache Encounter Details Date Type Department Care Team (Late st Contact Info) Description 04/24/2025 7:19 PM EDT - 04/24/2025 10:06 PM EDT Emergency [facility] Emergency [address] [place] [address] Tanvir Durand MD [address] [place] [address] Migraine without aura and without status migrainosus, not intractable (Primary Dx) Discharge Disposition: Home or Self Care Social History Tobacco Use Types Packs/Day Years Used Date Smoking Tobacco: Light Smoker Smokeless Tobacco: Never Alcohol Use Standard Drinks/Week Comments No 0 (1 standard drink = 0.6 oz pur e alcohol) Comments Unknown Sex and Gender Information Value Date Recorded Sex Assigned at Not on file Legal Sex Female 5:38 AM EST Gender Identity Not on file Sexual Orientation Not on file documented as of this encounter Last Filed Vital Signs Vital Sign Reading Time Taken Comments Blood Pressure 111/84 04/24/2025 6:43 PM EDT Pulse 83 04/24/2025 6:43 PM EDT Temperature 36.8 C (98.2 F) 04/24/2025 6:43 PM EDT Respiratory Rate 16 04/24/2025 6:43 PM EDT Oxygen Saturation 100% 04/24/2025 7:56 PM EDT Inhaled Oxygen Concentration - - Weight 59.4 kg (131 lb) 04/24/2025 6:43 PM EDT Height 149.9 cm (4' 11 ) 04/24/2025 6:43 PM EDT Body Mass Index 26.46 04/24/2025 6:43 PM EDT documented in this encounter Discharge Instructions * Discharge Instructions* Tanvir Durand MD - 04/24/2025 9:41 PM EDT Please return to the emergency department if you have worsening or continued headache, blurry vision, uncontrollable nausea/vomiting, fevers, numbness/weakness in your extremities, incontinence of stool or urine, inability to urinate, numbness/tingling around your rectum/genetalia, or if you have a change in the symptoms you are currently having. * Attachments The following attachments cannot be sent through Care Everywhere. * Migraine Headache (Irish) documented in this encounter Discharge Disposition Disposition Code Departure Means Destination Comment s Home or Self Care documented in this encounter Progress Notes * Aissatou Hernandez RN - 04/24/2025 9:00 PM EDT Pt c/o b/l leg cramping that comes and goes. Asked provider if he would like magnesium level checked on this pt d/t the b/l leg cramping. Provider approved. Ordered magnesium as an add on. * Vidya Matthews RN - 04/24/2025 6:40 PM EDT Pt comes to ER with c/o frontal area to her neck for the last 2 days. Pt states she can take ibuprofen with temporary relief of her symptoms but they have not resolved. Pt states she has a hx of migraines but they typically break on their own. Pt a&ox4, ambulatory with steady gait in triage. * Tanvir Durand MD - 04/24/2025 6:36 PM EDT Images from the original note were not included. EMERGENCY MEDICINE PROVIDER NOTE Patient Name: Cadence Medrano : 1995 Provider: Tanvir Durand MD Chief Complaint: Chief Complaint Patient presents with Headache History of Present Illness: 29-year-old female with a past medical history significant for migraines presents with headache. For the past 2 days patient has been having a headache that is described as a fairly typical migraine,however the pain is not going away. Typically patient will take Motrin and Tylenol and the migraines will resolve, however has been ongoing. Describes as a pounding sensation in the front of the headwith radiation into the back. Did have some blurry vision yesterday that has subsequently improved.Migraine initially started 2 days ago. Was initially doing better earlier today, however after taking a nap woke up with a continued migraine. No trauma or recent travel. No injuries. Denies any associated chest pain, shortness of breath, nausea, vomiting, diarrhea. Does describe some lower abdominal cramping sensation with some associated cramping in the upper legs bilaterally. No numbness or tingling in the extremities or weakness in the extremities. No fevers or chills. Denies any pain or burning with urination. Patient did just recently have her menstrual cycle that ended yesterday. Patient states she does not typically have cramping in the lower abdomen after her menstrual cycle or during headaches. Past Medical History: Diagnosis Date Essential hypertension DX:Essential hypertension History of tonsillectomy DX:History of tonsillectomy Venereal disease DX:Venereal disease Past Surgical History: Procedure Laterality Date SECTION PROCEDURE: DC DELIVERY ONLY OTHER SURGICAL HISTORY PROCEDURE: ---- OTHER ----; COMMENT: ear surgeries TONSILLECTOMY PROCEDURE: HISTORICAL TONSILLECTOMY No family history on file. Social History Tobacco Use Smoking status: Light Smoker Smokeless tobacco: Never Substance Use Topics Alcohol use: No Drug use: No Review of Systems: Pertinent positive and negatives as documented in the HPI. Physical Exam: Vitals: 04/24/251955 BP: Pulse: Resp: Temp: SpO2: 100% Physical Exam Vitals and nursing note reviewed. Constitutional: General: She is not in acute distress. HENT: Head: Normocephalic and atraumatic. Eyes: Extraocular Movements: Extraocular movements intact. Pupils: Pupils are equal, round, and reactive to light. Neck: Meningeal: Brudzinski's sign and Kernig's sign absent. Cardiovascular: Rate and Rhythm: Normal rate and regular rhythm. Pulses: Normal pulses. Pulmonary: Effort: Pulmonary effort is normal. Breath sounds: Normal breath sounds. Abdominal: General: Abdomen is flat. There is no distension. Palpations: Abdomen is soft. Tenderness: There is abdominal tenderness in the right lower quadrant, suprapubic area and left lower quadrant. There is no right CVA tenderness, left CVA tenderness or guarding. Negative signs include Grewal's sign and McBurney's sign. Musculoskeletal: Cervical back: Neck supple. Skin: General: Skin is warm and dry. Neurological: General: No focal deficit present. Mental Status: She is alert and oriented to person, place, and time. Cranial Nerves: No cranial nerve deficit. Sensory: No sensory deficit. Motor: No weakness. Coordination: Coordination normal. ED Course: Procedures Critical Care Procedure Note: Total critical care time: 0 minutes. Due to a high probability of clinically significant, life threatening deterioration, the patient required my highest level of preparedness to intervene emergently. I spent this critical care time directly and personally managing the patient. This critical care time included obtaining a history; exam ining the patient; ordering studies and reviewing and interpreting results; arranging urgent treatment and developing a management plan; evaluating the patient's response to treatment; frequent reassessments; and discussions with other providers. This critical care time was performed to assess and manage the high probability of imminent, life-threatening deterioration that could result in multi-organ failure and . It was exclusive of separately billable procedures and time spent treating other patients and teaching. Please see the Medical Decision Making section and remainder of the record for additional information on patient assessment and treatment. Authorized and performed by: Tanvir Durand MD No orders to display Labs Reviewed CBC WITH AUTO DIFFERENTIAL - Abnormal Result Value WBC 7.2 RBC 4.90 (*) Hemoglobin 14.5 Hematocrit 43.6 MCV 89.2 MCH 29.7 MCHC 33.3 RDW 14.3 Platelets 136 MPV 13.2 (*) NRBC 0.0 NRBC Absolute 0.00 Neutrophils Relative 54.3 Lymphocytes Relative 39.0 Monocytes Relative 4.7 Eosinophils Relative 1.4 Basophils Relative 0.3 Immature Granulocytes Relative 0.3 Neutrophils Absolute 3.91 Lymphocytes Absolute 2.81 Monocytes Absolute 0.34 Eosinophils Absolute 0.10 Basophils Absolute 0.02 Immature Granulocytes Absolute 0.02 URINALYSIS WITH REFLEX MICROSCOPIC AND CULTURE - Abnormal Specific [place] Urine 1.037 (*) pH, Urine 7.0 Leukocytes, Urine Negative Nitrite, Urine Negative Protein, Urine Trace Glucose, Urine Negative Ketones, Urine Trace (*) Urobilinogen, Urine 1.0 Bilirubin, Urine Negative Blood, Urine Trace (*) RBC, Urine 4.2 (*) WBC, Urine 0.9 Squamous Epithelial, Urine >100 (*) Bacteria, Urine Few (*) Hyaline Casts, Urine 0.8 COMPREHENSIVE METABOLIC PANEL - Normal Sodium 141 Potassium 4.2 Chloride 109 CO2 27 Anion Gap 5 Glucose 98 BUN 15 Creatinine 1.04 eGFR 74 BUN/Creatinine Ratio 14.4 Calcium 8.6 AST (SGOT) 20 ALT (SGPT) 27 Alkaline Phosphatase 80 Total Protein 6.8 Albumin 3.7 Total Bilirubin 0.4 HCG, SERUM, QUALITATIVE - Normal hCG Qual Negative HCG QUALITATIVE, URINE - Normal Preg Test, Ur Negative MAGNESIUM - Normal Magnesium 2.1 CBC AND DIFFERENTIAL Narrative: The following orders were created for panel order CBC and differential. Procedure Abnormality Status --------- ------ CBC auto differential[[id number]] Abnormal Final result Please view results for these tests on the individual orders. URINALYSIS WITH REFLEX MICROSCOPIC AND CULTURE Narrative: The following orders were created for panel order Urinalysis with reflex microscopic and culture. Procedure Abnormality Status --------- ------ Urinalysis with reflex ...[[id number]] Abnormal Final result [facility] urine culture tube[[id number]] Final result Please view results for these tests on the individual orders. Medical Decision Making Headache Differential Diagnosis -Primary headache: Migraine, tension, cluster -ICH/SAH -Hydrocephalus -CVA -Meningitis -HTN -Temporal arteritis/other vasculitis -Analgesic rebound -Space occupying lesion -Idiopathic intracranial hypertension -Glaucoma -Sinusitis 29-year-old female seen in initial evaluated in stable hemodynamic condition with the previous listed complaint. Initial evaluation as described. Patient does not have any significant red flag findings on history or clinical examination that is concerning for intracranial hemorrhage, subarachnoid he morrhage, meningitis. There has been no head trauma. At this is not the worst headache of her life.It was not sudden or more severe at onset. At this time there is no clinical necessity for CT head,will continue to reevaluate. Will administer migraine cocktail with Toradol, Zofran, Benadryl, 1 L bolus IV normal saline. Amount and/or Complexity of Data Reviewed Labs: ordered. Decision-making details documented in ED Course. Admission and/or Transfer Required: No ED Course as of 04/26/252117 Sat Apr 24, [id number] On repeat examination patient remains in stable hemodynamic condition. She is resting comfortably. Headache has improved significantly, no significant headache at this time. Based on this presentation, this is likely an exacerbation of chronic migraines. Patient states she has very infrequent m igraines, less than once or twice a year. It does not typically occur monthly. However the description of her symptoms is consistent likely with migraine as the patient initially discussed. I did further consider CT imaging of the head, however again at this time it is not clinically necessary. Patient has no significant red flag findings on history or clinical examination that would warrant CT imaging. [JF] 2143 With regards to the cramping in the lower abdomen, this seems to have resolved as well. Patient has no evidence of infection. No metabolic changes. No electrolyte abnormalities. She does not currently have any pain or burning with urination, this occurred few days ago, however subsequently resolved. On repeat examination she has no CVA tenderness. Urinalysis does show slight blood and few bacteria, however negative for nitrite and leukocyte esterase. Patient just finished her menstrual cycle yesterday, this may be some residual blood from recent menstrual cycle. Clinical examination and presentation is inconsistent with pyelonephritis and kidney stone. Additionally patient is not currently having symptoms, CT imaging is not clinically warranted. Additionally patient is not , ectopic or related complication would be unlikely. [JF] 2144 At this time based on evaluation there does not appear to be an acute or otherwise immediate life-threatening pathology per the listed differential diagnosis that requires hospitalization or further emergent stabilization at this time. Patient remains in stable condition. I discussed with the patient at length the indications to return to the emergency department as well as appropriate outpatient follow-up. They expressed understanding and the patient was subsequently discharged home in stable hemodynamic condition. [JF] ED Course User Index [JF] Tanvir Durand MD Clinical Impressions as of 04/26/252117 Migraine without aura and without status migrainosus, not intractable Diagnoses: ICD-10-CM ICD-9-CM 1. Migraine without aura and without status migrainosus, not intractable G43.009 346.10 There are no discharge medications for this patient. Please note that this chart has been created using speech recognition software and may contain errors related to that system, including errors in grammar, punctuation, and spelling. It may also include errors in words and phrases. If there are any questions or concerns, please feel free to contact me for clarification. Tanvir Durand MD 04/24/251918 Tanvir Durand MD 04/26/252117 documented in this encounter Plan of Treatment Not on file documented as of this encounter Procedures Procedure Name Priority Date/Time Associated Diagnosis Comments URINALYSIS WITH REFLEX MICROSCOPIC AND CULTURE STAT 04/24/2025 7:52 PM EDT [facility] URINE CULTURE TUBE STAT 04/24/2025 7:52 PM EDT HCG QUALITATIVE, URINE STAT 7:52 PM EDT URINALYSIS WITH REFLEX MICROSCOPIC AND CULTURE STAT 04/24/2025 7:52 PM EDT CBC WITH AUTO DIFFERENTIAL STAT 04/24/2025 7:50 PM EDT CBC AND DIFFERENTIAL STAT 04/24/2025 7:50 PM EDT HCG, SERUM, QUALITATIVE STAT 04/24/2025 7:50 PM EDT MAGNESIUM Add-On 04/24/2025 7:50 PM EDT COMPREHENSIVE METABOLIC PANEL STAT 04/24/2025 7:50 PM EDT documented in this encounter Results * [facility] urine culture tube (04/24/2025 7:52 PM EDT) Extra Tube Hold for add-ons. 04/24/2025 10:02 PM EDT [facility] Comment:Auto resulted. Urine Urine specimen obtained by clean catch procedure / Unknown Non-blood Collection / Unknown 04/24/2025 7:52 PM EDT 04/24/2025 8:05 PM EDT us Tanvir Durand MD LAB URINE ORDERABLES Final Res ult [facility] [address] [place] [address], [place] [phone] * (ABNORMAL) Urinalysis with reflex microscopic and culture (04/24/2025 7:52 PM EDT) [facility] Specific [place] Urine 1.037(H) 1.003 - 1.030 LAB URINALYSIS - AUTOMATED METHOD 04/24/2025 8:22 PM [facility] pH, Urine 7.0 5.0 - 8.0 pH LAB URINALYSIS - AUTOMATED METHOD 04/24/2025 8:22 PM [facility] Leukocytes, Urine Negative Negative LAB URINALYSIS - AUTOMATED METHOD 04/24/2025 8:22 PM [facility] Nitrite, Urine Negative Negative LAB URINALYSIS - AUTOMATED METHOD 04/24/2025 8:22 PM [facility] Protein, Urine Trace <=Trace mg/dL LAB URINALYSIS - AUTOMATED METHOD 04/24/2025 8:22 PM [facility] Glucose, Urine Negative Negative mg/dL LAB URINALYSIS - AUTOMATED METHOD 04/24/2025 8:22 PM [facility] Ketones, Urine Trace(A) Negative mg/dL LAB URINALYSIS - AUTOMATED METHOD 04/24/2025 8:22 PM [facility] Urobilinogen, Urine 1.0 0.2 - 1.0 mg/dL LAB URINALYSIS - AUTOMATED METHOD 04/24/2025 8:22 PM EDT [facility] Bilirubin, Urine Negative Negative LAB URINALYSIS - AUTOMATED METHOD 04/24/2025 8:22 PM EDT [facility] Blood, Urine Trace(A) Negative LAB URINALYSIS - AUTOMATED METHOD 04/24/2025 8:22 PM [facility] RBC, Urine 4.2(H) 0 - 4 /HPF LAB URINALYSIS - [facility]OMATED METHOD [facility] WBC, Urine 0.9 0 - 4 /HPF LAB URINALYSIS - AUTOMATED METHOD 04/24/2025 8:22 PM [facility] Squamous Epithelial, Urine >100(H) 0 - 60 /LPF LAB URINALYSIS - AUTOMATED METHOD 04/24/2025 8:22 PM [facility] Bacteria, Urine Few(A) Negative /HPF LAB URINALYSIS - AUTOMATED METHOD 04/24/2025 8:22 PM [facility] Hyaline Casts, Urine 0.8 0 - 3 /LPF LAB URINALYSIS - AUTOMATED METHOD 04/24/2025 8:22 PM [facility] Urine Urine specimen obtained by clean catch procedure / Unknown Non-blood Collection / Unknown 04/24/2025 7:52 PM EDT 04/24/2025 8:05 PM EDT us Tanvir Durand MD LAB URINE ORDERABLES Final Res ult [facility] [address] [place] [address], * HCG qualitative, urine (04/24/2025 7:52 PM EDT) Preg Test, Ur Negative Negative 04/24/2025 8:27 PM EDT [facility] Urine Urine specimen obtained by clean catch procedure / Unknown Non-blood Collection / Unknown 04/24/2025 7:52 PM EDT 04/24/2025 8:05 PM EDT Tanvir Durand MD LAB URINE ORDERABLES Final Res ult Performing Organization Address [facility]/ZIP Co de Phone Number [facility] [address] [place] [address], [place] [phone] * Magnesium (04/24/2025 7:50 PM EDT) Magnesium 2.1 1.9 - 2.6 mg/dL LAB CHEMISTRY METHOD 04/24/2025 9:25 PM EDT [facility] Blood Venous blood specimen / Unknown Venipuncture / Unknown 04/24/2025 7:50 PM EDT 04/24/2025 8:05 PM EDT Tanvir Durand MD LAB BLOOD ORDERABLES Final Res ult Performing Organization Address [facility]/ZIP Co de Phone Number [facility] [address] [place] [address], [place] [phone] * (ABNORMAL) CBC auto differential (04/24/2025 7:50 PM EDT) WBC 7.2 4.8 - 10.8 K/mcL LAB HEMETOLOGY METHOD 04/24/2025 8:58 PM EDT [facility] RBC 4.90(H) 3.80 - 4.80 M/mcL LAB HEMETOLOGY METHOD 04/24/2025 8:58 PM EDT [facility] Hemoglobin 14.5 11.5 - 16.0 g/dL LAB HEMETOLOGY METHOD 04/24/2025 8:58 PM EDT [facility] Hematocrit 43.6 35.0 - 47.0 % LAB HEMETOLOGY METHOD 04/24/2025 8:58 PM EDT [facility] MCV 89.2 79.0 - 98.0 FL LAB HEMETOLOGY METHOD 04/24/2025 8:58 PM EDT [facility] MCH 29.7 27.0 - 32.0 pcg LAB HEMETOLOGY METHOD 04/24/2025 8:58 PM EDT [facility] MCHC 33.3 32.0 - 37.0 g/dL LAB HEMETOLOGY METHOD 04/24/2025 8:58 PM EDT [facility] RDW 14.3 11.0 - 15.0 % LAB HEMETOLOGY METHOD 04/24/2025 8:58 PM EDT [facility] Platelets 136 130 - 400 K/mcL LAB HEMETOLOGY METHOD 04/24/2025 8:58 PM EDT [facility] MPV 13.2(H) 7.0 - 11.0 FL LAB HEMETOLOGY METHOD 04/24/2025 8:58 PM EDT [facility] NRBC 0.0 <1.0 % LAB HEMETOLOGY METHOD 04/24/2025 8:58 PM EDT [facility] NRBC Absolute 0.00 <0.10 K/mcL LAB HEMETOLOGY METHOD 04/24/2025 8:58 PM EDT [facility] Neutrophils Relative 54.3 % LAB HEMETOLOGY METHOD 04/24/2025 8:58 PM EDT [facility] Lymphocytes Relative 39.0 % LAB HEMETOLOGY METHOD 04/24/2025 8:58 PM EDT [facility] Monocytes Relative 4.7 % LAB HEMETOLOGY METHOD 04/24/2025 8:58 PM EDT [facility] Eosinophils Relative 1.4 % LAB HEMETOLOGY METHOD 04/24/2025 8:58 PM EDT [facility] Basophils Relative 0.3 % LAB HEMETOLOGY METHOD 04/24/2025 8:58 PM EDT [facility] Immature Granulocytes Relative 0.3 % LAB HEMETOLOGY METHOD 04/24/2025 8:58 PM EDT [facility] Neutrophils Absolute 3.91 1.50 - 7.00 K/mcL LAB HEMETOLOGY METHOD 04/24/2025 8:58 PM EDT [facility] Lymphocytes Absolute 2.81 1.00 - 5.00 K/mcL LAB HEMETOLOGY METHOD 04/24/2025 8:58 PM EDT [facility] Monocytes Absolute 0.34 0.20 - 1.00 K/mcL LAB HEMETOLOGY METHOD 04/24/2025 8:58 PM EDT [facility] Eosinophils Absolute 0.10 0.00 - 0.50 K/mcL LAB HEMETOLOGY METHOD 04/24/2025 8:58 PM EDT [facility] Basophils Absolute 0.02 0.00 - 0.20 K/mcL LAB HEMETOLOGY METHOD 04/24/2025 8:58 PM EDT [facility] Immature Granulocytes Absolute 0.02 0.00 - 0.03 K/mcL LAB HEMETOLOGY METHOD 04/24/2025 8:58 PM EDT [facility] Blood Venous blood specimen / Unknown Venipuncture / Unknown 04/24/2025 7:50 PM EDT 04/24/2025 8:05 PM EDT us Tanvir Durand MD LAB BLOOD ORDERABLES Final Res ult [facility] [address] [place] [address], * hCG, serum, qualitative (04/24/2025 7:50 PM EDT) hCG Qual Negative Negative 04/24/2025 8:27 PM EDT [facility] Blood Venous blood specimen / Unknown Venipuncture / Unknown 04/24/2025 7:50 PM EDT 04/24/2025 8:05 PM EDT us Tanvir Durand MD LAB BLOOD ORDERABLES Final Res ult [facility] [address] [place] [address], * Comprehensive Metabolic Panel (CMP) (04/24/2025 7:50 PM EDT) Sodium 141 133 - 145 mmol/L LAB CHEMISTRY METHOD 04/24/2025 8:32 PM [facility] Potassium 4.2 3.5 - 5.5 mmol/L LAB CHEMISTRY METHOD 04/24/2025 8:32 PM [facility] Comment:Hemolysis present Chloride 109 96 - 110 mmol/L LAB CHEMISTRY METHOD 04/24/2025 8:32 PM [facility] CO2 27 21 - 32 mmol/L LAB CHEMISTRY METHOD 04/24/2025 8:32 PM [facility] Anion Gap 5 3 - 11 LAB CHEMISTRY METHOD 04/24/2025 8:32 PM [facility] Glucose 98 70 - 100 mg/dL LAB CHEMISTRY METHOD 04/24/2025 8:32 PM [facility] BUN 15 5 - 25 mg/dL LAB CHEMISTRY METHOD 04/24/2025 8:32 PM [facility] Creatinine 1.04 0.50 - 1.10 mg/dL LAB CHEMISTRY METHOD 04/24/2025 8:32 PM [facility] eGFR 74 >=60 mL/min/1. 73m2 LAB CHEMISTRY METHOD 04/24/2025 8:32 PM [facility] Comment:Calculation based on the Chronic Kidney Disease Epidemiology Collaboration (CKD-EPI) equation refit without adjustment for race. BUN/Creatinine Ratio 14.4 LAB CHEMISTRY METHOD 04/24/2025 8:32 PM EDT [facility] Calcium 8.6 8.5 - 10.5 mg/dL LAB CHEMISTRY METHOD 04/24/2025 8:32 PM EDT [facility] AST (SGOT) 20 10 - 42 unit/L LAB CHEMISTRY METHOD 04/24/2025 8:32 PM EDT [facility] Comment:Hemolysis present ALT (SGPT) 27 10 - 60 unit/L LAB CHEMISTRY METHOD 04/24/2025 8:32 PM EDT [facility] Alkaline Phosphatase 80 42 - 121 unit/L LAB CHEMISTRY METHOD [facility]25 [facility] Total Protein 6.8 6.0 - 8.0 g/dL LAB CHEMISTRY METHOD 04/24[facility]2025 8:[facility] Albumin 3.7 3.2 - 5.0 g/dL LAB CHEMISTRY METHOD 04/24/2025 8:32 PM EDT [facility] Total Bilirubin 0.4 0.0 - 1.4 mg/dL LAB CHEMISTRY METHOD 04/24/2025 8:32 PM [facility] Blood Venous blood specimen / Unknown Venipuncture / Unknown 04/24/2025 7:50 PM EDT 04/24/2025 8:05 PM EDT us Tanvir Durand MD LAB BLOOD ORDERABLES Final Res ult [facility] [address] [place] [address], documented in this encounter Visit Diagnoses Diagnosis Migraine without aura and without status migrainosus, not intractable- Primary documented in this encounter Administered Medications Inactive Administered Medications - up to 3 most recent administrations Medication Order MAR Action Action Date Dose Rate Site diphenhydrAMINE (BENADRYL) injection 25 mg 25 mg, intravenous, Once, On 04/24/25 at 1914, For 1 dose Given 04/24/2025 8:16 PM EDT 25 mg ketorolac (TORADOL) injection 15 mg 15 mg, intravenous, Once, On 04/24/25 at 1914, For 1 dose Given 04/24/2025 8:17 PM EDT 15 mg ondansetron (PF) (ZOFRAN) injection 4 mg 4 mg, intravenous, Once, On 04/24/25 at 1914, For 1 dose Given 04/24/2025 8:17 PM EDT 4 mg sodium chloride 0.9 % bolus 1,000 mL 1,000 mL, intravenous, at 2,000 mL/hr, Administer over 30 Minutes, Once, On 04/24/25 at 1914, For 1 dose New Bag 04/24/2025 8:18 PM EDT 1,000 mL 2000 mL/hr documented in this encounter Active and Recently Administered Medications Times are shown in EDT. Scheduled Medication Order 04/22/2025 04/23/2025 04/24/2025 diphenhydrAMINE (BENADRYL) injection 25 mg (COMPLETED) 25 mg, intravenous, Once, On 04/24/25 at 1914, For 1 dose 2016 (Given - Provid er: Aissatou Hernandez RN) ketorolac (TORADOL) injection 15 mg (COMPLETED) 15 mg, intravenous, Once, On 04/24/25 at 1914, For 1 dose 2017 (Given - Provid er: Aissatou Hernandez RN) ondansetron (PF) (ZOFRAN) injection 4 mg (COMPLETED) 4 mg, intravenous, Once, On 04/24/25 at 1914, For 1 dose 2017 (Given - Provid er: Aissatou Hernandez RN) sodium chloride 0.9 % bolus 1,000 mL (COMPLETED) 1,000 mL, intravenous, at 2,000 mL/hr, Administer over 30 Minutes, Once, On 04/24/25 at 1914, For 1 dose 2017 (New Bag - Prov ider: Aissatou Hernandez RN)2100 (Stopped - Provider: Aissatou Hernandez RN) documented in this encounter Care Teams 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
--- OUTSIDE RECORDS SUMMARY | 2025-04-27 13:30 | XMS_ITS | Encounter Summary ---
Author Organization [employer] Address [address] [facility] [address] 7[address] [place] [address] Care Team Providers Care Men'S Locker Room Attendant Name Role Phone Eli Kenny MD Primary Care Pro vider Yifan Torres RN Unavailable [phone] Svitlana Ward Unavailable Encounter Details Date Type Department Care Team (Late st Contact Info) Description 04/27/2025 1:30 PM EDT Office Visit [facility] [address] [place], [place] [phone] Briana Nino MD [address] [place], [place] [phone] Vaginal discharge (Primary Dx) Social History Tobacco Use Types Packs/Day Years [...] with others, in a hotel, in a assisted, living outside on the street, on a [...] Sign Reading Time Taken Comments Blood Pressure 118/70 04/27/2025 1:27 PM EDT Pulse 72 04/27/2025 1:27 PM EDT Temperature 36.1 C (96.9 F) 04/27/2025 1:27 PM EDT Respiratory Rate 20 04/27/2025 1:27 PM EDT Oxygen Saturation 98% 04/27/2025 1:27 PM EDT Inhaled Oxygen Concentration - - Weight 60.6 kg (133 lb 9.6 oz) 04/27/2025 1:27 P M EDT Height 149.9 cm (4' 11 ) 04/27/2025 1:27 PM EDT Body Mass Index 26.98 04/27/2025 1:27 PM EDT documented in this encounter Plan of Treatment Scheduled Orders Name Type Priority Associated Diagnoses Orde r Schedule Bacterial Vaginosis, Yeast and Trich Microbiology Routine Vaginal discharge Expected: 04/27/2025 (Approximate), Expires: 04/27/2026 documented as of this encounter Visit Diagnoses Diagnosis Vaginal discharge- Primary Leukorrhea, not specified as infective documented in this encounter Additional Health Concerns Assessment Noted Time PHQ-9 Depression Total Score: 3 03/16/20 25 10:37 AM EDT documented as of this encounter Care Teams Men'S Locker Room Attendant Relationship Specialty Start Date End Date Eli Kenny MD [address] [place] [id number] PCP - General Internal Medicine 02/06/23 Yifan Torres, JESÚS [address] [place] [address] Registered Nurse Family Medicine 04/26/25 Svitlana Ward 04/26/25 documented as of this encounter
--- OUTSIDE RECORDS SUMMARY | 2025-04-27 18:57 | XMS_ITS | Encounter Summary ---
Author Organization [facility] Address [address] [place] [phone] Phone Care Team Providers Care Manager Mass Name Role Phone Ericka Cheek MD Primary Care Provider [phone] Encounter Details Date Type Department Care Team (Late st Contact Info) Description 05/24/2011 Documentation EM Family Medicine [address] [place] [address] Family Medicine, Physician [address] [place], [place] [phone] Social History Tobacco Use Types Packs/Day Years [...] filedocumented in this encounter Care Teams Manager Mass Relationship Specialty Start Date End Date Ericka Cheek MD [address] [place] [address] [place] [address] PCP - General 04/12/17 02/28/23 documented as of this encounter
--- OUTSIDE RECORDS SUMMARY | 2025-04-27 18:57 | XMS_ITS | Encounter Summary ---
Author Organization [employer] Address [address] [place] [address] 7 [place] [address] Care Team Providers Care Petroleum Engineer Name Role Phone Eli Kenny MD Primary Care Pro vider Yifan Torres RN Unavailable [phone] Svitlana Ward Unavailable Reason for Visit * Reason Comments Care Coordination C3CM- chart review Encounter Details Date Type Department Care Team (Latest Contact Info) Description 04/26/2025 Patient Outreach [facility] [address] [place] [address] Eli Kenny MD [address] [place] [address] Care Coordination (C3CM- chart review) Social History Tobacco Use Types Packs/Day Years [...] with others, in a hotel, in a longterm, living outside on the street, on a [...] AM EDT documented as of this encounter Progress Notes * Yifan Torres RN - 04/26/2025 8:40 AM EDT KARLEE Torres RN, performed chart review, in anticipation of initial assessment with patient, aspatient has stratified for C3 Adult Complex Care through the ADT feed. History significant for highrisk sexual behavior, decreased hearing, tobacco use, depression, headache, family conflict, dental caries. Specialists include [facility], [facility] obstetrics, [facility]. ED visits within the last 12 months include [facility] 04/24/25. Last appointment in PCP office on 03/12/25. No future appointment scheduled. documented in this encounter Plan of Treatment Not on file documented as of this encounter Visit Diagnoses Not on filedocumented in this encounter Additional Health Concerns Assessment Noted Time PHQ-9 Depression Total Score: 3 03/16/20 10:37 AM EDT documented as of this encounter Care Teams Petroleum Engineer Relationship Specialty Start Date End Date Eli Kenny MD [address] [place] [address] PCP - General Internal Medicine 02/06/23 Yifan Torres RN [address] [place] [address] Registered Nurse Family Medicine 04/26/25 Svitlana Ward 04/26/25 documented as of this encounter
--- OUTSIDE RECORDS SUMMARY | 2025-04-27 18:57 | XMS_ITS | Encounter Summary ---
Author Organization [employer] Address [address] [facility] 7t [place] [address] Care Team Providers Care Rock Duster Name Role Phone Eli Kenny MD Primary Care Pro vider Yifan Torres RN Unavailable [phone] Svitlana Ward Unavailable Encounter Details Date Type Department Care Team ([facility] st Contact Info) Description 09/01/2024 Orders Only [facility] MED & PEDS [address] [place], [place] [phone] Filemon Monge MD [address] [place] [address] Social History Tobacco Use Types Packs/Day Years [...] documented as of this encounter Care Teams Rock Duster Relationship Specialty Start Date End Date Eli Kenny MD [address] [place] [address] PCP - General Internal Medicine 02/06/23 Yifan Torres, RN [address] [place] [address] Registered Nurse Family Medicine 04/26/25 Svitlana Ward 04/26/25 documented as of this encounter
--- OUTSIDE RECORDS SUMMARY | 2025-04-27 18:57 | XMS_ITS | Encounter Summary ---
Author Organization [employer] Address [address] [place] [address] 7 [place] [address] Care Team Providers Care Inclusion Special Educator Name Role Phone Eli Kenny MD Primary Care Pro vider Yifan Torres RN Unavailable [phone] Svitlana Ward Unavailable Reason for Visit * Reason Comments [facility]ination [facility] Encounter Details Date Type Department Care Team (Latest Contact Info) Description 04/26/2025 Patient Outreach [facility] MEDICINE [address] [place] [address] Eli Kenny MD [address] [place] [address] Care Coordination ([facility]) Social History Tobacco Use Types Packs/Day Years [...] with others, in a hotel, in a senior living, living outside on the street, on a [...] as of this encounter Progress Notes * Svitlana Ward - 04/26/2025 2:53 PM EDT CHW Svitlana Ward, placed outbound call to patient in regards to offer services. CHW introducing herself from [facility] CM Department with CHW's name, department and direct contact number requesting call back. Will re-attempt to contact within 5 days. and address not confirmed. documented in this encounter Plan of Treatment Not on file documented as of this encounter Visit Diagnoses Not on filedocumented in this encounter Additional Health Concerns Assessment Noted Time PHQ-9 Depression Total Score: 3 03/16/20 10:37 AM EDT documented as of this encounter Care Teams Inclusion Special Educator Relationship Specialty Start Date End Date Eli Kenny MD [address] [place] [address] PCP - General Internal Medicine 02/06/23 Yifan Torres, JESÚS [address] [place] [address] Registered Nurse Family Medicine 04/26/25 Svitlana Ward 04/26/25 documented as of this encounter
--- OUTSIDE RECORDS SUMMARY | 2025-04-27 18:57 | XMS_ITS | Encounter Summary ---
Author Organization [facility] Address [address] [place] [address] 7 [place] [address] Care Team Providers Care Wax Pattern Coater Name Role Phone Eli Kenny MD Primary Care Pro vider Yifan Torres RN Unavailable [phone] Svitlana Ward Unavailable Encounter Details Date Type Department Care Team (Late st Contact Info) Description 02/15/2023 Abstract [facility] [address] [place] [address] Zaki Dumont DMD [address] [place] [address] Social History Tobacco Use Types Packs/Day Years [...] on filedocumented in this encounter Care Teams Wax Pattern Coater Relationship Specialty Start Date End Date Eli Kenny MD [address] [place] [address] PCP - General Internal Medicine 02/06/23 Yifan Torres, JESÚS [address] [place] [address] Registered Nurse Family Medicine 04/26/25 Svitlana Ward 04/26/25 documented as of this encounter
--- OUTSIDE RECORDS SUMMARY | 2025-04-27 18:57 | XMS_ITS | Encounter Summary ---
Author Organization [employer] Address [address] 7[address] [place] [address] Care Team Providers Care Satellite Technician Name Role Phone Eli Kenny MD Primary Care Pro vider Yifan Torres RN Unavailable [phone] Svitlana Ward Unavailable Reason for Visit * Reason Comments Med Refill Encounter Details Date Type Department Care Team ([facility] Contact Info) Description 04/11/2025 Refill [facility] [address] [place] [address] Gurdeep Haile MD [address] [place] [address] Social History Tobacco Use Types Packs/Day Years [...] with others, in a hotel, in a fci, living outside on the street, on a [...] documented as of this encounter Care Teams Satellite Technician Relationship Specialty Start Date End Date Eli Kenny MD [address] [place] [address] PCP - General Internal Medicine 02/06/23 Yifan Torres, JESÚS [address] [place] [address] Registered Nurse Family Medicine 04/26/25 Svitlana Ward 04/26/25 documented as of this encounter
--- OUTSIDE RECORDS SUMMARY | 2025-04-27 18:57 | XMS_ITS ---
Author Organization [facility] Address [address] [place] [address] [place] [address] Care Team Providers Care Locomotive Inspector Name Role Phone Eli Kenny MD Primary Care Pro vider Yifan Torres RN Unavailable Svitlana Ward Unavailable CM Complex Status:Outreach In Progress (Enrolling) Start date:04/26/2025 Enrollment reason:ADT [facility] Case Team Name Relationship Phone Yifan Torres RN(Responsible Staff) Registered N malena [phone] Continued Care and Services Coordination
--- OUTSIDE RECORDS SUMMARY | 2025-04-27 18:57 | XMS_ITS | Clinical Summary ---
Author Organization [employer] Address [address] [facility] [address] [place] [address] Care Team Providers Care Medical Sales Representative Name Role Phone Eli Kenny MD Primary Care Pro vider Yifan Torres RN Unavailable [phone] Svitlana Ward Unavailable Allergies No known active allergies Medications * This document contains information received from the source organization and may not represent a complete record from that organization. lidocaine (Xylocaine) 5 % ointment Apply up to 5 times a day as needed to affected area 30 g 5 Active valACYclovir (Valtrex) 500 MG tablet Take 1 tablet twice a day for three days as needed for outbreak 36 tablet 2 5 Active metroNIDAZOLE (Flagyl) 500 MG tablet Take 1 tablet (500 mg) by mouth 2 times daily for 7 days. 14 tablet 5 05/04/20 25 Active naproxen (Naprosyn) 500 MG tablet Take 1 tablet (500 mg) by mouth 2 times daily. 60 tablet 5 04/11/20 25 Active Problems Problem Noted Date Diagnosed [...] from aunt PLAN: 1. Follow up with [facility]: Not recommended for follow-up 2. Patient goal is be connected with a therapist 3. Behavioral Recommendations a. Utilize coping skills provided b. Engage in OP therapy once established c. Reach out to [facility] for additional support Headache 05/18/2023 Encounters * This document contains information received from the source organization and may not represent a complete record from that organization. Date Type Department Care Team Description 04/27/2025 1:30 PM EDT Office Visit [address] [address] Briana Nino MD Vaginal discharge (Primary Dx) 04/27/2025 Travel 04/26/[address] [address] Eli Kenny MD Nurse Triage 04/26/2025 Patient Outreach [address] [address] Eli Kenny MD Care Coordination (C3 Cm-[facility] Svitlana Ward telephone call outreach) 04/26/2025 Patient Outreach [address] [address] Eli Kenny MD Care Coordination (C3 CM-[facility] Svitlana Ward chart review) 04/26/2025 Patient Outreach [address] [address] Eli Kenny MD Care Coordination (C3CM- chart review) 04/26/2025 Patient Outreach [address] [address] Eli Kenny MD 04/11/2025 Refill [facility] [address] [place] [address] Gurdeep Haile MD 03/30/2025 3:15 PM EDT Telemedicine [address] [address] Trent Madrigal CNM Vaginal irritation (Primary Dx); Herpes simplex infection; Depression, unspecified depression type 03/30/2025 Travel 03/29/[address] [address] Eli Kenny MD Chart Prep 03/25/2025 Results Follow-Up [address] [address] Trent Madrigal CNM Herpes Simplex Virus 1 and 2 (IgG), Type-Specific Antibodies 03/24/2025 Results Follow-Up [address] [address] Trent Madrigal CNM HIV-1/2 Antigen and Antibodies, Fourth Generation, with Reflexes 03/22/2025 Orders Only [address] [address] Trent Madrigal CNM Ulcer of perianal area, unspecified ulcer stage (CMS/HCC) (Primary Dx) 03/17/[address] [address] Eli Kenny MD Results 03/17/2025 Results Follow-Up [facility] [address] [place] [address] Filemon Monge MD hCG, Total, Quantitative 03/16/2025 10:00 AM EDT Office Visit [address] [address] Trent Madrigal CNM Ulcer of perianal area, unspecified ulcer stage (CMS/HCC) (Primary Dx) 03/16/2025 Orders Only [address] [address] Trent Madrigal CNM 03/16/2025 Travel 03/15/[address] [address] Trent Madrigal CNM chart prep 03/15/2025 Results Follow-Up [facility] [address] [place] [address] Gurdeep Haile MD POCT urinalysis dipstick manually resulted, Bacterial Vaginosis Panel, Chlamydia/N. Gonorrhoeae RNA, TMA, Urogenitial, Additional followed-up results: 4 03/15/[address] [address] Eli Kenny MD Nurse Triage 03/15/[address] [address] Eli Kenny MD Results 03/12/2025 3:40 PM EDT [facility] [address] [address] Gurdeep Haile MD STD exposure (Primary Dx) 03/12/2025 Travel 03/12/[address] [address] Eli Kenny MD Nurse Triage 02/10/2025 Telephone [facility] [address] [place], [place] [phone] Filemon Monge MD Lab Orders 02/08/2025 Orders Only [address] [address] Nurys Schuler, JESÚS 02/02/2025 Orders Only [facility] [address] [place] [address] Filemon Monge MD Breast tenderness in female (Primary Dx) 02/02/[address] [address] Eli Kenny MD Results 02/01/2025 9:40 AM EDT Office Visit [facility] [address] [address] Filemon Monge MD Breast tenderness in female (Primary Dx); Vaginal discharge 02/01/2025 Results Follow-Up [facility] [address] [place] [address] Filemon Monge MD POCT , urine manually resulted, Chlamydia/N. Gonorrhoeae RNA, TMA, Urogenitial, Bacterial Vaginosis, hCG, Total, Quantitative from Last 3 Months Immunizations Immunization Administration [...] the past 12 months, has t he [employer], gas, oil or water [employer] threatened to shut off services in your home? No 11/23/2024 Depression Answer Date Recorded Patient Health Questionnaire-2 Score 1 03/16/2025 Internet Access Answer Date Recorded Internet Access Q1 Yes 11/23/2024 Internet Access Q2 Not on file 11/23/2024 Comments No Intention Date Recorded No desire to become (finding) 0 03/30/2025 Sex and Gender Information Value Date Recorded [...] Mass Index 26.98 04/27/2025 1:27 PM EDT Plan of Treatment Health Maintenance Due Date Last Done Comments Dental Oral Exam 08/26/2009 02/23/2009 Dental Prophylaxis 06/27/2012 12/26/2011, 0 09/21/2011, 04/17/2011, Additional history exists Pneumococcal Vaccine: Pediatrics (0 to 5 Years) and At-Risk Patients (6 to 49) Years (1 of 2 - PCV) 2012 COVID-19 Vaccine ( - season) 2024 Dental X-Ray: Bitewings 07/17/2024 07/16/20, 10/02/2013, 09/21/2011, Additional history exists Dental X-Ray: Full Mouth 04/07/2025 04/06/2022, 06/03 Influenza Vaccine (#1) 2025 , 05/17/2023, 05/29/2016, Additional history exists SDOH Screening 11/23/2025 11/23/2024 Alcohol/Substance Use Screening 03/16/2026 03/16/2025 Depression Screening 03/16/2026 03/16/2025, 03/16/20 Disability Screening 03/16/2026 03/16/2025 Tobacco Screening 03/16/2026 03/16/2025 Family Planning (PISQ) 03/30/2026 03/30/2025 DTaP/Tdap/Td Vaccines (9 - Td or Tdap) [...] 1995, Additional history exists HIV Screening Completed 03/24/2025, 03/02, 02/01/2025, Additional history exists Hepatitis C Screening Completed 03/24/2025 , 03/12/2025, 02/01/2025, Additional history exists Hepatitis A Vaccines Aged [...] Procedure Name Priority Date/Time Associated Diagnosis Comments HSV 1/2 IGG,TYPE SPECIFIC AB Routine 03/24/2025 9:09 AM EDT Ulcer of perianal area, unspecified ulcer stage (CMS/HCC) HEPATITIS C AB W/REFL TO HCV RNA, QN, PCR Routine 03/24/2025 9:09 AM EDT Vaginal discharge SYPHILIS SCREEN Routine 03/24/2025 9:09 AM EDT Screen for STD (sexually transmitted disease) HIV 1/2 ANTIGEN/ANTIBODY, FOURTH GENERATION W/RFL Routine 03/24/2025 9:09 AM EDT Screen for STD (sexually transmitted disease) URINALYSIS, COMPLETE Routine 03/24/2025 9:09 AM EDT Screen for STD (sexually transmitted disease) HERPES CULTURE WITH REFLEX TYPING Routine 03/16/2025 10:31 AM EDT SYPHILIS SCREEN Routine 03/12/2025 3:46 PM EDT [...] ([place] DPH) Routine 02/01/2025 SYPHILIS ABS ([place] DP) Routine 02/01/2025 HPV DNA, LOW/HIGH RISK Routine [...] to Health Maintenance Results * Syphilis Screen (03/24/2025 9:09 AM EDT) Only the most recent of2 resultswithin the time period is included. Syphilis Screen Nonreactive Nonreactive [facility] Blood 03/24/2025 9:09 AM EDT 03/24/2025 11:13 AM EDT Filemon Monge MD LAB BLOOD ORDERABLES Final Result [facility] [address] [place] [address] [phone] * Hepatitis C Antibody with Reflex to HCV, RNA, Quantitative, Real-Time PCR (03/24/2025 9:09 AM EDT) Only the most recent of2 resultswithin the time period is included. Hepatitis C Antibody Nonreactive Nonreactive [facility] Comment:Antibodies to HCV no t detected; does not exclude early acuteHCV infection. Blood Venous blood specimen / Unknown 03/24/2025 9:09 AM EDT 03/24/2025 11:07 AM EDT [facility] LAB BLOOD ORDERABLES Final Re sult [facility] [address] [place] [address] [phone] * (ABNORMAL) Herpes Simplex Virus 1 and 2 (IgG), Type-Specific Antibodies (03/24/2025 9:09 AM EDT) Herpes Simplex Type 1 IgG >58.00(A ) index [facility] Herpes Simplex Type 2 IgG >23.00(A ) index [facility] Comment:Index Interpretation ----- <0.90 Negative 0.90-1.09 Equivocal >1.09 PositiveThis assay utilizes recombinant type-specific antigensto differentiate HSV-1 from HSV-2 infections. Apositive result cannot distinguish between recent andpast infection. If recent HSV infection is suspectedbut the results are negative or equivocal, the assayshould be repeated in 4-6 weeks. The performancecharacteristics of the assay have not been establishedfor pediatric populations, immunocompromised patients,or screening.For additional information, please refer tohttp://education.Flywheel/faq/WIN870(This link is being provided for informational/educational purposes only.)THIS TEST WAS PERFORMED AT:[facility] [place] [id number]- 302ROSALIA MORRIS MD Blood Venous blood specimen / Unknown 03/24/2025 9:09 AM EDT 03/24/2025 11:13 AM EDT Trent Madrigal [facility] LAB BLOOD ORDERABLES Shruti l Result Performing Organization Address City/[facility]/ZIP Co de Phone Number [facility] [address], [place] [phone] * HIV-1/2 Antigen and Antibodies, Fourth Generation, with Reflexes (03/24/2025 9:09 AM EDT) Only the most recent of2 resultswithin the time period is included. [facility] HIV AB/AG Nonreactive Nonreactive [facility] Comment:HIV-1 p24 Ag and/or HIV-1/HIV-2 Ab not detected.A test result that is nonreactive does not exclude thepossibility of exposure to or infection with HIV-1 and/orHIV-2. Nonreactive results in this assay for individualswith prior exposure to HIV-1 and/or HIV-2 may be due toantigen and antibody levels that are below the limit ofdetection of this assay.The [employer] HIV Ag/Ab Combo assay result andsupplemental assay results should be interpreted inconjunction with the patient's clinical presentation,history and other laboratory results. If the results areinconsistent with clinical evidence, additional testing issuggested to confirm the result. Blood Venous blood specimen / Unknown 03/24/2025 9:09 AM EDT 03/24/2025 11:13 AM EDT us Filemon Monge MD LAB BLOOD ORDERABLES Final Result Performing Organization Address [facility]/ZIP Co de Phone Number [facility] [address] [place] [phone] * (ABNORMAL) Urinalysis Complete (03/24/2025 9:09 AM EDT) Pathologist [facility] Color Urine Yellow [facility] Appearance Urine Clear [facility] PH 5.5 5.0 - 9.0 [facility] Glucose Urine UA Negative Negative mg/dL [facility] Urine Blood Small (1+)(A) Negative [facility] Specific [place] - Urine 1.025 1.005 - 1.025 [facility] Urine Protein Negative Neg-Trace mg/dL [facility] Urine Ketones Trace Negative mg/dL [facility] Nitrite Urine Negative Negative [facility] Leukocyte Esterase Urine Negative Negative [facility] RBC Urine 6-10(A) 0 - 2 /HPF [facility] Urine WBC 0-5 0 - 5 /HPF [facility] Urine Squamous Epithelial Cell 6-10 0 - 2 /HPF [facility] Urine Bacteria None Seen None Seen [facility] Hyaline Casts, Urine 0-2 0 - 2 /LPF [facility] Urine (Urine, Random) 03/24/2025 9:09 AM EDT 03/24/2025 11:17 AM EDT us Filemon Monge MD LAB URINE ORDERABLES Final Result Performing Organization Address [facility] Co de Phone Number [facility] [address] [place] [phone] * Herpes Simplex Virus Culture with Reflex Typing (03/16/2025 10:31 AM EDT) HSV Culture/Type SEE NOTE [facility] Comment:HERPES SIMPLEX VIRUS CULTURE W/RFL TO TYPING Micro Number: [id number] Test Status: Final Specimen Source: Not given Specimen Quality: Adequate HSV Culture: Not IsolatedTHIS TEST WAS PERFORMED AT:[employer] [id number] MERATI,MD 03/16/2025 10:3 1 AM EDT 03/16/2025 4:55 PM EDT us Trent Madrigal CNM LAB MICROBIOLOGY - GENERA L ORDERABLES Final Result Performing Organization Address [facility] Co de Phone Number [facility] [address] [place] [phone] * hCG, Total, Quantitative (03/12/2025 3:46 PM EDT) Only the most recent of2 resultswithin the time period is included. HCG Quantitative <2 mIU/mL [facility] Comment:Weeks post LMP Appro ximate hCG(Last Menstrual Period) Range (mIU/ml)3 - 4 weeks 9 - 1304 - 5 weeks 75 - 2,6005 - 6 weeks 850 - 20,8006 - 7 weeks 4000 - 100,2007 - 12 weeks 11,500 - 289,35495 - 16 weeks 18,300 - 137,55915 - 29 weeks (2nd trimester) 1,400 - 53,75960 - 41 weeks (3rd trimester) 940 - [...] Monge MD LAB BLOOD ORDERABLES Final Result [facility] [address] [place] [phone] * (ABNORMAL) Bacterial Vaginosis Panel (03/12/2025 3:35 PM EDT) Only the most recent of2 resultswithin the time period is included. Pathologist [facility] TRICHOMONAS VAGINALIS DETECTION BY PCR NOT DETECTED Not Detect [facility] BACTERIAL VAGINOSIS DETECTION BY PCR POSITIVE(A) Negative [facility] Comment:The BV organism targ ets of [...] DETECTION BY PCR NOT DETECTED Not Detect [facility] Nadiya glab krusei PCR NOT DETECTED Not Detect [facility] Swab Vaginal structure / Unknown 03/12/2025 3:35 PM EDT 03/12/2025 5:33 PM EDT Gurdeep Vogel MD LAB MICROBIOLOGY - GENERAL ORDERABLES Final Result [facility] [address] [place] [phone] [phone] * Chlamydia/N. Gonorrhoeae RNA, TMA, Urogenitial (03/12/2025 3:35 PM EDT) Only the most recent of2 resultswithin the time period is included. CT PCR NOT DETECTED Not Detect. [facility] Comment:A not detected test result does [...] psychologicalconsequences. NG PCR NOT DETECTED Not Detect. [facility] Comment:A not detected test result does [...] GENERAL ORDERABLES Final Result Performing Organization Address City/[facility]/ZIP Co de Phone Number [facility] [address] [place] [phone] * Culture, Urine, Routine (03/12/2025 3:35 PM EDT) Urine Urine specimen obtained by clean catch procedure / Unknown 03/12/2025 3:35 PM EDT 03/12/2025 5:33 PM EDT Comment:UACC Narrative [facility] - 03/14/2025 1:16 PM EDT Urine Culture No growth. Specimen Source: Urine clean catch Gurdeep Vogel MD LAB MICROBIOLOGY - GENERAL ORDERABLES Final Result Performing Organization Address City/[facility] Co de Phone Number [facility] [address] [place] [phone] * POCT urinalysis dipstick manually resulted [...] urine manually resulted (02/01/2025 9:50 AM EDT) Pathologist [facility] Preg Test, Ur Negative Negative, Indeterminate, None Detected, Invalid, Specimen unsatisfactory for evaluation, Weakly Positive, 2+ Urine 02/01/2025 9:50 AM EDT Filemon Monge MD POINT OF CARE TEST ENTER/ED IT ORDERABLES Final Result * Syphilis Antibodies (DPH) (02/01/2025) Pathologist [facility] Syphilis Abs Nonreactive Borderline, Nonreactive, Weakly Reactive, Inconclusive, Specimen unsatisfactory for evaluation Blood Venous blood specimen / Unknown 02/01/2025 Historical Provider LAB BLOOD ORDERABLES Shruti l Result * Hepatitis C Antibody ([facility]) (02/01/2025) Pathologist [facility] Hepatitis C Ab Nonreactive Blood 02/01/2025 Result [facility] Historical Provider LAB BLOOD ORDERABLES Shruti l Result * HIV Ab/Ag ([facility]) (02/01/2025) Pathologist [facility] HIV Ag/Ab Nonreactive Blood 02/01/2025 Historical Provider LAB BLOOD ORDERABLES Edit ed Result - Final * HPV DNA, Low/High Risk (10/01/2024 11:36 AM EST) [facility] HPV High Risk Negative Negative [facility] HPV Genotype 16 Negative Negative [facility] HPV Genotype 18 Negative Negative [facility] Comment:HPV testing performe d at [facility] (CLIA#[id number]), [address] [place] [address].Testing for HPV was performed using the An[employer] [...] CNM LAB BLOOD ORDERABLES Shruti sullivan Result Performing Organization Address City/State/[facility] Co de Phone Number [facility] [address] [place] [phone] * Pap Smear (10/01/2024 11:36 AM EST) Swab Cervix uteri structure / Unknown 10/01/2024 11:36 AM EST 10/02/2024 6:30 AM EST Narrative [facility] - 10/13/2024 12:29 PM EST ----- ------- Name: MitchellLuisCadence Age/Sex: 29/F : 1995 Unit#: [id number] Attend Dr: TRENT MADRIGAL CNM Re10/01/24 Status: DEP REF Location: HO.HHCLNP Disch: ----- ------- SPEC : [id number] RECD: 10/02/24 STATUS: KAROL SPRINGER NUM: [id number] THEODORE: 10/01/24-1136 [facility] DR: TRENT MADRIGAL CNM ENTERED: 10/02/24 [...] 10/13/24 1229 ----- ------- END OF REPORT Trent Madrigal CNM LAB CYTOLOGY ORDERABLES F inal Result [facility] [address] [place] [phone] * (ABNORMAL) Lipid Panel, Standard (09/04/2023 12:18 PM EST) Triglycerides 117 <150 mg/dL [facility] Comment:Desirable Triglyceri de: less than 150 mg/dLBorderline High Triglyceride 150-199 mg/dLHigh Triglyceride: 200-499 mg/dLVery High Triglyceride: greater than or equal to 5OO mg/dL Cholesterol 186 <200 mg/dL [facility] Comment:Desirable Cholestero l: less than 200 mg/dLBorderline High Cholesterol: 200-239 mg/dLHigh Cholesterol: greater than 239 mg/dL LDL Cholesterol Calculated 122(H) <100 mg/dL [facility] Comment:Desirable LDL: less than 100 mg/dLNear Optimal/Above Optimal LDL: 110- 129 mg/dLBorderline High LDL: 130-159 mg/dLHigh LDL: 160-189 mg/dLVery High LDL: greater than or equal to 190 mg/dL HDL Cholesterol 41 >40 mg/dL [facility] Comment:Desirable HDL: great er than 40 mg/dL Note: This HDL assay may give artificially low results in patients with liver disease. Blood Venous blood specimen / Unknown 09/04/2023 12:18 PM EST 09/04/2023 1:10 PM EST us Eli Tejada MD LAB BLOOD ORDERAB LES Final Result [facility] [address] [place], [place] [phone] from Last 3 Months or Most Recently Relevant to Health Maintenance Insurance [facility] C3 DENTAL-[facility] MEDICA[facility] STAND ADULT Care Teams Medical Sales Representative Relationship Specialty Start Date End Date Eli Kenny MD [address] [place] [address] PCP - General Internal Medicine 02/06/23 Yifan Torres, JESÚS [address] [place] [address] Registered Nurse Family Medicine 04/26/25 Svitlana Ward 04/26/25
--- OUTSIDE RECORDS SUMMARY | 2025-04-27 18:57 | XMS_ITS | Encounter Summary ---
Author Organization [employer] Address [address] [facility] [address] [place] [address] Care Team Providers Care Icing Machine Operator Name Role Phone Eli Kenny MD Primary Care Pro vider Yifan Torres RN Unavailable [phone] Svitlana Wrad Unavailable Encounter Details Date Type Department Care Team ([facility] st Contact Info) Description 02/02/2025 Orders Only [facility] [address] [place], [place] [phone] Filemon Monge MD [address] [place] [address] Breast tenderness in female (Primary Dx) Social History Tobacco Use Types [...] Procedure Name Priority Date/Time Associated Diagnosis Comments HCG, TOTAL, QN Routine 03/12/2025 3:46 PM EDT Breast tenderness in female documented in this encounter Results * hCG, Total, Quantitative (03/12/2025 3:46 PM EDT) HCG Quantitative <2 mIU/mL [facility] Comment:Weeks post LMP Appro ximate hCG(Last Menstrual Period) Range (mIU/ml)3 - 4 weeks 9 - 1304 - 5 weeks 75 - 2,6005 - 6 weeks 850 - 20,8006 - 7 weeks 4000 - 100,2007 - 12 weeks 11,500 - 289,90321 - 16 weeks 18,300 - 137,86878 - 29 weeks (2nd trimester) 1,400 - 53,47934 - 41 weeks (3rd trimester) 940 - [...] Monge MD LAB BLOOD ORDERABLES Final Result [facility] [address] [place] [address] [phone] documented in this encounter Visit Diagnoses Diagnosis Breast tenderness in female- Primary documented in this encounter Additional Health Concerns Assessment Noted Time PHQ-9 Depression Total Score: 3 05/17/20 23 1:39 PM EDT documented as of this encounter Care Teams Icing Machine Operator Relationship Specialty Start Date End Date Eli Kenny MD [address] [place] [address] PCP - General Internal Medicine 02/06/23 Yifan Torres, JESÚS [address] [place] [address] Registered Nurse Family Medicine 04/26/25 Svitlana Ward 04/26/25 documented as of this encounter
--- OUTSIDE RECORDS SUMMARY | 2025-04-27 18:57 | XMS_ITS | Clinical Summary ---
Author Organization [facility] Address [address] [place] [address] Phone Care Team Providers Care Telesales Specialist Name Role Phone Stacey Nayak NP Primary Care Provider [phone] Allergies No known active allergies Medications No known medications Active Problems No known active problems Encounters Date Type Department Care Team Description 04/24/2025 7:19 PM EDT - 04/24/2025 10:06 PM EDT Emergency [facility] Emergency [address] [place] [address] Tanvir Durand MD Migraine without aura and without status migrainosus, not intractable (Primary Dx) Discharge Disposition: Home or Self Care from Last 3 Months Surgical History Surgery Date Site/Laterality Comments TONSILLECTOMY PROCEDURE: HISTORICAL TONSILLECTOMY OTHER SURGICAL HISTORY PROCEDURE: ---- OTHER ----; COMMENT: ear surgeries SECTION PROCEDURE: [place] DELIVERY ONLY Medical History Medical History Date Comments History of tonsillectomy DX:Hist ory of tonsillectomy Venereal disease DX:Venereal dis ease Essential hypertension DX:Essent ial hypertension Family History Relation Name Status Comments Father Alive no medical prob lems Mother Alive not known Sister 1 Alive no medical prob gloria Sister 2 Alive no medical prob gloria Social History Tobacco Use Types Packs/Day Years Used Date Smoking Tobacco: Light Smoker Smokeless Tobacco: Never Alcohol Use Standard Drinks/Week Comments No 0 (1 standard drink = 0.6 oz pur e alcohol) Comments Unknown Sex and Gender Information Value Date Recorded Sex Assigned at Not on file Legal Sex Female 5:38 AM EST Gender Identity Not on file Sexual Orientation Not on file Obstetrics History Last Filed Vital Signs Vital Sign Reading [...] Mass Index 26.46 04/24/2025 6:43 PM EDT Plan of Treatment Health Maintenance Due Date Last Done Comments Pneumococcal Vaccine: Pediatrics (0 to 5 Years) and At-Risk Patients (6 to 49 Years) (1 of 2 - PCV) 2012 COVID-19 Vaccine ( season) 2024 Depression Screening 09/02/2024 Social Influencers of Health Screening 04/24/2025 Influenza Vaccine (#1) 2025 , 05/17/2023, 05/29/2016, Additional history exists DTaP,Tdap,and Td Vaccines (9 - Td or Tdap) 07/25/2026 07/25/2016, 07/01/2013, 08/14/2005, Additional history exists Cervical Cancer Screening: Pap Smear 10/01/2027 10/01/2024 Cholesterol Screening (Lipid Panel) 09/04/2028 09/04/2023 HIB Vaccines Completed 11/30/1994, 01/1994, 01/10/1994, Additional history exists IPV Vaccines Completed 01/31/1999, 01/1994, 01/10/1994, Additional history exists Meningococcal ACWY Vaccine Aged Out 10/22/2006 N o longer eligible based on patient's age to complete this topic HPV Vaccines Completed 06/21/2009, 03/02, 02/16/2009, Additional history exists Hepatitis B Vaccines Completed 11/30/2013, 08/01/1994, 1993, Additional history exists MMR Vaccines Completed 10/07/2015, 01/01, 11/30/1994 Varicella Vaccines Aged Out 10/07/2015 No longer eligible based on patient's age to complete this topic HIV Screening Completed 03/24/2025, 03/12/2025 Hepatitis C Screening Completed 03/24/2025, 025 Hepatitis A Vaccines Aged Out No long er eligible based on patient's age to complete this topic Meningococcal B Vaccine Aged Out No l onger eligible based on patient's age to complete this topic RSV Immunization Patients Under 20 months Aged Out No longer eligible based on patient's age to complete this topic Procedures Procedure Name Priority Date/Time Associated Diagnosis Comments DUCKWORTH URINE CULTURE TUBE STAT 04/24/2025 7:52 PM EDT URINALYSIS WITH REFLEX MICROSCOPIC AND CULTURE STAT 04/24/2025 7:52 PM EDT HCG QUALITATIVE, URINE STAT 7:52 PM EDT URINALYSIS WITH REFLEX MICROSCOPIC AND CULTURE STAT 04/24/2025 7:52 PM EDT MAGNESIUM Add-On 04/24/2025 7:50 PM EDT CBC WITH AUTO DIFFERENTIAL STAT 04/24/2025 7:50 PM EDT HCG, SERUM, QUALITATIVE STAT 04/24/2025 7:50 PM EDT CBC AND DIFFERENTIAL STAT 04/24/2025 7:50 PM EDT COMPREHENSIVE METABOLIC PANEL STAT 04/24/2025 7:50 PM EDT from Last 3 Months Results * (ABNORMAL) Urinalysis with reflex microscopic and culture (04/24/2025 7:52 PM EDT) Specific [place] Urine 1.037(H) 1.003 - 1.030 LAB URINALYSIS - AUTOMATED METHOD 04/24/2025 8:22 PM EDT [facility] pH, Urine 7.0 5.0 - 8.0 pH LAB URINALYSIS - AUTOMATED METHOD 04/24/2025 8:22 PM EDT [facility] Leukocytes, Urine Negative Negative LAB URINALYSIS - AUTOMATED METHOD 04/24/2025 8:22 PM [facility] Nitrite, Urine Negative Negative LAB URINALYSIS - AUTOMATED METHOD 04/24/2025 8:22 PM [facility] Protein, Urine Trace <=Trace mg/dL LAB URINALYSIS - AUTOMATED METHOD 04/24/2025 8:22 PM [facility] Glucose, Urine Negative Negative mg/dL LAB URINALYSIS - AUTOMATED METHOD 04/24/2025 8:22 PM [facility] Ketones, Urine Trace(A) Negative mg/dL LAB URINALYSIS - AUTOMATED METHOD 04/24/2025 8:22 PM [facility] Urobilinogen, Urine 1.0 0.2 - 1.0 mg/dL LAB URINALYSIS - AUTOMATED METHOD 04/24/2025 8:22 PM [facility] Bilirubin, Urine Negative Negative LAB URINALYSIS - AUTOMATED METHOD 04/24/2025 8:22 PM [facility] Blood, Urine Trace(A) Negative LAB URINALYSIS - AUTOMATED METHOD 04/24/2025 8:22 PM [facility] RBC, Urine 4.2(H) 0 - 4 /HPF LAB URINALYSIS - AUTOMATED METHOD 04/24/2025 8:22 PM [facility] WBC, Urine 0.9 0 - 4 /HPF LAB URINALYSIS - AUTOMATED METHOD 04/24/2025 8:22 PM [facility] Squamous Epithelial, Urine >100(H) 0 - 60 /LPF LAB URINALYSIS - AUTOMATED METHOD 04/24/2025 8:22 PM [facility] Bacteria, Urine Few(A) Negative /HPF LAB URINALYSIS - AUTOMATED METHOD 04/24/2025 8:22 PM [facility] Hyaline Casts, Urine 0.8 0 - 3 /LPF LAB URINALYSIS - AUTOMATED METHOD 04/24/2025 8:22 PM EDT [facility] Urine Urine specimen obtained by clean catch procedure / Unknown Non-blood Collection / Unknown 04/24/2025 7:52 PM EDT 04/24/2025 8:05 PM EDT us Tanvir Durand MD LAB URINE ORDERABLES Final Res ult Performing Organization Address [facility]/ZIP Co de Phone Number [facility] [address] [place] [address], [place] [phone] * [place] urine culture tube (04/24/2025 7:52 PM EDT) Extra Tube Hold for add-ons. 04/24/2025 10:02 PM EDT [facility] Comment:Auto resulted. Urine Urine specimen obtained by clean catch procedure / Unknown Non-blood Collection / Unknown 04/24/2025 7:52 PM EDT 04/24/2025 8:05 PM EDT Tanvir Durand MD LAB URINE ORDERABLES Final Res ult Performing Organization Address [facility] de Phone Number [facility] [address] [place] [address], [place] [phone] * HCG qualitative, urine (04/24/2025 7:52 PM EDT) Preg Test, Ur Negative Negative 04/24/2025 8:27 PM EDT [facility] Urine Urine specimen obtained by clean catch procedure / Unknown Non-blood Collection / Unknown 04/24/2025 7:52 PM EDT 04/24/2025 8:05 PM EDT us Tanvir Durand MD LAB URINE ORDERABLES Final Res ult Performing Organization Address City/[facility]/ZIP Co de Phone Number [facility] [address] [place] [address], [place] [phone] * (ABNORMAL) CBC auto differential (04/24/2025 7:50 PM EDT) [facility] WBC 7.2 4.8 - 10.8 K/mcL LAB HEMETOLOGY METHOD 04/24/2025 8:58 PM EDT [facility] RBC 4.90(H) 3.80 - 4.80 M/mcL LAB HEMETOLOGY METHOD 04/24/2025 8:58 PM EDT [facility] Hemoglobin 14.5 11.5 - 16.0 g/dL LAB HEMETOLOGY METHOD 04/24/2025 8:58 PM EDT [facility] Hematocrit 43.6 35.0 - 47.0 % LAB HEMETOLOGY METHOD 04/24/2025 8:58 PM EDT [facility] MCV 89.2 79.0 - 98.0 FL LAB HEMETOLOGY METHOD 04/24/2025 8:58 PM EDT [facility] MCH 29.7 27.0 - 32.0 pcg LAB HEMETOLOGY METHOD 04/24/2025 8:58 PM EDT [facility] MCHC 33.3 32.0 - 37.0 g/dL LAB HEMETOLOGY METHOD 04/24/2025 8:58 PM EDT [facility] RDW 14.3 11.0 - 15.0 % LAB HEMETOLOGY METHOD 04/24/2025 8:58 PM EDT [facility] Platelets 136 130 - 400 K/mcL LAB HEMETOLOGY METHOD 04/24/2025 8:58 PM EDT [facility] MPV 13.2(H) 7.0 - 11.0 FL LAB HEMETOLOGY METHOD 04/24/2025 8:58 PM EDT [facility] NRBC 0.0 <1.0 % LAB HEMETOLOGY METHOD 04/24/2025 8:58 PM EDT [facility] NRBC Absolute 0.00 <0.10 K/mcL LAB HEMETOLOGY METHOD 04/24/2025 8:58 PM EDT [facility] Neutrophils Relative 54.3 % LAB HEMETOLOGY METHOD 04/24/2025 8:58 PM EDT [facility] Lymphocytes Relative 39.0 % LAB HEMETOLOGY METHOD 04/24/2025 8:58 PM EDT [facility] Monocytes Relative 4.7 % LAB HEMETOLOGY METHOD 04/24/2025 8:58 PM EDT [facility] Eosinophils Relative 1.4 % LAB HEMETOLOGY METHOD 04/24/2025 8:58 PM EDT [facility] Basophils Relative 0.3 % LAB HEMETOLOGY METHOD 04/24/2025 8:58 PM EDT [facility] Immature Granulocytes Relative 0.3 % LAB HEMETOLOGY METHOD 04/24/2025 8:58 PM EDT [facility] Neutrophils Absolute 3.91 1.50 - 7.00 K/mcL LAB HEMETOLOGY METHOD 04/24/2025 8:58 PM EDT [facility] Lymphocytes Absolute 2.81 1.00 - 5.00 K/mcL LAB HEMETOLOGY METHOD 04/24/2025 8:58 PM EDT [facility] Monocytes Absolute 0.34 0.20 - 1.00 K/mcL LAB HEMETOLOGY METHOD 04/24/2025 8:58 PM EDT [facility] Eosinophils Absolute 0.10 0.00 - 0.50 K/mcL LAB HEMETOLOGY METHOD 04/24/2025 8:58 PM EDT [facility] Basophils Absolute 0.02 0.00 - 0.20 K/mcL LAB HEMETOLOGY METHOD 04/24/2025 8:58 PM EDT [facility] Immature Granulocytes Absolute 0.02 0.00 - 0.03 K/mcL LAB HEMETOLOGY METHOD 04/24/2025 8:58 PM EDT [facility] Blood Venous blood specimen / Unknown Venipuncture / Unknown 04/24/2025 7:50 PM EDT 04/24/2025 8:05 PM EDT us Tanvir Durand MD LAB BLOOD ORDERABLES Final Res ult Performing Organization Address City/[facility]/ZIP Co de Phone Number [facility] [address] [place] [address], [place] [phone] * hCG, serum, qualitative (04/24/2025 7:50 PM EDT) Pathologist [facility] hCG Qual Negative Negative 04/24/2025 8:27 PM EDT [facility] Blood Venous blood specimen / Unknown Venipuncture / Unknown 04/24/2025 7:50 PM EDT 04/24/2025 8:05 PM EDT us Tanvir Durand MD LAB BLOOD ORDERABLES Final Res ult Performing Organization Address [facility]/ZIP Co de Phone Number [facility] [address] [place] [address], [place] [phone] * Magnesium (04/24/2025 7:50 PM EDT) Magnesium 2.1 1.9 - 2.6 mg/dL LAB CHEMISTRY METHOD 04/24/2025 9:25 PM EDT [facility] Blood Venous blood specimen / Unknown Venipuncture / Unknown 04/24/2025 7:50 PM EDT 04/24/2025 8:05 PM EDT us Tanvir Durand MD LAB BLOOD ORDERABLES Final Res ult [facility] [address] [place] [address], [place] [phone] * Comprehensive Metabolic Panel (CMP) (04/24/2025 7:50 PM EDT) Sodium 141 133 - 145 mmol/L LAB CHEMISTRY METHOD 04/24/2025 8:32 PM [facility] Potassium 4.2 3.5 - 5.5 mmol/L LAB CHEMISTRY METHOD 04/24/2025 8:32 PM [facility] Comment:Hemolysis present Chloride 109 96 - 110 mmol/L LAB CHEMISTRY METHOD 04/24/2025 8:32 PM [facility] CO2 27 21 - 32 mmol/L LAB CHEMISTRY METHOD 04/24/2025 8:32 PM [facility] Anion Gap 5 3 - 11 LAB CHEMISTRY METHOD 04/24/2025 8:32 PM [facility] Glucose 98 70 - 100 mg/dL LAB CHEMISTRY METHOD 04/24/2025 8:32 PM [facility] BUN 15 5 - 25 mg/dL LAB CHEMISTRY METHOD 04/24/2025 8:32 PM [facility] Creatinine 1.04 0.50 - 1.10 mg/dL LAB CHEMISTRY METHOD 04/24/2025 8:32 PM [facility] eGFR 74 >=60 mL/min/1. 73m2 LAB CHEMISTRY METHOD 04/24/2025 8:32 PM [facility] Comment:Calculation based on the Chronic Kidney Disease Epidemiology Collaboration (CKD-EPI) equation refit without adjustment for race. BUN/Creatinine Ratio 14.4 LAB CHEMISTRY METHOD 04/24/2025 8:32 PM [facility] Calcium 8.6 8.5 - 10.5 mg/dL LAB CHEMISTRY METHOD 04/24/2025 8:32 PM [facility] AST (SGOT) 20 10 - 42 unit/L LAB CHEMISTRY METHOD 04/24/2025 8:32 PM [facility] Comment:Hemolysis present ALT (SGPT) 27 10 - 60 unit/L LAB CHEMISTRY METHOD 04/24/2025 8:32 PM EDT [facility] Alkaline Phosphatase 80 42 - 121 unit/L LAB CHEMISTRY METHOD 04/24/2025 8:32 PM EDT [facility] Total Protein 6.8 6.0 - 8.0 g/dL LAB CHEMISTRY METHOD 04/24/2025 8:32 PM EDT [facility] Albumin 3.7 3.2 - 5.0 g/dL LAB CHEMISTRY METHOD 04/24/2025 8:32 PM EDT [facility] Total Bilirubin 0.4 0.0 - 1.4 mg/dL LAB CHEMISTRY METHOD 04/24/2025 8:32 PM EDT [facility] Blood Venous blood specimen / Unknown Venipuncture / Unknown 04/24/2025 7:50 PM EDT 04/24/2025 8:05 PM EDT us Tanvir Durand MD LAB BLOOD ORDERABLES Final Res ult [facility] [address] [place] [address], [place] [phone] from Last 3 Months Insurance MEDICAID - [place] Care Teams Telesales Specialist Relationship Specialty Start Date End Date Stacey Nayak NP [address] [place] [phone] PCP - General 10/09/16
--- OUTSIDE RECORDS SUMMARY | 2025-04-27 18:57 | XMS_ITS | Encounter Summary ---
Author Organization [facility] Address [address] [place] [address] Phone Care Team Providers Care Retail Department Manager Name Role Phone Ericka Cheek MD Primary Care Provider [phone] Encounter Details Date Type Department Care Team (Late st Contact Info) Description 03/12/2012 Documentation EM Family Medicine [address] [place] [address] Family Medicine, Physician [address] [place], [place] [phone] Social History Tobacco Use Types Packs/Day Years [...] on filedocumented in this encounter Care Teams Retail Department Manager Relationship Specialty Start Date End Date Ericka Cheek MD [address] [place] [address] [place] [address] PCP - General 04/12/17 02/28/23 documented as of this encounter
--- OUTSIDE RECORDS SUMMARY | 2025-04-27 18:57 | XMS_ITS | Encounter Summary ---
Author Organization [facility] Address [address] [place] [address] Phone Care Team Providers Care Simulation Tech Name Role Phone Ericka Cheek MD Primary Care Provider [phone] Encounter Details Date Type Department Care Team (Late st Contact Info) Description 02/21/2011 Documentation EM Family Medicine [address] [place] [address] Family Medicine, Physician [address] [place], [place] [phone] Social History Tobacco Use Types Packs/Day Years [...] on filedocumented in this encounter Care Teams Simulation Tech Relationship Specialty Start Date End Date Ericka Cheek MD [address] [place] [address] [place] [address] PCP - General 04/12/17 02/28/23 documented as of this encounter
--- OUTSIDE RECORDS SUMMARY | 2025-04-27 18:57 | XMS_ITS | Encounter Summary ---
Author Organization [facility] Address [address] [place] [address] Phone Care Team Providers Care Fern Gatherer Name Role Phone Ericka Cheek MD Primary Care Provider [phone] Encounter Details Date Type Department Care Team (Late st Contact Info) Description 05/28/2011 Documentation EM Family Medicine [address] [place] [address] Family Medicine, Physician [address] [place], [place] [phone] Social History Tobacco Use Types Packs/Day Years [...] on filedocumented in this encounter Care Teams Fern Gatherer Relationship Specialty Start Date End Date Ericka Cheek MD [address] [place] [address] [place] [address] PCP - General 04/12/17 02/28/23 documented as of this encounter
--- OUTSIDE RECORDS SUMMARY | 2025-04-27 18:57 | XMS_ITS | Encounter Summary ---
Author Organization [facility] Address [address] [place] [address] Phone Care Team Providers Care Wire Fence Erector Name Role Phone Ericka Cheek MD Primary Care Provider [phone] Encounter Details Date Type Department Care Team (Late st Contact Info) Description 08/20/2011 Documentation EM Family Medicine [address] [place] [address] Family Medicine, Physician [address] [place], [place] [phone] Social History Tobacco Use Types Packs/Day Years [...] on filedocumented in this encounter Care Teams Wire Fence Erector Relationship Specialty Start Date End Date Ericka Cheek MD [address] [place] [address] [place] [address] PCP - General 04/12/17 02/28/23 documented as of this encounter
--- OUTSIDE RECORDS SUMMARY | 2025-04-27 18:57 | XMS_ITS | Encounter Summary ---
Author Organization [facility] Address [address] [place] [address] 7 [place] [address] Care Team Providers Care Clinical Project Coordinator Name Role Phone Eli Kenny MD Primary Care Pro vider Yifan Torres RN Unavailable Svitlana Ward Unavailable Reason for Visit * Reason Onset Date Comments Nurse Triage 04/26/2025 Encounter Details Date Type Department Care Team ([facility] Contact Info) Description 04/26/2025 Telephone [facility] [address] [place] [address] Eli Kenny MD [address] [place], [place] [phone] Nurse Triage Social History Tobacco Use Types [...] with others, in a hotel, in a penitentiary, living outside on the street, on a [...] encounter Miscellaneous Notes * Telephone Encounter - Susan Douglass RN - 04/26/2025 3:23 PM EDT Triage call, Pt was seen in [facility] ED 04/24/25 for migraine headache. Report is on the chart. Pt reports that the headache goes away but comes back which has never happened before. Pt reports now the pain though it starts in front of head will radiate down to neck area. Pt would like to see provider. Pt does take tylenol/motrin with some effect but, the headache keeps coming back. ASK apt with Dr. Nino 04/27/25 @ 130pm. Pt agrees with disposition and insurance is verified as active prior to booking. Pt is advised to try a cold pack on forhead and laying down for about 20min. Pt agrees to try this. Protocol Used: Headache (Adult) Protocol-Based Disposition: See in Office or Video Visit Today or Tomorrow Video visit not offered Positive Triage Question: * Moderate headache (e.g., interferes with normal activities) present > 24 hours and unexplained * All higher-acuity triage questions were negative Care Advice Discussed: * Reassurance and Education - Migraine Headache * Pain Medicine for Migraine * Pain Medicines * Rest for Migraine Headache * Cold Pack for Headache * Headache Diary * Reasons To Call Back - Severe headache lasts over 2 hours after pain medicine - Headache lasts over 72 hours - Stiff neck occurs (can't touch chin to chest) - You become worse * Telephone Encounter - Timothy Cervantes - 04/26/2025 2:53 PM EDT Patient calling to report ED visit on : Date: Hospital: [facility] Seen for: Migrane Symptomatic Yes *if yes message should go to Triage Contact pt at [phone] documented in this encounter Plan of Treatment Not on file documented as of this encounter Visit Diagnoses Not on filedocumented in this encounter Additional Health Concerns Assessment Noted Time PHQ-9 Depression Total Score: 3 03/16/20 25 10:37 AM EDT documented as of this encounter Care Teams Clinical Project Coordinator Relationship Specialty Start Date End Date Eli Kenny MD [address] [place] [address] PCP - General Internal Medicine 02/06/23 Yifan Torres RN [address] [place] [address] Registered Nurse Family Medicine 04/26/25 Svitlana Ward 04/26/25 documented as of this encounter
--- OUTSIDE RECORDS SUMMARY | 2025-04-27 18:57 | XMS_ITS | Encounter Summary ---
Author Organization [facility] Address [address] [place] [address] Phone Care Team Providers Care Director Ship Name Role Phone Ericka Cheek MD Primary Care Provider [phone] Encounter Details Date Type Department Care Team (Late st Contact Info) Description 02/21/2011 Documentation EM Family Medicine [address] [place] [address] Family Medicine, Physician [address] [place], [place] [phone] Social History Tobacco Use Types Packs/Day Years [...] filedocumented in this encounter Care Teams Director Ship Relationship Specialty Start Date End Date Ericka Cheek MD [address] [place] [address] [place] [address] PCP - General 04/12/17 02/28/23 documented as of this encounter
--- OUTSIDE RECORDS SUMMARY | 2025-04-27 18:57 | XMS_ITS | Encounter Summary ---
Author Organization [facility] Address [address] [place] [address] Care Team Providers Care Studio Technician Name Role Phone Eli Kenny MD Primary Care Pro vider Yifan Torres RN Unavailable [phone] Svitlana Ward Unavailable Reason for Visit * Reason Onset Date Comments Results 03/25/2025 Encounter Details Date Type Department Care Team ([facility] st Contact Info) Description 03/25/2025 Results Follow-Up [facility] [address] [place] [address] Anu Ramirez CNM [address] [place] [address] Herpes Simplex Virus 1 and 2 (IgG), Type-Specific Antibodies Social History Tobacco Use Types Packs/Day Years [...] as of this encounter Miscellaneous Notes * Result Encounter Note - Anu Ramirez CNM - 03/29/2025 10:30 AM EDT Sounds good - thanks! 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 Pt reports having finished Valtrex medication and is interested in daily medication to prevent transmission and outbreaks, has numerous questions, scheduled for follow up tele visit tomorrow 3:15pm to discuss questions further. Pt asked about transmission to partners and children, advised again to discuss daily medicationwith provider, use condoms, and to be cautious when oral outbreak. Pt verbalized understanding. documented in this encounter Plan of Treatment Not on file documented as of this encounter Visit Diagnoses Not on filedocumented in this encounter Additional Health Concerns Assessment Noted Time PHQ-9 Depression Total Score: 3 03/16/20 10:37 AM EDT documented as of this encounter Care Teams Studio Technician Relationship Specialty Start Date End Date Eli Kenny MD [address] [place] [phone] PCP - General Internal Medicine 02/06/23 Yifan Torres RN [address] [place] [address] Registered Nurse Family Medicine 04/26/25 Svitlana Ward 04/26/25 documented as of this encounter
--- OUTSIDE RECORDS SUMMARY | 2025-04-27 18:57 | XMS_ITS | Encounter Summary ---
Author Organization [facility] Address [address] [place] [address] Phone Care Team Providers Care Manager Strategic Name Role Phone Ericka Cheek MD Primary Care Provider [phone] Encounter Details Date Type Department Care Team (Late st Contact Info) Description 12/06/2010 Documentation EM Family Medicine [address] [place] [address] Family Medicine, Physician [address] [place], [place] [phone] Social History Tobacco Use Types Packs/Day Years [...] filedocumented in this encounter Care Teams Manager Strategic Relationship Specialty Start Date End Date Ericka Cheek MD [address] [place] [address] [place] [address] PCP - General 04/12/17 02/28/23 documented as of this encounter
--- OUTSIDE RECORDS SUMMARY | 2025-04-27 18:57 | XMS_ITS ---
Author Organization [employer] Address [address] [place] [address] Care Team Providers Care Poultry Grader Name Role Phone Eli Kenny MD Primary Care Pro vider Yifan Torres RN Unavailable [phone] Svitlana Ward Unavailable CHW Complex Status:Outreach In Progress (Enrolling) Start date:04/26/2025 Enrollment reason:ADT Feed Overview [facility] 04/24/25 Case Team Name Relationship Phone Svitlana Ward(Responsible Staff) Continued Care and Services Coordination
--- OUTSIDE RECORDS SUMMARY | 2025-04-27 18:57 | XMS_ITS | Encounter Summary ---
Author Organization [facility] Address [address] [place] [address] Phone Care Team Providers Care Hand Funnel Coater Name Role Phone Ericka Cheek MD Primary Care Provider [phone] Encounter Details Date Type Department Care Team (Late st Contact Info) Description 12/16/2013 Documentation EM Family Medicine [address] [place] [address] Family Medicine, Physician [address] [place], [place] [id number] Social History Tobacco Use Types Packs/Day Years [...] on filedocumented in this encounter Care Teams Hand Funnel Coater Relationship Specialty Start Date End Date Ericka Cheek MD [address] [place] [address] [place] [address] PCP - General 04/12/17 02/28/23 documented as of this encounter
--- OUTSIDE RECORDS SUMMARY | 2025-04-27 18:57 | XMS_ITS | Encounter Summary ---
Author Organization [employer] Address [address] [place] [address] 7 [place] [address] Care Team Providers Care Correspondence Analyst Name Role Phone Eli Kenny MD Primary Care Pro vider Yifan Torres RN Unavailable [phone] Svitlana Ward Unavailable Reason for Visit * Reason Comments Care Coordination C3 MADELINE bahena chart review Encounter Details Date Type Department Care Team (Latest Contact Info) Description 04/26/2025 Patient Outreach [facility] [address] [place] [address] Eli Kenny MD [address] [place] [address] Care Coordination (C3 MADELINE Ward chart review) Social History Tobacco Use Types [...] others, in a hotel, in a senior care, living outside on the street, on a [...] Progress Notes * Svitlana Ward - 04/26/2025 11:54 AM EDT ADT-[facility] ED 04/24/25. Please outreach patient for enrollment. CHW Svitlana Ward reviewed chart review completed by KARLEE Torres RN documented in this encounter Plan of Treatment Not on file documented as of this encounter Visit Diagnoses Not on filedocumented in this encounter Additional Health Concerns Assessment Noted Time PHQ-9 Depression Total Score: 3 03/16/20 10:37 AM EDT documented as of this encounter Care Teams Correspondence Analyst Relationship Specialty Start Date End Date Eli Kenny MD [address] [place] [address] PCP - General Internal Medicine 02/06/23 Yifan Torres, RN [address] [place] [address] Registered Nurse Family Medicine 04/26/25 Svitlana Ward 04/26/25 documented as of this encounter
--- OUTSIDE RECORDS SUMMARY | 2025-04-27 18:57 | XMS_ITS | Encounter Summary ---
Author Organization [facility] Address [address] [place] [address] Phone Care Team Providers Care Wind Farm Electrical Systems Designer Name Role Phone Ericka Cheek MD Primary Care Provider [phone] Encounter Details Date Type Department Care Team (Late st Contact Info) Description 05/24/2011 Documentation EM Family Medicine [address] [place] [address] Family Medicine, Physician [address] [place], [place] [id number] Social History Tobacco Use Types Packs/Day Years [...] on filedocumented in this encounter Care Teams Wind Farm Electrical Systems Designer Relationship Specialty Start Date End Date Ericka Cheek MD [address] [place] [address] [place] [address] PCP - General 04/12/17 02/28/23 documented as of this encounter
--- OUTSIDE RECORDS SUMMARY | 2025-04-27 18:57 | XMS_ITS | Clinical Summary ---
Author Organization [facility] Address [address] [place] [address] Phone Care Team Providers Care Labor Supervisor Name Role Phone Unavailable Primary Care Provider Unavailabl e Immunizations Immunization Administration Dates Next Due DTP 03/01/1995, 4,01/10/1994, [...] 08/14/2015 08/14/2005, 01/31/1999, 03/01/1995, Additional history exists COVID-19 Vaccine ( season) 2024 Influenza Vaccines (#1) 2025 05/23/2011, 04/25 Hepatitis B Vaccines Completed 08/01/1994, 1993, 1993 [...] complete this topic Procedures * Due to [place] [employer] law, this organization might not be sharing sensitive test results. Procedure Name Priority Date/Time Associated Diagnosis Comments CHLAMYDIA AND GONORRHEA, AMPLIFIED Routine 05/24/2011 1:14 PM EDT from Last 3 Months or Most Recently Relevant to Health Maintenance Results * Due to [place] [employer] law, this organization might not be sharing sensitive test results. * Chlamydia and Gonorrhoea, Amplified (05/24/2011 1:14 PM EDT) Pathologist [facility] URINE GC AMP PROBE NEGATIVE [facility] Comment: NO NEISSERIA GONORRHOEAE RNA DETECTED IN THIS PATIENT'S SAMPLE. (REFERENCE RANGE/NORMAL VALUE: NOT DETECTED) NOTE: THIS TEST USES MILL STENCILER MEDIATED AMPLIFICATION METHOD TO DETECT rRNA FROM [...] OTHER AGENTS. URINE CHLAMYDIA AMP PROBE NEGATIVE [facility] Comment: NO CHLAMYDIA TRACHOMATIS RNA DETECTED IN THIS PATIENT'S SAMPLE. (REFERENCE RANGE/NORMAL VALUE: NOT DETECTED) 05/24/2011 1:14 PM EDT Narrative [facility] - 05/24/2011 1:14 PM EDT URINE CHLAMYDIA GC AMP PROBE us Heather Maynard NP LAB MICROBIOLOGY - GENERAL ORD ERABLES Final Result [facility] [address] [place] [address], [place] from Last 3 Months or Most Recently Relevant to Health Maintenance
--- OUTSIDE RECORDS SUMMARY | 2025-04-27 18:57 | XMS_ITS | Encounter Summary ---
Author Organization [facility] Address [address] [place] [address] Phone Care Team Providers Care Irrigation Service Technician Name Role Phone Ericka Cheek MD Primary Care Provider [phone] Encounter Details Date Type Department Care Team (Late st Contact Info) Description 02/21/2011 Documentation EM Family Medicine [address] [place] [address] Family Medicine, Physician [address] [place], [place] [phone] Social History Tobacco Use Types Packs/Day Years [...] on filedocumented in this encounter Care Teams Irrigation Service Technician Relationship Specialty Start Date End Date Ericka Cheek MD [address] [place] [address] [place] [address] PCP - General 04/12/17 02/28/23 documented as of this encounter
--- OUTSIDE RECORDS SUMMARY | 2025-04-27 18:57 | XMS_ITS | Encounter Summary ---
Author Organization [facility] Address [address] [place] [address] Phone Care Team Providers Care Voice Network Administrator Name Role Phone Ericka Cheek MD Primary Care Provider [phone] Encounter Details Date Type Department Care Team (Late st Contact Info) Description 05/28/2011 Documentation EM Family Medicine [address] [place] [address] Family Medicine, Physician [address] [place], [place] [phone] Social History Tobacco Use Types Packs/Day Years [...] on filedocumented in this encounter Care Teams Voice Network Administrator Relationship Specialty Start Date End Date Ericka Cheek MD [address] [place] [address] [place] [address] PCP - General 04/12/17 02/28/23 documented as of this encounter
--- OUTSIDE RECORDS SUMMARY | 2025-04-27 18:57 | XMS_ITS | Encounter Summary ---
Author Organization [employer] Address [address] [facility] 7t [place] [address] Care Team Providers Care Shredded Filler Machine Wrapper Layer Name Role Phone Eli Kenny MD Primary Care Pro vider Yifan Torres RN Unavailable [phone] Svitlana Ward Unavailable Encounter Details Date Type Department Care Team (Latest Contact Info) Description 03/17/2025 Results Follow-Up [facility] & P[facility]S [address] [place], [place] [phone] Filemon Monge MD [address] [place] [address] hCG, Total, Quantitative Social History Tobacco Use Types Packs/Day Years [...] documented as of this encounter Care Teams Shredded Filler Machine Wrapper Layer Relationship Specialty Start Date End Date Eli Kenny MD [address] [place] [address] PCP - General Internal Medicine 02/06/23 Yifan Torres, JESÚS [address] [place] [address] Registered Nurse Family Medicine 04/26/25 Svitlana Ward 04/26/25 documented as of this encounter
--- OUTSIDE RECORDS SUMMARY | 2025-04-27 18:57 | XMS_ITS | Encounter Summary ---
Author Organization [facility] Address [address] [facility] 7t [place] [address] Care Team Providers Care Gis Physical Scientist Name Role Phone Eli Kenny MD Primary Care Pro vider Yifan Torres RN Unavailable [phone] Svitlana Ward Unavailable Reason for Visit * Reason Comments Med Refill Encounter Details Date Type Department Care Team ([facility] st Contact Info) Description 03/22/2023 Refill [facility] [address] [place] [address] Edel Montenegro DO [address] [place] [address] Social History Tobacco Use Types Packs/Day Years [...] on filedocumented in this encounter Care Teams Gis Physical Scientist Relationship Specialty Start Date End Date Eli Kenny MD [address] [place] [address] PCP - General Internal Medicine 02/06/23 Yifan Torres, JESÚS [address] [place] [address] Registered Nurse Family Medicine 04/26/25 Svitlana Ward 04/26/25 documented as of this encounter
--- OUTSIDE RECORDS SUMMARY | 2025-04-27 18:57 | XMS_ITS | Encounter Summary ---
Author Organization [employer] Address [address] [facility] 7 [place] [address] Care Team Providers Care Weight Tester Name Role Phone Eli Kenny MD Primary Care Pro vider Yifan Torres RN Unavailable [phone] Svitlana Ward Unavailable Reason for Visit * Reason Onset Date Comments Nurse Triage 03/15/2025 Encounter Details Date Type Department Care Team ([facility] Contact Info) Description 03/15/2025 Telephone [facility] [address] [place] [address] Eli Kenny MD [address] [place], [place] [phone] Nurse Triage Social History Tobacco Use Types [...] with others, in a hotel, in a residential, living outside on the street, on a [...] AM EDT documented as of this encounter Functional Status * Over the past 2 weeks, how often have you been bothered by any of the following problems? Question Answer Date of Assessment Author Patient Health Questionnaire -2 Score 1 03/16/2025 10:37 AM EDT Yessi Dubose [place] * Little interest or pleasure in doing things Answer Date of Assessment Author Not at all 03/16/2025 10:37 AM EDT Yessi Dubose [place] * Feeling down, depressed, or hopeless Answer Date of Assessment Author Several days 03/16/2025 10:37 AM EDT Yessi Dubose [place] * Trouble falling or staying asleep, or sleeping too much Answer Date of Assessment Author Several days 03/16/2025 10:37 AM EDT Yessi Dubose [place] * Feeling tired or having little energy Answer Date of Assessment Author Not at all 03/16/2025 10:37 AM EDT Yessi Dubose [place] * Poor appetite or overeating Answer Date of Assessment Author Not at all 03/16/2025 10:37 AM Yessi Cardoza [place] * Feeling bad about yourself - or that you are a failure or have let yourself or your family down Answer Date of Assessment Author Several days 03/16/2025 10:37 AM Yessi Cardoza MA * Trouble concentrating on things, such as reading the newspaper or watching television Answer Date of Assessment Author Not at all 03/16/2025 10:37 AM Yessi Cardoza MA * Moving or speaking so slowly that other people could have noticed? Or the opposite - being so fidgety or restless that you have been moving around a lot more than usual. Answer Date of Assessment Author Not at all 03/16/2025 10:37 AM Yessi Cardoza MA * Thoughts that you would be better off or hurting yourself in some way Answer Date of Assessment Author Not at all 03/16/2025 10:37 AM Yessi Cardoza MA * Patient Health Questionnaire-9 Score Answer Date of Assessment Author 3 03/16/2025 10:37 AM Yessi Cardoza MA * Over the last 2 weeks, how often have you been bothered by any of the following problems? Question Answer Date of Assessment Author Feeling nervous, anxious, or on edge 0 03/16/2025 10:34 AM Yessi Cardoza MA Not being able to stop or co ntrol worrying 1 03/16/2025 10:34 AM Yessi Cardoza MA Worrying too much about diff erent things 1 03/16/2025 10:34 AM Yessi Cardoza MA Trouble relaxing 1 03/16/2025 10:34 AM Yesis Cardoza MA Being so restless that it is hard to sit still 0 03/16/2025 10:34 AM Yessi Cardoza MA Becoming easily annoyed or irritable 1 03/16/2025 10:34 AM Yessi Cardoza MA Feeling afraid as if somethi ng awful might happen 0 03/16/2025 10:34 AM Yessi Cardoza MA CHRISSY-7 Total Score 4 03/16/2025 10:34 AM EDT Yessi Dubose MA documented as of this encounter Miscellaneous Notes * Telephone Encounter - Kristophertim Chanel - 03/15/2025 8:19 AM EDT Symptom: Rectal Symptoms - Not Bleeding Outcome: Schedule an urgent appointment (within 1 hour) or talk to a nurse or provider soon Reason: Severe pain now The caller accepted this outcome. Contact pt at [phone] documented in this encounter Plan of Treatment Not on file documented as of this encounter Visit Diagnoses Not on filedocumented in this encounter Additional Health Concerns Assessment Noted Time PHQ-9 Depression Total Score: 3 05/17/20 1:39 PM EDT documented as of this encounter Care Teams Weight Tester Relationship Specialty Start Date End Date Eli Kenny MD [address] [place] [address] PCP - General Internal Medicine 02/06/23 Yifan Torres, JESÚS [address] [place] [address] Registered Nurse Family Medicine 04/26/25 Svitlana Ward 04/26/25 documented as of this encounter
--- OUTSIDE RECORDS SUMMARY | 2025-04-27 18:57 | XMS_ITS | Encounter Summary ---
Author Organization [employer] Address [address] [facility] [address] 7t [place] [address] Care Team Providers Care Cherry Cutter Name Role Phone Eli Kenny MD Primary Care Pro vider Yifan Torres RN Unavailable [phone] Svitlana Ward Unavailable Encounter Details Date Type Department Care Team (Latest Contact Info) Description 04/27/2025 Travel Social History Tobacco Use Types Packs/Day [...] with others, in a hotel, in a fdc, living outside on the street, on a [...] documented as of this encounter Care Teams Cherry Cutter Relationship Specialty Start Date End Date Eli Kenny MD [address] [place] [address] PCP - General Internal Medicine 02/06/23 Yifan Torres, RN [address] [place] [address] Registered Nurse Family Medicine 04/26/25 Svitlana Ward 04/26/25 documented as of this encounter
--- OUTSIDE RECORDS SUMMARY | 2025-04-27 18:57 | XMS_ITS | Encounter Summary ---
Author Organization [facility] Address [address] [place] [address] Phone Care Team Providers Care Customer Service Manager Name Role Phone Ericka Cheek MD Primary Care Provider Encounter Details Date Type Department Care Team (Late st Contact Info) Description 04/18/2017 Conversion Encounter [facility] [address] [place] [address] Social History Tobacco Use Types Packs/Day Years [...] on filedocumented in this encounter Care Teams Customer Service Manager Relationship Specialty Start Date End Date Ericka Cheek MD [address] [place] [address] PCP - General 04/12/17 02/28/23 documented as of this encounter
--- OUTSIDE RECORDS SUMMARY | 2025-04-27 18:57 | XMS_ITS | Encounter Summary ---
Author Organization [employer] Address [address] [facility] 7t [place] [address] Care Team Providers Care Lead Warehouse Associate Name Role Phone Eli Kenny MD Primary Care Pro vider Yifan Torres RN Unavailable [phone] Svitlana Ward Unavailable Reason for Visit * Reason Onset Date Comments medication 07/19/2023 Encounter Details Date Type Department Care Team ([facility] st Contact Info) Description 07/19/2023 Telephone [facility] [address] [place] [address] Alfredito Diaz DDS [address] [place], [place] [phone] medication Social History Tobacco Use Types Packs/Day [...] is not working. Patient was seen with student documented in this encounter Plan of Treatment Not on file documented as of this encounter Visit Diagnoses Not on filedocumented in this encounter Additional Health Concerns Assessment Noted Time PHQ-9 Depression Total Score: 3 05/17/20 23 1:39 PM EDT documented as of this encounter Care Teams Lead Warehouse Associate Relationship Specialty Start Date End Date Eli Kenny MD [address] [place] [address] PCP - General Internal Medicine 02/06/23 Yifan Torres, JESÚS [address] [place] [address] Registered Nurse Family Medicine 04/26/25 Svitlana Ward 04/26/25 documented as of this encounter
--- OUTSIDE RECORDS SUMMARY | 2025-04-27 18:58 | XMS_ITS | Encounter Summary ---
Author Organization [employer] Address [address] [place] [address] 7 [place] [address] Care Team Providers Care Heat Treater Head Name Role Phone Eli Kenny MD Primary Care Pro vider Yifan Torres RN Unavailable [phone] Svitlana Ward Unavailable Encounter Details Date Type Department Care Team (Late st Contact Info) Description 04/26/2025 Patient Outreach [facility] [address] [place] [address] Eli Kenny MD [address] [place] [address] Social History Tobacco Use Types Packs/Day Years [...] with others, in a hotel, in a fpc, living outside on the street, on a [...] documented as of this encounter Care Teams Heat Treater Head Relationship Specialty Start Date End Date Eli Kenny MD [address] [place] [address] PCP - General Internal Medicine 02/06/23 Yifan Torres, RN [address] [place] [address] Registered Nurse Family Medicine 04/26/25 Svitlana Ward 04/26/25 documented as of this encounter
[2025-04-27 20:54] LABS: Bacterial Vaginosis PCR POSITIVE (Negative); Candida Group PCR NOT DETECTED (Not Detect); Candida glab krusei PCR NOT DETECTED (Not Detect); Trichomonas vaginalis PCR NOT DETECTED (Not Detect)
== END 2025-04-27 18:51 | disposition home or self-care (01) ==
LOC: HO.HHCLNP 18:50
PROVIDERS: Visit Provider Family Medicine
DX: N89.8 Other specified noninflammatory disorders of vagina (principal)
CPT/HCPCS: 81515

== ENCOUNTER 2025-05-31 18:11 | Outpatient (REF) | payer MEDICAID, SELFPAY ==
--- OUTSIDE RECORDS SUMMARY | 2025-05-31 10:20 | XMS_ITS | Encounter Summary ---
Author Organization [employer] Address [address] [facility] [address] 7t [place] [address] Care Team Providers Care Grades 1 Through 6 Teacher Name Role Phone Eli Kenny MD Primary Care Pro vider Yifan Torres RN Unavailable [phone] Svitlana Ward Unavailable Reason for Visit * Reason Comments Vaginal Discharge Encounter Details Date Type Department Care Team (Latest Contact Info) Description 05/31/2025 10:20 AM EDT Office Visit [facility] [address] [place] [address] Vulvovaginitis (Primary Dx); Vaginal discharge Social History Tobacco Use Types [...] housing situation today? I have emmanuelle olson 05/18/[address] you li ve. Do you have problems with any of the following? None of the above 05/18/2025 Food Insecurity Answer Date Recorded Within the [...] from getting things needed for daily living? No 05/18/2025 Utilities Answer Date Recorded In the past [...] Sign Reading Time Taken Comments Blood Pressure 113/74 05/31/2025 10:53 AM EDT Pulse 84 05/31/2025 10:53 AM EDT Temperature 36.7 C (98.1 F) 05/31/2025 10:53 AM EDT Respiratory Rate 16 05/31/2025 10:53 AM EDT Oxygen Saturation 98% 05/31/2025 10:53 AM EDT Inhaled Oxygen Concentration - - Weight 60.8 kg (134 lb) 05/31/2025 10:53 AM EDT Height - - Body Mass Index 27.06 04/27/2025 1:27 PM EDT documented in this encounter Miscellaneous Notes * Assessment & Plan Note - Lena Laws MD - 05/31/2025 11:17 AM EDT Associated Problem(s): Vulvovaginitis Most likely candidiasis, prescription Fluconazole tab x 1 d + Clotrimazole cream bid to affected area(perineal) x 10d. Advised to use Desitin cream on toop of clotrimazole to help with skin healing. Keep area clean with warm water only, avoid vaginal douches DC vaginal clotrimazole and we'll call back PRN abn vaginal swab results. Re consult prn documented in this encounter Plan of Treatment Scheduled Orders Name Type Priority Associated Diagnoses Orde r Schedule Chlamydia/N. Gonorrhoeae RNA, TMA, Urogenitial Microbiology Routine Vaginal discharge Ordered: 05/31/2025 Bacterial Vaginosis Microbiology Routine Vaginal discharge Ordered: 05/31/2025 documented as of this encounter Procedures Procedure Name Priority Date/Time Associated Diagnosis Comments POCT , URINE Routine 05/31/2025 11:05 AM EDT Vaginal discharge POCT URINALYSIS DIPSTICK Routine 05/31/2025 11:02 AM EDT Vaginal discharge documented in this encounter Results * POCT , urine manually resulted (05/31/2025 11:05 AM EDT) Preg Test, Ur Negative Negative, Indeterminate, None Detected, Invalid, Specimen unsatisfactory for evaluation, Weakly Positive, 2+ Urine 05/31/2025 11:0 5 AM EDT Lena Laws MD POINT OF CARE TEST ENTER /EDIT ORDERABLES Final Result * POCT urinalysis dipstick manually resulted (05/31/2025 11:02 AM EDT) Color, UA Yellow Clarity, UA Clear Glucose, UA Negative Bilirubin, UA Negative Ketones, UA Positive Comment:Trace Spec Grav, UA 1.025 Blood, UA Negative Negative, None Detected pH, UA 6.0 Protein, UA Trace Urobilinogen, UA 0.2 Leukocytes, UA Negative Negative, Rare, Trace Nitrite, UA Negative Negative, None Detected Appearance, UA OK Urine 05/31/2025 11:0 2 AM EDT Lena Laws MD POINT OF CARE TEST ENTER /EDIT ORDERABLES Final Result documented in this encounter Visit Diagnoses Diagnosis Vulvovaginitis- Primary Unspecified vaginitis and vulvovaginitis Vaginal discharge Leukorrhea, not specified as infective documented in this encounter Additional Health Concerns Assessment Noted Time PHQ-9 Depression Total Score: 3 03/16/20 25 10:37 AM EDT documented as of this encounter Care Teams Grades 1 Through 6 Teacher Relationship Specialty Start Date End Date Eli Kenny MD [address] [place] [address] PCP - General Internal Medicine 02/06/23 Yifan Torres, JESÚS [address] [place] [address] Registered Nurse Family Medicine 04/26/25 Svitlana Ward 04/26/25 documented as of this encounter
--- OUTSIDE RECORDS SUMMARY | 2025-05-31 18:53 | XMS_ITS | Encounter Summary ---
Author Organization [employer] Address [address] [facility] 7t [place] [address] Care Team Providers Care Selling Underwriter Name Role Phone Eli Kenny MD Primary Care Pro vider Yifan Torres RN Unavailable [phone] Svitlana Ward Unavailable Encounter Details Date Type Department Care Team ([facility] st Contact Info) Description 02/02/2025 Orders Only [facility] MED & PEDS [address] [place], [place] [phone] Filemon Monge MD 505 [place] [address] Breast tenderness in female (Primary Dx) Social [...] 3:46 PM EDT) HCG Quantitative <2 mIU/mL [facility] Comment:Weeks post LMP Appro ximate hCG(Last Menstrual Period) Range (mIU/ml)3 - 4 weeks 9 - 1304 - 5 weeks 75 - 2,6005 - 6 weeks 850 - 20,8006 - 7 weeks 4000 - 100,2007 - 12 weeks 11,500 - 289,09602 - 16 weeks 18,300 - 137,38090 - 29 weeks (2nd trimester) 1,400 - 53,09483 - 41 weeks (3rd trimester) 940 - [...] MD LAB BLOOD ORDERABLES Final Result [facility] [address] [place] [address] [phone] documented in this encounter Visit Diagnoses Diagnosis Breast tenderness in female- Primary documented in this encounter Additional Health Concerns Assessment Noted Time PHQ-9 Depression Total Score: 3 05/17/20 23 1:39 PM EDT documented as of this encounter Care Teams Selling Underwriter Relationship Specialty Start Date End Date Eli Kenny MD [address] [place] [address] PCP - General Internal Medicine 02/06/23 Yifan Torres, JESÚS [address] [place] [address] Registered Nurse Family Medicine 04/26/25 Svitlana Ward 04/26/25 documented as of this encounter
--- OUTSIDE RECORDS SUMMARY | 2025-05-31 18:53 | XMS_ITS | Encounter Summary ---
Author Organization [facility] Address [address] [place] [phone] Phone Care Team Providers Care Burlap Man Name Role Phone Ericka Cheek MD Primary Care Provider [phone] Encounter Details Date Type Department Care Team (Late st Contact Info) Description 03/12/2012 Documentation EM Family Medicine [address] [place] [address] Family Medicine, Physician [address] [place], [place] [phone] Social History Tobacco Use Types Packs/Day Years [...] on filedocumented in this encounter Care Teams Burlap Man Relationship Specialty Start Date End Date Ericka Cheek MD [address] [place] [address] [place] [address] PCP - General 04/12/17 02/28/23 documented as of this encounter
--- OUTSIDE RECORDS SUMMARY | 2025-05-31 18:53 | XMS_ITS | Encounter Summary ---
Author Organization [facility] Address [address] [place] [address] Phone Care Team Providers Care Production Hand Name Role Phone Ericka Cheek MD Primary Care Provider [phone] Encounter Details Date Type Department Care Team (Late st Contact Info) Description 05/28/2011 Documentation EM Family Medicine [address] [place] [address] Family Medicine, Physician [address] [place], [place] [phone] Social History Tobacco Use Types Packs/Day Years [...] on filedocumented in this encounter Care Teams Production Hand Relationship Specialty Start Date End Date Ericka Cheek MD [address] [place] [address] [place] [address] PCP - General 04/12/17 02/28/23 documented as of this encounter
--- OUTSIDE RECORDS SUMMARY | 2025-05-31 18:53 | XMS_ITS | Encounter Summary ---
Author Organization [facility] Address [address] [place] [address] Phone Care Team Providers Care Guest Services Name Role Phone Ericka Cheek MD Primary Care Provider [phone] Encounter Details Date Type Department Care Team (Late st Contact Info) Description 04/18/2017 Conversion Encounter [facility] [address] [place] [address] Social History Tobacco Use Types Packs/Day Years [...] on filedocumented in this encounter Care Teams Guest Services Relationship Specialty Start Date End Date Ericka Cheek MD [address] [place] [address] PCP - General 04/12/17 02/28/23 documented as of this encounter
--- OUTSIDE RECORDS SUMMARY | 2025-05-31 18:53 | XMS_ITS | Encounter Summary ---
Author Organization [facility] Address [address] [place] [address] Phone Care Team Providers Care Supervisor Car Installations Name Role Phone Ericka Cheek MD Primary Care Provider [phone] Encounter Details Date Type Department Care Team (Late st Contact Info) Description 05/24/2011 Documentation EM Family Medicine [address] [place] [address] Family Medicine, Physician [address] [place], [place] [phone] Social History Tobacco Use Types Packs/Day Years [...] on filedocumented in this encounter Care Teams Supervisor Car Installations Relationship Specialty Start Date End Date Ericka Cheek MD [address] [place] [address] [place] [address] PCP - General 04/12/17 02/28/23 documented as of this encounter
--- OUTSIDE RECORDS SUMMARY | 2025-05-31 18:53 | XMS_ITS | Clinical Summary ---
Author Organization [employer] Address [address] [place] [address] Care Team Providers Care Ground Surveillance Systems Operator Name Role Phone Eli Kenny MD Primary Care Pro vider Yifan Torres RN Unavailable [phone] Svitlana Ward Unavailable Allergies No known [...] for outbreak 36 tablet 2 5 Active fluconazole (Diflucan) 150 MG tablet Take 1 tablet (150 mg) by mouth 1 (one) time for 1 dose. 1 tablet 5 05/31/20 25 Active clotrimazole (Lotrimin) 1 % cream Apply topically 2 times daily for 10 days. 30 g 5 06/10/20 25 Active metroNIDAZOLE (Flagyl) 500 MG tablet Take 1 tablet (500 mg) by mouth 2 times daily for 7 days. 14 tablet 5 05/04/20 25 Active Problems Problem Noted Date Diagnosed Date Vulvovaginitis 05/31/2025 Assessment & Plan (05/31/2025 11:55 AM EDT): Most likely candidiasis, prescription Fluconazole tab x 1 d + Clotrimazole cream bid to affected area(perineal) x 10d. Advised to use Desitin cream on toop of clotrimazole to help with skin healing. Keep area clean with warm water only, avoid vaginal douches DC vaginal clotrimazole and we'll call back PRN abn vaginal swab results. Re consult prn BV (bacterial vaginosis) 05/07/2025 Assessment & Plan (05/07/2025 4:12 PM EDT): - recurrent - patient prefers oral medication - start metronidazole for presumptive BV, sending BV panel to confirm Pelvic pain 07/16/2024 Acute right-sided low back pain without sciatica 05/20/2024 Breast pain 05/20/2024 History of tooth extraction 07/19/2023 Dental caries 07/16/2023 Family conflict 06/24/2023 Healthcare maintenance 05/18/2023 High risk sexual behavior 05/18/2023 Decreased hearing 05/18/2023 Tobacco use 05/18/2023 Assessment & Plan (05/07/2025 4:14 PM EDT): - continue working on smoking cessation Abnormal CT scan 05/18/2023 Depression, unspecified 05/18/2023 [...] from aunt PLAN: 1. Follow up with [facility]: Not recommended for follow-up 2. Patient goal is be connected with a therapist 3. Behavioral Recommendations a. Utilize coping skills provided b. Engage in OP therapy once established c. Reach out to [facility] for additional support Headache 05/18/2023 Assessment & Plan (05/07/2025 4:14 PM EDT): - recently seen in ED - pain has improved, and patient is more concerned about BV at this time - follow up with PCP Encounters * This document contains information received from the source organization and may not represent a complete record from that organization. Date Type Department Care Team Description 05/31/2025 10:20 AM EDT Office Visit [facility] [address] [address] Vulvovaginitis (Primary Dx); Vaginal discharge 05/31/2025 Patient Outreach [address] [address] Eli Kenny MD Care Coordination (C3 [facility] Svitlana Ward telephone call outreach) 05/31/2025 Travel 05/18/2025 Patient Outreach [address] [address] Eli Kenny MD Care Coordination (C3 [facility] Svitlana Ward telephone call outreach) 05/11/2025 Patient Outreach [address] [address] Svitlana Ward Care Coordination (C3 CM-W Svitlana Ward telephone call outreach ) 05/11/2025 Patient Outreach [address] [address] Eli Kenny MD Care Coordination (C3 [facility]-CHW Svitlana Ward telephone call outreach ) 04/28/2025 Results Follow-Up [address] [address] Briana Nino MD Bacterial Vaginosis 04/27/2025 1:30 PM EDT Office Visit [address] [address] Briana Nino MD Vaginal discharge (Primary Dx); Tobacco use; Nonintractable headache, unspecified chronicity pattern, unspecified headache type; BV (bacterial vaginosis) 04/27/2025 Orders Only [address] [address] Briana Nino MD 04/27/2025 Travel 04/26/[address] [address] Eli Kenny MD Nurse Triage 04/26/2025 Patient Outreach [address] [address] Eli Kenny MD Care Coordination ([facility] telephone call outreach) 04/26/2025 Patient Outreach [address] [address] Eli Kenny MD Care Coordination ([address] chart review) 04/26/2025 Patient Outreach [address] [address] Eli Kenny MD Care Coordination ([facility]- chart review) 04/26/2025 Patient Outreach [address] [address] Eli Kenny MD 04/11/2025 Refill [facility] [address] [place] [address] Gurdeep Haile MD 03/30/2025 3:15 PM EDT Telemedicine [address] [address] Trent Madrigal CNM Vaginal irritation (Primary Dx); Herpes simplex infection; Depression, unspecified depression type 03/30/2025 Travel 03/29/[address] [address] Eli Kenny MD Chart Prep 03/25/2025 Results Follow-Up [address] [address] Trent Madrigal CNM Herpes Simplex Virus 1 and 2 (IgG), Type-Specific Antibodies 03/24/2025 Results Follow-Up [address] [address] Trent Madrigal CNM HIV-1/2 Antigen and Antibodies, Fourth Generation, with Reflexes 03/22/2025 Orders Only [address] [address] Trent Madirgal CNM Ulcer of perianal area, unspecified ulcer stage (CMS/HCC) (Primary Dx) 03/17/[address] [address] Eli Kenny MD Results 03/17/2025 Results Follow-Up [facility] [address] [place] [address] Filemon Monge MD hCG, Total, Quantitative 03/16/2025 10:00 AM EDT Office Visit [address] [address] Trent Madrigal CNM Ulcer of perianal area, unspecified ulcer stage (CMS/HCC) (Primary Dx) 03/16/2025 Orders Only [address] [address] Trent Madrigal CNM 03/16/2025 Travel 03/15/[address] [address] Trent Madrigal CNM chart prep 03/15/2025 Results Follow-Up [facility] [address] [place] [address] Gurdeep Haile MD POCT urinalysis dipstick manually resulted, Bacterial Vaginosis Panel, Chlamydia/N. Gonorrhoeae RNA, TMA, Urogenitial, Additional followed-up results: 4 03/15/[address] [address] Eli Kenny MD Nurse Triage 03/15/[address] [address] Eli Kenny MD Results 03/12/2025 3:40 PM EDT Office Visit [facility] [address] [place] [address] Gurdeep Haile MD STD exposure (Primary Dx) 03/12/2025 Travel 03/12/[address] [address] Eli Kenny MD Nurse Triage from Last [...] (134 lb) 05/31/2025 10:53 AM EDT Height 149.9 cm (4' 11 ) 04/27/2025 1:27 PM EDT Body Mass Index 27.06 04/27/2025 1:27 PM EDT Plan of Treatment Health Maintenance Due Date Last Done Comments Dental Oral Exam 08/26/2009 02/23/2009 Dental Prophylaxis 06/27/2012 12/26/2011, 0 09/21/2011, 04/17/2011, Additional history exists Pneumococcal Vaccine: Pediatrics (0 to 5 Years) and At-Risk Patients (6 to 49) Years (1 of 2 - PCV) 2012 Dental X-Ray: Bitewings 07/17/2024 07/16/20, 10/02/2013, 09/21/2011, Additional history exists Dental X-Ray: Full Mouth 04/07/2025 04/06/2022, 06/03 COVID-19 Vaccine ( season) 2025 Influenza Vaccine (#1) 2025 , 05/17/2023, 05/29/2016, Additional history exists Alcohol/Substance Use Screening 03/16/2026 03/16/2025 Depression Screening 03/16/2026 03/16/2025, 03/16/20 Disability Screening 03/16/2026 03/16/2025 Family Planning (PISQ) 03/30/2026 03/30/2025 SDOH Screening 05/18/2026 05/18/2025 Tobacco Screening 05/31/2026 05/31/2025 DTaP/Tdap/Td Vaccines (9 - Td or Tdap) 07/25/2026 07/25/2016, 07/01/2013, 08/14/2005, Additional history exists Lipid Panel 09/04/2028 09/04/2023 Cervical Cancer Screening 10/01/2029 HPV/Cotest 10/01/2029 10/01/2024 Pap Smear 10/01/2029 10/01/2024 Zoster Vaccines (1 of 2) 2043 RSV Patients and Patients Aged 60 years or older (1 - 1-dose 75+ series) 2068 HIB Vaccines Completed 11/30/1994, 01/1994, 01/10/1994, Additional history exists IPV Vaccines Completed 01/31/1999, 0609/1998, 06/07/1994, Additional history exists Meningococcal Vaccine Aged [...] Routine 05/31/2025 11:02 AM EDT Vaginal discharge POCT , URINE Routine 05/31/2025 11:02 AM EDT STD exposure BACTERIAL VAGINOSIS PANEL Routine 04/27/2025 2:23 PM EDT HSV 1/2 IGG,TYPE SPECIFIC AB Routine 03/24/2025 [...] Routine 03/12/2025 3:32 PM EDT STD exposure HPV DNA, LOW/HIGH RISK Routine 10/01/2024 11:36 [...] urine manually resulted (05/31/2025 11:05 AM EDT) Only the most recent of2 resultswithin the time period is included. Preg Test, Ur Negative Negative, Indeterminate, None Detected, Invalid, Specimen unsatisfactory for evaluation, Weakly Positive, 2+ Urine 05/31/2025 11:0 5 AM EDT Lena Laws MD POINT OF CARE TEST ENTER /EDIT ORDERABLES Final Result * POCT urinalysis dipstick manually resulted (05/31/2025 11:02 AM EDT) Only the most recent of2 [...] TEST ENTER /EDIT ORDERABLES Final Result * (ABNORMAL) Bacterial Vaginosis (04/27/2025 2:23 PM EDT) Only the most recent of2 resultswithin the time period is included. TRICHOMONAS VAGINALIS DETECTION BY PCR NOT DETECTED Not Detect [facility] BACTERIAL VAGINOSIS DETECTION BY PCR POSITIVE(A) Negative [facility] Comment:The BV organism targ ets [...] DETECTION BY PCR NOT DETECTED Not Detect [facility] Nadiya glab krusei PCR NOT DETECTED Not Detect [facility] 04/27/2025 2:23 PM EDT 04/27/2025 6:55 PM EDT Briana Nino MD LAB MICROBIOLOGY - GENERAL ORDER CHRISTINE Final Result Performing Organization Address [facility] Co de Phone Number [facility] [address] [place] [phone] * Syphilis Screen (03/24/2025 9:09 AM EDT) Only the most recent of2 resultswithin the time period is included. Syphilis Screen Nonreactive Nonreactive [facility] Blood 03/24/2025 9:09 AM EDT 03/24/2025 11:13 AM EDT us Filemon Monge MD LAB BLOOD ORDERABLES Final Result Performing Organization Address [facility] Co de Phone Number [facility] [address] [place] [phone] * Hepatitis C Antibody with Reflex to HCV, RNA, Quantitative, Real-Time PCR (03/24/2025 9:09 AM EDT) Only the most recent of2 resultswithin the time period is included. Hepatitis C Antibody Nonreactive Nonreactive [facility] Comment:Antibodies to HCV no t detected; does not exclude early acuteHCV infection. Blood Venous blood specimen / Unknown 03/24/2025 9:09 AM EDT 03/24/2025 11:07 AM EDT [facility] ENTERPRISE SYSTEMS MANAGER LAB BLOOD ORDERABLES Final Re sult Performing Organization Address [facility]/ZIP Co de Phone Number [facility] [address] [place] [address] [phone] * (ABNORMAL) Herpes Simplex Virus 1 and 2 (IgG), Type-Specific Antibodies (03/24/2025 9:09 AM EDT) Herpes Simplex Type 1 IgG >58.00(A ) index [facility] Herpes Simplex Type 2 IgG >23.00(A ) index [facility] Comment:Index Interpretation ----- <0.90 Negative 0.90-1.09 [...] immunocompromised patients,or screening.For additional information, please refer tohttp://education.Airgain/faq/[email or web address](This link is being provided for informational/educational purposes only.)THIS TEST WAS PERFORMED AT:[facility] [place] [phone] MORRIS MD Blood Venous blood specimen / Unknown 03/24/2025 9:09 AM EDT 03/24/2025 11:13 AM EDT Trent MONTES LAB BLOOD ORDERABLES Shruti l Result Performing Organization Address [facility]/ZIP Co de Phone Number [facility] [address] [place] [address] [phone] * HIV-1/2 Antigen and Antibodies, Fourth Generation, with Reflexes (03/24/2025 9:09 AM EDT) Only the most recent of2 resultswithin the time period is included. HIV AB/AG Nonreactive Nonreactive [facility] Comment:HIV-1 p24 Ag and/or HIV-1/HIV-2 Ab not detected.A test result that is nonreactive does not exclude thepossibility of exposure to or infection with HIV-1 and/orHIV-2. Nonreactive results in this assay for individualswith prior exposure to HIV-1 and/or HIV-2 may be due toantigen and antibody levels that are below the limit ofdetection of this assay.The [place] HIV Ag/Ab Combo assay result andsupplemental assay results should be interpreted inconjunction with the patient's clinical presentation,history and other laboratory results. If the results areinconsistent with clinical evidence, additional testing issuggested to confirm the result. Blood Venous blood specimen / Unknown 03/24/2025 9:09 AM EDT 03/24/2025 11:13 AM EDT us Filemon Monge MD LAB BLOOD ORDERABLES Final Result [facility] [address] [place] [phone] * (ABNORMAL) Urinalysis Complete (03/24/2025 9:09 AM EDT) Color Urine Yellow [facility] Appearance Urine Clear [facility] PH 5.5 5.0 - 9.0 [facility] Glucose Urine UA Negative Negative mg/dL [facility] Urine Blood Small (1+)(A) Negative [facility] Specific [place] - Urine 1.025 1.005 - 1.025 [facility] Urine Protein Negative Neg-Trace mg/dL [facility] Urine Ketones Trace Negative mg/dL [facility] Nitrite Urine Negative Negative [facility] Leukocyte Esterase Urine Negative Negative [facility] RBC Urine 6-10(A) 0 - 2 /HPF [facility] Urine WBC 0-5 0 - 5 /HPF [facility] Urine Squamous Epithelial Cell 6-10 0 - 2 /HPF [facility] Urine Bacteria None Seen None Seen [facility] Hyaline Casts, Urine 0-2 0 - 2 /LPF [facility] Urine (Urine, Random) 03/24/2025 9:09 AM EDT 03/24/2025 11:17 AM EDT us Filemon Monge MD LAB URINE ORDERABLES Final Result Performing Organization Address [facility] Co de Phone Number [facility] [address] [place] [address] [phone] * Herpes Simplex Virus Culture with Reflex Typing (03/16/2025 10:31 AM EDT) HSV Culture/Type SEE NOTE [facility] Comment:HERPES SIMPLEX VIRUS CULTURE W/RFL TO TYPING Micro Number: [id number] Test Status: Final Specimen Source: Not given Specimen Quality: Adequate HSV Culture: Not IsolatedTHIS TEST WAS PERFORMED AT:[facility] [id number] MERATI,MD 03/16/2025 10:3 1 AM EDT 03/16/2025 4:55 PM EDT us Trent aMdrigal CNM LAB MICROBIOLOGY - GENERA L ORDERABLES Final Result Performing Organization Address City/[facility]/ZIP Co de Phone Number [facility] [address] [place] [address] [phone] * hCG, Total, Quantitative (03/12/2025 3:46 PM EDT) HCG Quantitative <2 mIU/mL [facility] Comment:Weeks post LMP Appro ximate hCG(Last Menstrual Period) Range (mIU/ml)3 - 4 weeks 9 - 1304 - 5 weeks 75 - 2,6005 - 6 weeks 850 - 20,8006 - 7 weeks 4000 - 100,2007 - 12 weeks 11,500 - 289,28011 - 16 weeks 18,300 - 137,66852 - 29 weeks (2nd trimester) 1,400 - 53,29052 - 41 weeks (3rd trimester) 940 - [...] Monge MD LAB BLOOD ORDERABLES Final Result [facility] [address] [place] [phone] * Chlamydia/N. Gonorrhoeae RNA, TMA, Urogenitial (03/12/2025 3:35 PM EDT) CT PCR NOT DETECTED Not Detect. [facility] Comment:A not detected test result [...] psychologicalconsequences. NG PCR NOT DETECTED Not Detect. [facility] Comment:A not detected test result [...] GENERAL ORDERABLES Final Result Performing Organization Address [facility] Co de Phone Number [facility] [address] [place] [phone] * Culture, Urine, Routine (03/12/2025 3:35 PM EDT) Urine Urine specimen obtained by clean catch procedure / Unknown 03/12/2025 3:35 PM EDT 03/12/2025 5:33 PM EDT Comment:UACC Narrative [facility] - 03/14/2025 1:16 PM EDT Urine Culture No growth. Specimen Source: Urine clean catch Gurdeep Vogel MD LAB MICROBIOLOGY - GENERAL ORDERABLES Final Result Performing Organization Address [facility] Co de Phone Number [facility] [address] [place] [phone] * HPV DNA, Low/High Risk (10/01/2024 11:36 AM EST) HPV High Risk Negative Negative [facility] HPV Genotype 16 Negative Negative [facility] HPV Genotype 18 Negative Negative [facility] Comment:HPV testing performe d at [facility] (CLIA#[id number]), [address] [place] [address].Testing for HPV was performed using the Annette [...] CNM LAB BLOOD ORDERABLES Shruti sullivan Result [facility] [address] [place] [phone] * Pap Smear (10/01/2024 11:36 AM EST) Swab Cervix uteri structure / Unknown 10/01/2024 11:36 AM EST 10/02/2024 6:30 AM EST [facility] - 10/13/2024 12:29 PM EST ----- ------- Name: MitchellCadence Age/Sex: 29/F : 1995 Unit#: [id number] Attend Dr: TRENT MADRIGAL CNM Re10/01/24 Status: DEP REF Location: HO.HHCLNP Disch: ----- ------- SPEC : [id number] RECD: 10/02/24 STATUS: KAROL SPRINGER NUM: [id number] [place]: 10/01/24-[address] [facility] [address]: TRENT MADRIGAL CNM ENTERED: 10/02/24 [...] CNM LAB CYTOLOGY ORDERABLES F inal Result [facility] [address] [place] [phone] * (ABNORMAL) Lipid Panel, Standard (09/04/2023 12:18 PM EST) Triglycerides 117 <150 mg/dL [facility] Comment:Desirable Triglyceri de: less than 150 mg/dLBorderline High Triglyceride 150-199 mg/dLHigh Triglyceride: 200-499 mg/dLVery High Triglyceride: greater than or equal to 5OO mg/dL Cholesterol 186 <200 mg/dL [facility] Comment:Desirable Cholestero l: less than 200 mg/dLBorderline High Cholesterol: 200-239 mg/dLHigh Cholesterol: greater than 239 mg/dL LDL Cholesterol Calculated 122(H) <100 mg/dL [facility] Comment:Desirable LDL: less than 100 mg/dLNear Optimal/Above Optimal LDL: 110- 129 mg/dLBorderline High LDL: 130-159 mg/dLHigh LDL: 160-189 mg/dLVery High LDL: greater than or equal to 190 mg/dL HDL Cholesterol 41 >40 mg/dL [facility] Comment:Desirable HDL: great er than 40 mg/dL Note: This HDL assay may give artificially low results in patients with liver disease. Blood Venous blood specimen / Unknown 09/04/2023 12:18 PM EST 09/04/2023 1:10 PM EST Eli Tejada MD LAB BLOOD ORDERAB LES Final Result [facility] [address] [place], [place] [phone] from Last 3 Months or Most Recently Relevant to Health Maintenance Insurance [facility] C3 DENTAL-[facility] MEDICAID STAND ADULT Care Teams Ground Surveillance Systems Operator Relationship Specialty Start Date End Date Eli Kenny MD [address] [place] [phone] PCP - General Internal Medicine 02/06/23 Yifan Torres, RN [address] [place] [address] Registered Nurse Family Medicine 04/26/25 Svitlana Ward 04/26/25
--- OUTSIDE RECORDS SUMMARY | 2025-05-31 18:53 | XMS_ITS | Clinical Summary ---
Author Organization [facility] Address [address] [place] [address] Phone Care Team Providers Care Laundry Pricing Clerk Name Role Phone Stacey Nayak NP Primary Care Provider [phone] Allergies No known active allergies Medications No known medications Active Problems No known active problems Encounters Date Type Department Care Team Description 04/24/2025 7:19 PM EDT - 04/24/2025 10:06 PM EDT Emergency [facility] Emergency [address] [place] [address] Tanvir Durand MD Migraine without aura and without status migrainosus, not intractable (Primary Dx) Discharge Disposition: Home or Self Care from Last 3 Months Surgical History Surgery Date Site/Laterality Comments TONSILLECTOMY PROCEDURE: HISTORICAL TONSILLECTOMY OTHER SURGICAL HISTORY PROCEDURE: ---- OTHER ----; COMMENT: ear surgeries SECTION PROCEDURE: MS DELIVERY ONLY Medical History Medical History Date [...] Years) (1 of 2 - PCV) 2012 Depression Screening 09/02/2024 Social Influencers of Health Screening 04/24/2025 COVID-19 Vaccine ( - season) 2025 Influenza Vaccine (#1) 2025 , 05/17/2023, 05/29/2016, Additional history exists DTaP,Tdap,and Td Vaccines (9 - Td or Tdap) 07/25/2026 07/25/2016, 07/01/2013, 08/14/2005, Additional history exists Cervical Cancer Screening: Pap Smear 10/01/2027 10/01/2024 Cholesterol Screening (Lipid Panel) 09/04/2028 09/04/2023 RSV Immunization Adult Patients (1 - 1-dose 75+ series) 2068 HIB [...] and culture (04/24/2025 7:52 PM EDT) Specific [place] Urine 1.037(H) 1.003 - 1.030 LAB URINALYSIS - AUTOMATED METHOD 04/24/2025 8:22 PM EDT [facility] pH, Urine 7.0 5.0 - 8.0 pH LAB URINALYSIS - AUTOMATED METHOD 04/24/2025 8:22 PM EDT [facility] Leukocytes, Urine Negative Negative LAB URINALYSIS - AUTOMATED METHOD 04/24/2025 8:22 PM [facility] Nitrite, Urine Negative Negative LAB URINALYSIS - AUTOMATED METHOD 04/24/2025 8:22 PM [facility] Protein, Urine Trace <=Trace mg/dL LAB URINALYSIS - AUTOMATED METHOD 04/24/2025 8:22 PM [facility] Glucose, Urine Negative Negative mg/dL LAB URINALYSIS - AUTOMATED METHOD 04/24/2025 8:22 PM [facility] Ketones, Urine Trace(A) Negative mg/dL LAB URINALYSIS - AUTOMATED METHOD 04/24/2025 8:22 PM [facility] Urobilinogen, Urine 1.0 0.2 - 1.0 mg/dL LAB URINALYSIS - AUTOMATED METHOD 04/24/2025 8:22 PM [facility] Bilirubin, Urine Negative Negative LAB URINALYSIS - AUTOMATED METHOD 04/24/2025 8:22 PM [facility] Blood, Urine Trace(A) Negative LAB URINALYSIS - AUTOMATED METHOD 04/24/2025 8:22 PM [facility] RBC, Urine 4.2(H) 0 - 4 /HPF LAB URINALYSIS - AUTOMATED METHOD 04/24/2025 8:22 PM [facility] WBC, Urine 0.9 0 - 4 /HPF LAB URINALYSIS - AUTOMATED METHOD 04/24/2025 8:22 PM [facility] Squamous Epithelial, Urine >100(H) 0 - 60 /LPF LAB URINALYSIS - AUTOMATED METHOD 04/24/2025 8:22 PM [facility] Bacteria, Urine Few(A) Negative /HPF LAB URINALYSIS - AUTOMATED METHOD 04/24/2025 8:22 PM [facility] Hyaline Casts, Urine 0.8 0 - 3 /LPF LAB URINALYSIS - AUTOMATED METHOD 04/24/2025 8:22 PM EDT [facility] Urine Urine specimen obtained by clean catch procedure / Unknown Non-blood Collection / Unknown 04/24/2025 7:52 PM EDT 04/24/2025 8:05 PM EDT Tanvir Durand MD LAB URINE ORDERABLES Final Res ult Performing Organization Address City/[facility] Co de Phone Number [facility] [address] [place] [address], [place] [phone] * [place] urine culture tube (04/24/2025 7:52 PM EDT) Extra Tube Hold for add-ons. 04/24/2025 10:02 PM EDT [facility] Comment:Auto resulted. Urine Urine specimen obtained by clean catch procedure / Unknown Non-blood Collection / Unknown 04/24/2025 7:52 PM EDT 04/24/2025 8:05 PM EDT Tanvir Durand MD LAB URINE ORDERABLES Final Res ult Performing Organization Address [facility] de Phone Number [facility] [address] [place] [address], [place] [phone] * HCG qualitative, urine (04/24/2025 7:52 PM EDT) Preg Test, Ur Negative Negative 04/24/2025 8:27 PM EDT [facility] Urine Urine specimen obtained by clean catch procedure / Unknown Non-blood Collection / Unknown 04/24/2025 7:52 PM EDT 04/24/2025 8:05 PM EDT Tanvir Durand MD LAB URINE ORDERABLES Final Res ult Performing Organization Address City/[facility] Co de Phone Number [facility] [address] [place] [address], * (ABNORMAL) CBC auto differential (04/24/2025 7:50 PM EDT) [facility] WBC 7.2 4.8 - 10.8 K/mcL LAB [...] % LAB [facility] Basophils Relative 0.3 % LAB HEMETOLOGY METHOD 04/[facility]2025 8:[facility] Immature Granulocytes Relative 0.3 % LAB HEMETOLOGY METHOD 04/24/2025 8:58 PM [facility] Neutrophils Absolute 3.91 1.50 - 7.00 K/mcL LAB HEMETOLOGY METHOD 04/24/2025 8:58 [facility] Lymphocytes Absolute 2.81 1.00 - 5.00 K/mcL LAB HEMETOLOGY METHOD 04/24/2025 8:58 PM EDT [facility] Monocytes Absolute 0.34 0.20 - 1.00 K/mcL LAB HEMETOLOGY METHOD 04/24/2025 8:58 PM EDT [facility] Eosinophils Absolute 0.10 0.00 - 0.50 K/mcL LAB HEMETOLOGY METHOD 04/24/2025 8:58 PM [facility] Basophils Absolute 0.02 0.00 - 0.20 [...] ORDERABLES Final Res ult Performing Organization Address City/[facility]/ZIP Co de Phone Number [facility] [address] [place] [address], [place] [phone] * hCG, serum, qualitative (04/24/2025 7:50 PM EDT) Pathologist [facility] hCG Qual Negative Negative 04/24/2025 8:27 PM EDT [facility] Blood Venous blood specimen / Unknown Venipuncture / Unknown 04/24/2025 7:50 PM EDT 04/24/2025 8:05 PM EDT Tanvir Durand MD LAB BLOOD ORDERABLES Final Res ult Performing Organization Address [facility] Co de Phone Number [facility] [address] [place] [address], [place] [phone] * Magnesium (04/24/2025 7:50 PM EDT) Magnesium 2.1 1.9 - 2.6 mg/dL LAB CHEMISTRY METHOD 04/24/2025 9:25 PM EDT [facility] Blood Venous blood specimen / Unknown Venipuncture / Unknown 04/24/2025 7:50 PM EDT 04/24/2025 8:05 PM EDT us Tanvir Durand MD LAB BLOOD ORDERABLES Final Res ult Performing Organization Address City/[facility]/ZIP Co de Phone Number [facility] [address] [place] [address], * Comprehensive Metabolic Panel (CMP) (04/24/2025 7:50 PM EDT) Sodium 141 133 - 145 mmol/L LAB CHEMISTRY METHOD 04/24/2025 8:32 PM [facility] Potassium 4.2 3.5 - 5.5 mmol/L LAB CHEMISTRY METHOD 04/24/2025 8:32 PM [facility] Comment:Hemolysis present Chloride 109 96 - 110 mmol/L LAB CHEMISTRY METHOD 04/24/2025 8:32 PM [facility] CO2 27 21 - 32 mmol/L LAB CHEMISTRY METHOD 04/24/2025 8:32 PM [facility] Anion Gap 5 3 - 11 LAB CHEMISTRY METHOD 04/24/2025 8:32 PM [facility] Glucose 98 70 - 100 mg/dL LAB CHEMISTRY METHOD 04/24/2025 8:32 PM [facility] BUN 15 5 - 25 mg/dL LAB CHEMISTRY METHOD 04/24/2025 8:32 PM [facility] Creatinine 1.04 0.50 - 1.10 mg/dL LAB CHEMISTRY METHOD 04/24/2025 8:32 PM [facility] eGFR 74 >=60 mL/min/1. 73m2 LAB CHEMISTRY METHOD 04/24/2025 8:32 PM [facility] Comment:Calculation based on the Chronic Kidney Disease Epidemiology Collaboration (CKD-EPI) equation refit without adjustment for race. BUN/Creatinine Ratio 14.4 LAB CHEMISTRY METHOD 04/24/2025 8:32 PM [facility] Calcium 8.6 8.5 - 10.5 mg/dL LAB CHEMISTRY METHOD 04/24/2025 8:32 PM [facility] AST (SGOT) 20 10 - 42 unit/L LAB CHEMISTRY METHOD 04/24/2025 8:32 PM EDT [facility] Comment:Hemolysis present ALT (SGPT) 27 10 - 60 unit/L LAB CHEMISTRY METHOD 04/24/2025 8:32 PM EDT [facility] Alkaline Phosphatase 80 42 - 121 unit/L LAB CHEMISTRY METHOD 04/24/2025 8:32 PM EDT [facility] Total Protein 6.8 6.0 - 8.0 g/dL LAB CHEMISTRY METHOD 04/24/2025 8:32 PM EDT [facility] Albumin 3.7 3.2 - 5.0 g/dL LAB CHEMISTRY METHOD 04/24/2025 8:32 PM EDT [facility] Total Bilirubin 0.4 0.0 - 1.4 mg/dL LAB CHEMISTRY METHOD 04/24/2025 8:32 PM EDT [facility] Blood Venous blood specimen / Unknown Venipuncture / Unknown 04/24/2025 7:50 PM EDT 04/24/2025 8:05 PM EDT us Tanvir Durand MD LAB BLOOD ORDERABLES Final Res ult [facility] [address] [place] [address], [place] [phone] from Last 3 Months Insurance MEDICAID - [place] Care Teams Laundry Pricing Clerk Relationship Specialty Start Date End Date Stacey Nayak NP [address] [phone] PCP - General 10/09/16
--- OUTSIDE RECORDS SUMMARY | 2025-05-31 18:53 | XMS_ITS | Encounter Summary ---
Author Organization [employer] Address [address] [facility] 7 [place] [address] Care Team Providers Care Steam Fitter Supervisor Name Role Phone Eli Kenny MD Primary Care Pro vider Yifan Torres RN Unavailable [phone] Svitlana Ward Unavailable Reason for Visit * Reason Onset Date Comments Nurse Triage 04/26/2025 Encounter Details Date Type Department Care Team ([facility] Contact Info) Description 04/26/2025 Telephone [facility] [address] [place] [address] Eli Kenny MD [address] [place], [place] [phone] Nurse Triage Social History Tobacco Use Types [...] with others, in a hotel, in a chcf, living outside on the street, on a [...] EDT Triage call, Pt was seen in [facility] ED 04/24/25 for migraine headache. Report is [...] report ED visit on : Date: Hospital: [facility] Seen for: Migrane Symptomatic Yes *if yes message should go to Triage Contact pt at [phone] documented in this encounter Plan of Treatment Not on file documented as of this encounter Visit Diagnoses Not on filedocumented in this encounter Additional Health Concerns Assessment Noted Time PHQ-9 Depression Total Score: 3 03/16/20 25 10:37 AM EDT documented as of this encounter Care Teams Steam Fitter Supervisor Relationship Specialty Start Date End Date Eli Kenny MD [address] [place] [address] PCP - General Internal Medicine 02/06/23 Yifan Torres RN [address] [place] [address] Registered Nurse Family Medicine 04/26/25 Svitlana Ward 04/26/25 documented as of this encounter
--- OUTSIDE RECORDS SUMMARY | 2025-05-31 18:53 | XMS_ITS | Encounter Summary ---
Author Organization [facility] Address [address] [place] [address] Phone Care Team Providers Care Materials And Corrosion Engineer Name Role Phone Ericka Cheek MD Primary Care Provider [phone] Encounter Details Date Type Department Care Team (Late st Contact Info) Description 12/06/2010 Documentation EM Family Medicine [address] [place] [address] Family Medicine, Physician [address] [place], [place] [phone] Social History Tobacco Use Types Packs/Day Years [...] on filedocumented in this encounter Care Teams Materials And Corrosion Engineer Relationship Specialty Start Date End Date Ericka Cheek MD [address] [place] [address] [place] [address] PCP - General 04/12/17 02/28/23 documented as of this encounter
--- OUTSIDE RECORDS SUMMARY | 2025-05-31 18:53 | XMS_ITS | Encounter Summary ---
Author Organization [employer] Address [address] [facility] 7t [place] [address] Care Team Providers Care Wellness Trainer Name Role Phone Eli Kenny MD Primary Care Pro vider Yifan Torres RN Unavailable [phone] Svitlana Ward Unavailable Encounter Details Date Type Department Care Team (Late st Contact Info) Description 04/28/2025 Results Follow-Up [facility] [address] [place] [address] Briana Nino MD [address] [place] [address] Bacterial Vaginosis Social History Tobacco Use Types Packs/Day Years [...] with others, in a hotel, in a care home, living outside on the street, on [...] documented as of this encounter Care Teams Wellness Trainer Relationship Specialty Start Date End Date Eli Kenny MD [address] [place] [address] PCP - General Internal Medicine 02/06/23 Yifan Torres, JESÚS [address] [place] [address] Registered Nurse Family Medicine 04/26/25 Svitlana Ward 04/26/25 documented as of this encounter
--- OUTSIDE RECORDS SUMMARY | 2025-05-31 18:53 | XMS_ITS | Encounter Summary ---
Author Organization [employer] Address [address] [facility] [address] 7[address] [place] [address] Care Team Providers Care Strategic Account Director Name Role Phone Eli Kenny MD Primary Care Pro vider Yifan Torres RN Unavailable [phone] Svitlana Ward Unavailable Encounter Details Date Type Department Care Team (Latest Contact Info) Description 05/31/2025 Travel Social History Tobacco Use Types Packs/Day [...] documented as of this encounter Care Teams Strategic Account Director Relationship Specialty Start Date End Date Eli Kenny MD [address] [place] [address] PCP - General Internal Medicine 02/06/23 Yifan Torres RN [address] [place] [address] Registered Nurse Family Medicine 04/26/25 Svitlana Ward 04/26/25 documented as of this encounter
--- OUTSIDE RECORDS SUMMARY | 2025-05-31 18:53 | XMS_ITS | Encounter Summary ---
Author Organization [employer] Address [address] [facility] 7t [place] [address] Care Team Providers Care Bottom Pounder Cement Shoes Name Role Phone Eli Kenny MD Primary Care Pro vider Yifan Torres RN Unavailable [phone] Svitlana Ward Unavailable Encounter Details Date Type Department Care Team ([facility] st Contact Info) Description 09/01/2024 Orders Only [facility] [address] [place], [place] [phone] Filemon Monge MD [address] [place] [address] Social History Tobacco Use Types Packs/Day Years [...] as of this encounter Care Teams Bottom Pounder Cement Shoes Relationship Specialty Start Date End Date Eli Kenny MD [address] [place] [address] PCP - General Internal Medicine 02/06/23 Yifan Torres, RN [address] [place] [address] Registered Nurse Family Medicine 04/26/25 Svitlana Ward 04/26/25 documented as of this encounter
--- OUTSIDE RECORDS SUMMARY | 2025-05-31 18:53 | XMS_ITS | Encounter Summary ---
Author Organization [facility] Address [address] [place] [address] Phone Care Team Providers Care Mail Carrier Technician Name Role Phone Ericka Cheek MD Primary Care Provider [phone] Encounter Details Date Type Department Care Team (Late st Contact Info) Description 05/24/2011 Documentation EM Family Medicine [address] [place] [address] Family Medicine, Physician [address] [place], [place] [phone] Social History Tobacco Use Types Packs/Day Years [...] on filedocumented in this encounter Care Teams Mail Carrier Technician Relationship Specialty Start Date End Date Ericka Cheek MD [address] [place] [address] [place] [address] PCP - General 04/12/17 02/28/23 documented as of this encounter
--- OUTSIDE RECORDS SUMMARY | 2025-05-31 18:53 | XMS_ITS ---
Author Organization [facility] Address [address] [place] [address] [place] [address] Care Team Providers Care Director Athletic Name Role Phone Eli Kenny MD Primary Care Pro vider Yifan Torres RN Unavailable [phone] Svitlana Ward Unavailable CM Complex Status:Outreach In Progress (Enrolling) Start date:04/26/2025 Enrollment reason:ADT Feed Overview ADT-[facility] ED 04/24/25 Case Team Name Relationship Phone Yifan Torres RN(Responsible Staff) Registered N malena [phone] Continued Care and Services Coordination
--- OUTSIDE RECORDS SUMMARY | 2025-05-31 18:53 | XMS_ITS | Encounter Summary ---
Author Organization [facility] Address [address] [place] [address] Phone Care Team Providers Care Paper Mill Supervisor Name Role Phone Ericka Cheek MD Primary Care Provider [phone] Encounter Details Date Type Department Care Team (Late st Contact Info) Description 02/21/2011 Documentation EM Family Medicine [address] [place] [address] Family Medicine, Physician [address] [place], [place] [phone] Social History Tobacco Use Types Packs/Day Years [...] on filedocumented in this encounter Care Teams Paper Mill Supervisor Relationship Specialty Start Date End Date Ericka Cheek MD [address] [place] [address] [place] [address] PCP - General 04/12/17 02/28/23 documented as of this encounter
--- OUTSIDE RECORDS SUMMARY | 2025-05-31 18:53 | XMS_ITS | Encounter Summary ---
Author Organization [facility] Address [address] [place] [address] Phone Care Team Providers Care Human Resources Communications Manager Name Role Phone Ericka Cheek MD Primary Care Provider [phone] Encounter Details Date Type Department Care Team (Late st Contact Info) Description 02/21/2011 Documentation EM Family Medicine [address] [place] [address] Family Medicine, Physician [address] [place], [place] [phone] Social History Tobacco Use Types Packs/Day Years [...] on filedocumented in this encounter Care Teams Human Resources Communications Manager Relationship Specialty Start Date End Date Ericka Cheek MD [address] [place] [address] [place] [address] PCP - General 04/12/17 02/28/23 documented as of this encounter
--- OUTSIDE RECORDS SUMMARY | 2025-05-31 18:53 | XMS_ITS | Encounter Summary ---
Author Organization [facility] Address [address] [place] [address] Phone Care Team Providers Care Carbider Name Role Phone Ericka Cheek MD Primary Care Provider [phone] Encounter Details Date Type Department Care Team (Late st Contact Info) Description 12/16/2013 Documentation EM Family Medicine [address] [place] [address] Family Medicine, Physician [address] [place], [place] [phone] Social History Tobacco Use Types Packs/Day Years [...] on filedocumented in this encounter Care Teams Carbider Relationship Specialty Start Date End Date Ericka Cheek MD [address] [place] [address] [place] [address] PCP - General 04/12/17 02/28/23 documented as of this encounter
--- OUTSIDE RECORDS SUMMARY | 2025-05-31 18:53 | XMS_ITS | Encounter Summary ---
Author Organization [facility] Address [address] [place] [address] [address] [place] [address] Care Team Providers Care Aix System Administrator Name Role Phone Eli Kenny MD Primary Care Pro vider Yifan Torres RN Unavailable [phone] Svitlana Ward Unavailable Encounter Details Date Type Department Care Team (Late st Contact Info) Description 02/15/2023 Abstract [facility] [address] [place] [address] Zaki Dumont DMD [address] [place] [address] Social History Tobacco Use Types Packs/Day Years [...] on filedocumented in this encounter Care Teams Aix System Administrator Relationship Specialty Start Date End Date Eli Kenny MD [address] [place] [address] PCP - General Internal Medicine 02/06/23 Yifan Torres, JESÚS [address] [place] [address] Registered Nurse Family Medicine 04/26/25 Svitlana Ward 04/26/25 documented as of this encounter
--- OUTSIDE RECORDS SUMMARY | 2025-05-31 18:53 | XMS_ITS | Encounter Summary ---
Author Organization [facility] Address [address] [place] [address] Phone Care Team Providers Care Drapery Inspector Name Role Phone Ericka Cheek MD Primary Care Provider [phone] Encounter Details Date Type Department Care Team (Late st Contact Info) Description 05/28/2011 Documentation EM Family Medicine [address] [place] [address] Family Medicine, Physician [address] [place], [place] [phone] Social History Tobacco Use Types Packs/Day Years [...] on filedocumented in this encounter Care Teams Drapery Inspector Relationship Specialty Start Date End Date Ericka Cheek MD [address] [place] [address] [place] [address] PCP - General 04/12/17 02/28/23 documented as of this encounter
--- OUTSIDE RECORDS SUMMARY | 2025-05-31 18:53 | XMS_ITS | Clinical Summary ---
Author Organization [facility] Address [address] [place] [address] Phone Care Team Providers Care Chief Contract Officer Name Role Phone Unavailable Primary Care Provider [...] 03/01/1995, Additional history exists Influenza Vaccines (#1) 2025 05/23/2011, 04/25 COVID-19 Vaccine ( season) 2025 Hepatitis B Vaccines Completed 08/01/1994, 1993, 1993 [...] complete this topic Procedures * Due to [email or web address] law, this organization might not be sharing sensitive test results. Procedure Name Priority Date/Time Associated Diagnosis Comments CHLAMYDIA AND GONORRHEA, AMPLIFIED Routine 05/24/2011 1:14 PM EDT from Last 3 Months or Most Recently Relevant to Health Maintenance Results * Due to [email or web address] law, this organization might not be sharing sensitive test results. * Chlamydia and Gonorrhoea, Amplified (05/24/2011 1:14 PM EDT) Pathologist [facility] URINE GC AMP PROBE NEGATIVE [facility] Comment: NO NEISSERIA GONORRHOEAE RNA DETECTED IN THIS PATIENT'S SAMPLE. (REFERENCE RANGE/NORMAL VALUE: NOT DETECTED) NOTE: THIS TEST USES CHIP TUNER MEDIATED AMPLIFICATION METHOD TO DETECT rRNA FROM [...] OTHER AGENTS. URINE CHLAMYDIA AMP PROBE NEGATIVE [facility] Comment: NO CHLAMYDIA TRACHOMATIS RNA DETECTED IN THIS PATIENT'S SAMPLE. (REFERENCE RANGE/NORMAL VALUE: NOT DETECTED) 05/24/2011 1:14 PM EDT Narrative [facility] - 05/24/2011 1:14 PM EDT URINE CHLAMYDIA GC AMP PROBE us Heather Maynard NP LAB MICROBIOLOGY - GENERAL ORD ERABLES Final Result [facility] [address] [place] [address], [place] from Last 3 Months or Most Recently Relevant to Health Maintenance
--- OUTSIDE RECORDS SUMMARY | 2025-05-31 18:53 | XMS_ITS | Encounter Summary ---
Author Organization [facility] Address [address] [place] [address] Phone Care Team Providers Care Dialysis Chief Equipment Technician Name Role Phone Ericka Cheek MD Primary Care Provider [phone] Encounter Details Date Type Department Care Team (Late st Contact Info) Description 02/21/2011 Documentation EM Family Medicine [address] [place] [address] Family Medicine, Physician [address] [place], [place] [phone] Social History Tobacco Use Types Packs/Day Years [...] on filedocumented in this encounter Care Teams Dialysis Chief Equipment Technician Relationship Specialty Start Date End Date Ericka Cheek MD [address] [place] [address] [place] [address] PCP - General 04/12/17 02/28/23 documented as of this encounter
--- OUTSIDE RECORDS SUMMARY | 2025-05-31 18:53 | XMS_ITS | Encounter Summary ---
Author Organization [employer] [facility] Address [address] [facility] 7t [place] [address] Care Team Providers Care Psychometrist Name Role Phone Eli Kenny MD Primary Care Pro vider Yifan Torres RN Unavailable [phone] Svitlana Ward Unavailable Reason for Visit * Reason Comments Med Refill Encounter Details Date Type Department Care Team ([facility] st Contact Info) Description 03/22/2023 Refill [facility] MEDICINE [address] [place] [address] Edel Montenegro DO [address] [place] [address] Social History Tobacco Use Types Packs/Day Years [...] on filedocumented in this encounter Care Teams Psychometrist Relationship Specialty Start Date End Date Eli Kenny MD [address] [place] [address] PCP - General Internal Medicine 02/06/23 Yifan Torres, JESÚS [address] [place] [address] Registered Nurse Family Medicine 04/26/25 Svitlana Ward 04/26/25 documented as of this encounter
--- OUTSIDE RECORDS SUMMARY | 2025-05-31 18:53 | XMS_ITS | Encounter Summary ---
Author Organization [employer] Address [address] [facility] 7 [place] [address] Care Team Providers Care Terminal Operations Manager Name Role Phone Eli Kenny MD Primary Care Pro vider Yifan Torres RN Unavailable [phone] Svitlana Ward Unavailable Reason for Visit * Reason Comments Care [facility]ination [facility] call outreach Encounter Details Date Type Department Care Team (Latest Contact Info) Description 05/31/2025 Patient Outreach [facility] MEDICINE [address] [place] [address] Eli Kenny MD [address] [place] [address] [facility] call outreach) Social History Tobacco [...] encounter Progress Notes * Svitlana Ward - 05/31/2025 1:21 PM EDT CHW Svitlana Ward placed outbound call to patient introducing herself from [facility] CM Department, in regards to remind patient of Adult Complex Care program initial assessment appt for tomorrow 06/01/25 @ 1:00 PM via telephone. Patient's name and was confirmed. Patient is aware and confirmed will be available for call and has no barriers on attending call. Patient verbalized understanding and agrees with plan. documented in this encounter Plan of Treatment Not on file documented as of this encounter Visit Diagnoses Not on filedocumented in this encounter Additional Health Concerns Assessment Noted Time PHQ-9 Depression Total Score: 3 03/16/20 25 10:37 AM EDT documented as of this encounter Care Teams Terminal Operations Manager Relationship Specialty Start Date End Date Eli Kenny MD [address] [place] [address] PCP - General Internal Medicine 02/06/23 Yifan Torres, RN [address] [facility] [place] [address] Registered Nurse Family Medicine 04/26/25 Svitlana Ward 04/26/25 documented as of this encounter
--- OUTSIDE RECORDS SUMMARY | 2025-05-31 18:53 | XMS_ITS | Encounter Summary ---
Author Organization [employer] Address [address] [facility] [address] 7[address] [place] [address] Care Team Providers Care Operations Research Manager Name Role Phone Eli Kenny MD Primary Care Pro vider Yifan Torres RN Unavailable [phone] Svitlana Ward Unavailable Reason for Visit * Reason Onset Date Comments medication 07/19/2023 Encounter Details Date Type Department Care Team ([facility] st Contact Info) Description 07/19/2023 Telephone [facility] [address] [place] [address] Alfredito Diaz DDS [address] [place], [place] [phone] medication Social History Tobacco Use Types Packs/Day [...] documented as of this encounter Care Teams Operations Research Manager Relationship Specialty Start Date End Date Eli Kenny MD [address] [place] [address] PCP - General Internal Medicine 02/06/23 Yifan Torres, JESÚS [address] [place] [address] Registered Nurse Family Medicine 04/26/25 Svitlana Ward 04/26/25 documented as of this encounter
--- OUTSIDE RECORDS SUMMARY | 2025-05-31 18:53 | XMS_ITS | Encounter Summary ---
Author Organization [facility] Address [address] [place] [address] Phone Care Team Providers Care Help Desk Operator Name Role Phone Ericka Cheek MD Primary Care Provider [phone] Encounter Details Date Type Department Care Team (Late st Contact Info) Description 08/20/2011 Documentation EM Family Medicine [address] [place] [address] Family Medicine, Physician [address] [place], [place] [id number] Social History Tobacco Use Types Packs/Day Years [...] on filedocumented in this encounter Care Teams Help Desk Operator Relationship Specialty Start Date End Date Ericka Cheek MD [address] [place] [address] [place] [address] PCP - General 04/12/17 02/28/23 documented as of this encounter
--- OUTSIDE RECORDS SUMMARY | 2025-05-31 18:53 | XMS_ITS ---
Author Organization [employer] Address [address] [place] [address] Care Team Providers Care Servomechanism Designer Name Role Phone Eli Kenny MD Primary Care Pro vider Yifan Torres RN Unavailable [phone] Svitlana Ward Unavailable [facility] Complex Status:Enrolled (Active) Start date:04/26/2025 Enrollment date:05/18/2025 Enrollment reason:ADT Feed Overview ADT-[facility] ED 04/24/25 Case Team Name Relationship Phone Svitlana Ward(Responsible Staff) Continued Care and Services Coordination
--- OUTSIDE RECORDS SUMMARY | 2025-05-31 18:53 | XMS_ITS | Encounter Summary ---
Author Organization [employer] Address [address] [facility] [address] 7t [place] [address] Care Team Providers Care Dental Technician Instructor Name Role Phone Eli Kenny MD Primary Care Pro vider Yifan Torres RN Unavailable [phone] Svitlana Ward Unavailable Reason for Visit * Reason Comments Med Refill Encounter Details Date Type Department Care Team ([facility] Contact Info) Description 04/11/2025 Refill [facility] [address] [place] [address] Gurdeep Haile MD 505 [place] [address] Social History Tobacco Use Types Packs/Day Years [...] with others, in a hotel, in a usp, living outside on the street, on a [...] documented as of this encounter Care Teams Dental Technician Instructor Relationship Specialty Start Date End Date Eli Kenny MD [address] [place] [address] PCP - General Internal Medicine 02/06/23 Yifan Torres, JESÚS 505 [place] [address] Registered Nurse Family Medicine 04/26/25 Svitlana Ward 04/26/25 documented as of this encounter
[2025-06-01 04:43] LABS: Bacterial Vaginosis PCR NEGATIVE (Negative); Candida Group PCR NOT DETECTED (Not Detect); Candida glab krusei PCR NOT DETECTED (Not Detect); Trichomonas vaginalis PCR NOT DETECTED (Not Detect)
[2025-06-01 05:14] LABS: CT PCR NOT DETECTED (Not Detect.); NG PCR NOT DETECTED (Not Detect.)
== END 2025-05-31 18:12 | disposition home or self-care (01) ==
LOC: HO.HHCLNP 18:11
PROVIDERS: Visit Provider Internal Medicine
DX: N89.8 Other specified noninflammatory disorders of vagina (principal)
CPT/HCPCS: 81515; 87491; 87591

== ENCOUNTER 2025-06-21 15:54 | Outpatient (REF) | payer MEDICAID, SELFPAY ==
[2025-06-21 17:32] LABS: CT PCR NOT DETECTED (Not Detect.); NG PCR NOT DETECTED (Not Detect.)
[2025-06-21 17:39] LABS: Bacterial Vaginosis PCR NEGATIVE (Negative); Candida Group PCR NOT DETECTED (Not Detect); Candida glab krusei PCR NOT DETECTED (Not Detect); Trichomonas vaginalis PCR NOT DETECTED (Not Detect)
--- OUTSIDE RECORDS SUMMARY | 2025-06-21 20:13 | XMS_ITS | Encounter Summary ---
Author Organization [facility] Address [address] [place] [address] Phone Care Team Providers Care Polisher Brass Name Role Phone Ericka Cheek MD Primary Care Provider [phone] Encounter Details Date Type Department Care Team (Late st Contact Info) Description 08/20/2011 Documentation EM Family Medicine [address] [place] [address] Family Medicine, Physician [address] [place], [place] [phone] Social History Tobacco Use Types Packs/Day Years [...] on filedocumented in this encounter Care Teams Polisher Brass Relationship Specialty Start Date End Date Ericka Cheek MD [address] [place] [address] [place] [address] PCP - General 04/12/17 02/28/23 documented as of this encounter
--- OUTSIDE RECORDS SUMMARY | 2025-06-21 20:13 | XMS_ITS | Encounter Summary ---
Author Organization [facility] Address [address] [place] [address] Phone Care Team Providers Care Oracle Business Analyst Name Role Phone Ericka Cheek MD Primary Care Provider [phone] Encounter Details Date Type Department Care Team (Late st Contact Info) Description 02/21/2011 Documentation EM Family Medicine [address] [place] [address] Family Medicine, Physician [address] [place], [place] [phone] Social History Tobacco Use Types Packs/Day Years [...] on filedocumented in this encounter Care Teams Oracle Business Analyst Relationship Specialty Start Date End Date Ericka Cheek MD [address] [place] [address] [place] [address] PCP - General 04/12/17 02/28/23 documented as of this encounter
--- OUTSIDE RECORDS SUMMARY | 2025-06-21 20:13 | XMS_ITS | Clinical Summary ---
Author Organization [facility] Address [address] [place] [address] Phone Care Team Providers Care Reduction Furnace Operator Name Role Phone Unavailable Primary Care Provider [...] complete this topic Procedures * Due to [place] law, this organization might not be sharing sensitive test results. Procedure Name Priority Date/Time Associated Diagnosis Comments CHLAMYDIA AND GONORRHEA, AMPLIFIED Routine 05/24/2011 1:14 PM EDT from Last 3 Months or Most Recently Relevant to Health Maintenance Results * Due to [place] law, this organization might not be sharing sensitive test results. * Chlamydia and Gonorrhoea, Amplified (05/24/2011 1:14 PM EDT) Pathologist [facility] URINE GC AMP PROBE NEGATIVE [facility] Comment: NO NEISSERIA GONORRHOEAE RNA DETECTED IN THIS PATIENT'S SAMPLE. (REFERENCE RANGE/NORMAL VALUE: NOT DETECTED) NOTE: THIS TEST USES BOWLING BALL ENGRAVER MEDIATED AMPLIFICATION METHOD TO DETECT rRNA FROM [...] Final Result [facility] [address] [place] [address], [place] from Last 3 Months or Most Recently Relevant to Health Maintenance
--- OUTSIDE RECORDS SUMMARY | 2025-06-21 20:13 | XMS_ITS | Encounter Summary ---
Author Organization [facility] Address [address] [place] [address] Phone Care Team Providers Care Elementary [employer] Art Teacher Name Role Phone Ericka Cheek MD Primary Care Provider [phone] Encounter Details Date Type Department Care Team (Late st Contact Info) Description 02/21/2011 Documentation EM Family Medicine [address] [place] [address] Family Medicine, Physician [address] [place], [place] [phone] Social History Tobacco Use Types Packs/Day Years [...] on filedocumented in this encounter Care Teams Elementary [employer] Art Teacher Relationship Specialty Start Date End Date Ericka Cheek MD [address] [place] [address] [place] [address] PCP - General 04/12/17 02/28/23 documented as of this encounter
--- OUTSIDE RECORDS SUMMARY | 2025-06-21 20:13 | XMS_ITS | Encounter Summary ---
Author Organization [facility] Address [address] [place] [address] Phone Care Team Providers Care Emergency Dispatch Operator Name Role Phone Ericka Cheek MD Primary Care Provider [phone] Encounter Details Date Type Department Care Team (Late st Contact Info) Description 05/28/2011 Documentation EM Family Medicine [address] [place] [address] Family Medicine, Physician [address] [place], [place] [phone] Social History Tobacco Use Types Packs/Day Years [...] on filedocumented in this encounter Care Teams Emergency Dispatch Operator Relationship Specialty Start Date End Date Ericka Cheek MD [address] [place] [address] [place] [address] PCP - General 04/12/17 02/28/23 documented as of this encounter
--- OUTSIDE RECORDS SUMMARY | 2025-06-21 20:13 | XMS_ITS | Encounter Summary ---
Author Organization [facility] Address [address] [place] [address] Phone Care Team Providers Care Automotive Artist Name Role Phone Ericka Cheek MD Primary Care Provider [phone] Encounter Details Date Type Department Care Team (Late st Contact Info) Description 05/28/2011 Documentation EM Family Medicine [address] [place] [address] Family Medicine, Physician [address] [place], [place] [phone] Social History Tobacco Use Types Packs/Day Years [...] on filedocumented in this encounter Care Teams Automotive Artist Relationship Specialty Start Date End Date Ericka Cheek MD [address] [place] [address] [place] [address] PCP - General 04/12/17 02/28/23 documented as of this encounter
--- OUTSIDE RECORDS SUMMARY | 2025-06-21 20:13 | XMS_ITS | Encounter Summary ---
Author Organization [facility] Address [address] [place] [address] Phone Care Team Providers Care Sales Representative Malt Liquors Name Role Phone Ericka Cheek MD Primary Care Provider [phone] Encounter Details Date Type Department Care Team (Late st Contact Info) Description 04/18/2017 Conversion Encounter [facility] [address] [place] [address] Social History Tobacco Use Types Packs/Day Years [...] on filedocumented in this encounter Care Teams Sales Representative Malt Liquors Relationship Specialty Start Date End Date Ericka Cheek MD [address] [place] [address] PCP - General 04/12/17 02/28/23 documented as of this encounter
--- OUTSIDE RECORDS SUMMARY | 2025-06-21 20:13 | XMS_ITS | Encounter Summary ---
Author Organization [facility] Address [address] [place] [address] Phone Care Team Providers Care Refrigeration Insulator Name Role Phone Ericka Cheek MD Primary Care Provider [phone] Encounter Details Date Type Department Care Team (Late st Contact Info) Description 12/16/2013 Documentation EM Family Medicine [address] [place] [address] Family Medicine, Physician [address] [place], [place] [phone] Social History Tobacco Use Types Packs/Day Years [...] on filedocumented in this encounter Care Teams Refrigeration Insulator Relationship Specialty Start Date End Date Ericka Cheek MD [address] [place] [address] [place] [address] PCP - General 04/12/17 02/28/23 documented as of this encounter
--- OUTSIDE RECORDS SUMMARY | 2025-06-21 20:13 | XMS_ITS | Encounter Summary ---
Author Organization [facility] Address [address] [place] [address] Phone Care Team Providers Care Fly Setter Name Role Phone Ericka Cheek MD Primary Care Provider [phone] Encounter Details Date Type Department Care Team (Late st Contact Info) Description 02/21/2011 Documentation EM Family Medicine [address] [place] [address] Family Medicine, Physician [address] [place], [place] [phone] Social History Tobacco Use Types Packs/Day Years [...] on filedocumented in this encounter Care Teams Fly Setter Relationship Specialty Start Date End Date Ericka Cheek MD [address] [place] [address] [place] [address] PCP - General 04/12/17 02/28/23 documented as of this encounter
--- OUTSIDE RECORDS SUMMARY | 2025-06-21 20:13 | XMS_ITS | Encounter Summary ---
Author Organization [facility] Address [address] [place] [address] Phone Care Team Providers Care Billet Bed Operator Name Role Phone Ericka Cheek MD Primary Care Provider [phone] Encounter Details Date Type Department Care Team (Late st Contact Info) Description 05/24/2011 Documentation EM Family Medicine [address] [place] [address] Family Medicine, Physician [address] [place], [place] [phone] Social History Tobacco Use Types Packs/Day Years [...] on filedocumented in this encounter Care Teams Billet Bed Operator Relationship Specialty Start Date End Date Ericka Cheek MD [address] [place] [address] [place] [address] PCP - General 04/12/17 02/28/23 documented as of this encounter
--- OUTSIDE RECORDS SUMMARY | 2025-06-21 20:13 | XMS_ITS | Encounter Summary ---
Author Organization [facility] Address [address] [place] [address] Phone Care Team Providers Care Center Manager Name Role Phone Ericka Cheek MD Primary Care Provider [phone] Encounter Details Date Type Department Care Team (Late st Contact Info) Description 05/24/2011 Documentation EM Family Medicine [address] [place] [address] Family Medicine, Physician [address] [place], [place] [phone] Social History Tobacco Use Types Packs/Day Years [...] on filedocumented in this encounter Care Teams Center Manager Relationship Specialty Start Date End Date Ericka Cheek MD [address] [place] [address] [place] [address] PCP - General 04/12/17 02/28/23 documented as of this encounter
--- OUTSIDE RECORDS SUMMARY | 2025-06-21 20:13 | XMS_ITS | Encounter Summary ---
Author Organization [facility] Address [address] [place] [address] Phone Care Team Providers Care Hydraulic Strainer Operator Name Role Phone Ericka Cheek MD Primary Care Provider [phone] Encounter Details Date Type Department Care Team (Late st Contact Info) Description 03/12/2012 Documentation EM Family Medicine [address] [place] [address] Family Medicine, Physician [address] [place], [place] [phone] Social History Tobacco Use Types Packs/Day Years [...] on filedocumented in this encounter Care Teams Hydraulic Strainer Operator Relationship Specialty Start Date End Date Ericka Cheek MD [address] [place] [address] [place] [address] PCP - General 04/12/17 02/28/23 documented as of this encounter
--- OUTSIDE RECORDS SUMMARY | 2025-06-21 20:13 | XMS_ITS | Encounter Summary ---
Author Organization [facility] Address [address] [place] [address] Phone Care Team Providers Care Rock Worker Name Role Phone Ericka Cheek MD Primary Care Provider [phone] Encounter Details Date Type Department Care Team (Late st Contact Info) Description 12/06/2010 Documentation EM Family Medicine [address] [place] [address] Family Medicine, Physician [address] [place], [place] [phone] Social History Tobacco Use Types Packs/Day Years [...] on filedocumented in this encounter Care Teams Rock Worker Relationship Specialty Start Date End Date Ericka Cheek MD [address] [place] [address] [place] [address] PCP - General 04/12/17 02/28/23 documented as of this encounter
== END 2025-06-21 15:55 | disposition home or self-care (01) ==
LOC: HO.HHCLNP 15:54
PROVIDERS: Visit Provider Nurse Practitioner Family
DX: Z20.2 Contact with and (suspected) exposure to infections with a predominantly sexual mode of transmission (principal); N89.8 Other specified noninflammatory disorders of vagina
CPT/HCPCS: 81515; 87491; 87591